=== PATIENT | female | born 1945 | race Hispanic/Latino ===

== ENCOUNTER 2019-01-19 11:37 | Emergency (ER) | payer MEDICARE ==
--- NOTE | 2019-01-19 11:47 | Emergency Department Report ---
Blank Doc - Documentation Documentation: This is a 73-year-old female brought by son for MH. Son stated that patient has not being taking her medications. Stated has psychosis. Denies any SI/HI. This initial assessment/diagnostic orders/clinical plan/treatment(s) is/are subject to change based on patient's health status, clinical progression and re- assessment by fellow clinical providers in the ED. Further treatment and workup at subsequent clinical providers discretion. Patient/guardians urged not to elope from the ED as their condition may be serious if not clinically assessed and managed. Initial orders include: 1- Patient sent to MAIN ED for further evaluation and treatment 2- MH labs
[2019-01-19 12:08] LABS: Basophils # (Auto) 0.1 K/mm3 (0.0-0.1); Basophils % (Auto) 0.7 % (0.0-1.8); Eosinophils # (Auto) 0.1 K/mm3 (0.0-0.4); Eosinophils % (Auto) 1.1 % (0.0-4.3); Hematocrit 38.1 % (30.3-42.9); Lymphocytes # (Auto) 1.2 K/mm3 (1.2-5.4); Lymphocytes % (Auto) 16.5 % (13.4-35.0); Mean Corpuscular HGB Conc 34 % (30-34); Mean Corpuscular Volume 93 fl (79-97); Monocytes # (Auto) 0.4 K/mm3 (0.0-0.8); Monocytes % (Auto) 5.9 % (0.0-7.3); Platelet Count 272 K/mm3 (140-440); Red Blood Count 4.11 M/mm3 (3.65-5.03); Red Cell Distribution Width 14.2 % (13.2-15.2)
[2019-01-19 12:28] LABS: BUN/Creatinine Ratio 14; Blood Urea Nitrogen 10 mg/dL (7-17); Calcium 8.7 mg/dL (8.4-10.2); Hemolysis Index 8
[2019-01-19 13:42] VITALS: BP 141/84
--- NOTE | 2019-01-19 14:51 | Emergency Department Report ---
HPI - General Chief Complaint: Psych Time Seen by Provider: 01/19/19 11:44 - HPI HPI: 73-year-old female presents to the emergency department, brought in by her son, for a mental health evaluation. The patient has a past psychiatric history of paranoid schizophrenia. The son describes some acute on chronic psychosis for this patient. He says that the patient has been hearing voices and responding to internal stimuli. He says that she will call him while he was at work before throughout the day saying that there are people in the house and that people are trying to kill her. This causes her to run up and down the stairs in the house and oftentimes she will have a fall. The patient has phoned the police multiple times secondary to these paranoid delusions and is also been "bothering my neighbors." She has a past medical history of diabetes and hypertension for which she has been compliant with her medications as the son gives them to her. However she is not always compliant with her psychiatric medications. ED Past Medical Hx - Past Medical History Hx Diabetes: Yes Hx Psychiatric Treatment: Yes (anxiety, schizophrenia) Additional medical history: peripheral neuropathy - Social History Smoking Status: Current Every Day Smoker Substance Use Type: None - Medications Home Medications: Home Medications Medication Instructions Recorded Confirmed Last Taken Type Oxybutynin [Ditropan] 0 mg PO BID 04/06/15 01/20/19 2 Days Ago History ~01/18/19 metFORMIN [Glucophage] 500 mg PO BID 04/06/15 01/20/19 2 Days Ago History ~01/18/19 risperiDONE [RisperiDONE] 2 mg PO DAILY 04/06/15 01/20/19 2 Days Ago History ~01/18/19 Losartan Potassium 50 mg PO DAILY 01/19/19 01/20/19 2 Days Ago History ~01/18/19 Risperdal 3 mg PO HS 01/19/19 01/20/19 Unknown History ED Review of Systems ROS: Stated complaint: PSYCH EVAL/INJURED HAND Other details as noted in HPI Comment: All other systems reviewed and negative Constitutional: denies: chills, fever Eyes: denies: eye pain, vision change ENT: denies: ear pain, throat pain Respiratory: denies: cough, shortness of breath Cardiovascular: denies: chest pain, palpitations Gastrointestinal: denies: abdominal pain, vomiting Genitourinary: denies: dysuria, discharge Musculoskeletal: denies: back pain, arthralgia Skin: denies: rash, lesions Neurological: denies: headache, weakness Psychiatric: denies: homicidal thoughts, suicidal thoughts Physical Exam - Physical Exam Vital Signs: Vital Signs 01/19/19 01/19/19 11:44 12:40 Temperature 98 F 97.4 F L Pulse Rate 101 H 93 H Respiratory 18 18 Rate Blood Pressure 201/178 Blood Pressure 141/84 [Right] O2 Sat by Pulse 98 99 Oximetry Physical Exam: GENERAL: The patient is well-developed well-nourished. HEENT: Normocephalic. Atraumatic. Patient has moist mucous membranes. EYES: Extraocular motions are intact. NECK: Supple. Trachea is midline. CHEST/LUNGS: Clear to auscultation. There is no respiratory distress noted. HEART/CARDIOVASCULAR: Regular. There is no tachycardia. There is no obvious murmur. ABDOMEN: Abdomen is soft, nontender. Patient has normal bowel sounds. There is no abdominal distention. SKIN: Skin is warm and dry. NEURO: The patient is awake, alert. The patient has no focal neurologic deficits. The patient has normal speech. MUSCULOSKELETAL: There is no tenderness or deformity. There is no evidence of acute injury. ED Course Vital Signs 01/19/19 01/19/19 11:44 12:40 Temperature 98 F 97.4 F L Pulse Rate 101 H 93 H Respiratory 18 18 Rate Blood Pressure 201/178 Blood Pressure 141/84 [Right] O2 Sat by Pulse 98 99 Oximetry ED Medical Decision Making - Lab Data Result diagrams: 01/19/19 11:54 01/19/19 11:54 - Medical Decision Making This patient presents to the emergency department for a mental health evaluation. Given the son's description of her recent behavior, the patient does appear to be having an exacerbation of her schizophrenia and appears to be having some acute psychosis. The patient was not as forthcoming with myself but did share some of her paranoia and delusions with the mental health route sales delivery drivers supervisor. With all of this information combined, the patient does appear to need a 1013 and inpatient psychiatric evaluation/treatment. Patient's labs are mostly unremarkable. She has some hyperglycemia does not appear to be in diabetic ketoacidosis. Blood sugar is about 230 and we will restart her metformin. Her blood pressure, at first, was severely elevated but came down to a much more reasonable, almost normal level, without any antihypertensive medication given. The rest of her labs thus far been unremarkable. We are waiting a urine sample for urinalysis and urine drug screen. If positive for UTI, the patient will be placed on an antibiotic. Otherwise she appears clear for psychiatric placement. - Differential Diagnosis schizophrenia, dementia, bipolar disorder, substance abuse Critical Care Time: No Critical care attestation.: If time is entered above; I have spent that time in minutes in the direct care of this critically ill patient, excluding procedure time. ED Disposition Clinical Impression: Acute psychosis, Paranoia, Delusions Disposition: [id number]/TX-65 PSY HOSP/PSY UNIT Is pt being admited?: No Condition: Stable Referrals: [facility] [Other] - 3-5 Days Time of Disposition: 14:53
[2019-01-19 20:53] LABS: Bacteria,Urine 2+ /HPF (Negative); Bilirubin,Urine NEG (Negative); Blood,Urine SM (Negative); Color,Urine Amber (Yellow); Hyaline Casts,Urine 4 /LPF; Mucus,Urine 2+ /HPF; Sperm,Urine 1+ /HPF (NP)
[2019-01-19 20:56] LABS: Benzodiazepines Screen,Urine PRESUMPTIVE NEGATIVE; Cannabinoid Screen,Urine PRESUMPTIVE NEGATIVE; Cocaine Screen,Urine PRESUMPTIVE NEGATIVE; Methadone Screen,Urine PRESUMPTIVE NEGATIVE; Opiate Screen,Urine PRESUMPTIVE NEGATIVE
[2019-01-19 21:12] LABS: Amphetamine Screen,Urine PRESUMPTIVE POSITIVE
== END 2019-01-19 20:45 ==
LOC: EEVIPCON 11:37 → ED 11:37
DX: F23 Brief psychotic disorder (principal); F22 Delusional disorders; E11.9 Type 2 diabetes mellitus without complications; F20.9 Schizophrenia, unspecified; F17.200 Nicotine dependence, unspecified, uncomplicated
CPT/HCPCS: 36415; 80048; 80307; 81001; 82962; 85025; 99284; G0480; 80320

== ENCOUNTER 2019-01-19 17:25 | Inpatient (IN) | payer MEDICARE ==
--- NOTE | 2019-01-20 15:31 | History and Physical Report ---
GP History & Physical - History of Present Illness Date of admission: 01/19/19 Date of Examination: 01/20/19 Reason for Admission: Impaired reality testing, Failure of Outpatient Treatment, Psychopathology interference, Severe anxiety/depression, Unable to care for self Chief Complaint: I am hearing voices and I am afraid. History of Present Illness: The patient is a 73yo disabled female with history of Schizophrenia. She presents with distressing auditory hallucinations and paranoid delusions. The patient reports that her son is being attacked and she hears her son screaming for help "help me, have mercy" repeatedly. She feels very distressed by this - stating "it is killing me" She also believes that the same people that are beating are son are coming after her. She feels unsafe outside of the hospital. She denies SI/HI. She is not able to sleep at night. She finds Risperidone beneficial. Legal Status: Voluntary Patient Problems: Current Active Problems Paranoid schizophrenia (Acute) Reaction to Hospitalization: Accepting Substance History - Substance History Drug Use: none Hx Tobacco Use: No Alcohol Use: No Past psychiatric history - Past Medical History Past Medical History: hypertension - past Psychiatric treatment and history Psych: Schizophrenia psychiatric treatment history: One previous admission at [facility] many years ago. No history of suicide attempt. - Social History Social history: (She is disabled, lives with her son) Review of Systems All systems: negative Psychiatric: hallucinations, paranoia Results - Results Labs/Vitals: Last Vital Signs Temp 98.1 F 01/20/19 11:00 Pulse 105 H 01/20/19 11:00 Resp 18 01/20/19 11:00 BP 110/57 01/20/19 11:00 Pulse Ox Physical Examination - Constitutional Vitals: Vital Signs Temp Pulse Resp BP Pulse Ox 98.1 F 105 H 18 110/57 01/20/19 11:00 01/20/19 11:00 01/20/19 11:00 01/20/19 11:00 Temperature -Last 24 Hours Temperature 98.1 F General appearance: Present: no acute distress - EENT Eyes: Present: PERRL ENT: hearing intact - Neck Neck: Present: supple - Respiratory Respiratory effort: normal Mental Status Exam - Vital signs Last Vital Signs Temp 98.1 F 01/20/19 11:00 Pulse 105 H 01/20/19 11:00 Resp 18 01/20/19 11:00 BP 110/57 01/20/19 11:00 Pulse Ox - Exam Orientation: time, place, person Affect: anxious Mood: congruent with affect Thought content: delusions Thought Process: Intact, Goal Oriented Perceptions: auditory, hallucinations Speech: normal rate and pattern Concentration: focused Motor activity: normal Level of consciousness: alert Memory: Intact Sleep Symptoms: Difficulty Falling Asleep Appetite: decreased Interaction: cooperative Assessment and Plan - Psychiatric problem (1) Paranoid schizophrenia Current Visit: Yes Status: Acute plan to address problem: PLAN Patient will be admitted for inpatient psychiatric evaluation, medication adjustment and close monitoring The patient's behavior, mood, sleep and appetite will be closely monitored. Patient will be enrolled in individual and group therapeutic sessions and encouraged to attend. Patient will be provided with a safe and structured environment. Patient's physical health needs will be addressed by the Hospitalist. Social Assessment will be completed, and the Carpenters Supervisor will work with patient and family to ensure a suitable and safe disposition Medication adjustment will be made as clinically indicated The patient agreed on the treatment plan, understood the risk, benefit, alternative treatment, potential consequence of no treatment, and gave informed consent. Physician Certification - Certification Statement Physician Certification Statement: This is an acknowledgement statement that SAMUEL CAMARGO is a 73 year old F who requires inpatient psychiatric admission for treatment which could reasonably be expected to improve the patient's condition for Schizophrenia Estimated period of time patient will need to remain in the hospital: 7 days Plan for post-hospital care: Out-patient care
[2019-01-20] MEDS ORDERED: TYLENOL PO ONE (16:01)
[2019-01-20] MEDS: GLUCOPHAGE PO SCH ×2 (16:15→21:33)
--- NOTE | 2019-01-20 17:57 | Consultation ---
History of Present Illness - Reason for Consult Consult date: 01/20/19 medical consult Requesting physician: EMANI ZAPATA - History of Present Illness 73-year-old female patient with significant past medical history of hypertension, diabetes mellitus and schizophrenia was admitted Inpatient psych unit and hospitalist service was requested for medical consult. Patient has history of diabetes mellitus on oral hypoglycemics metformin And hypertension on oral antihypertensives When I evaluated the patient confirms that she takes metformin Has no new complaints, denies chest pain shortness of breath Complaints of some foul smell while urinating No history suggestive of fever Past History Past Medical History: diabetes, hypertension Past Surgical History: No surgical history Social history: (She is disabled, lives with her son), full code. denies: smoking, alcohol abuse Family history: no significant family history Medications and Allergies Allergies Allergy/AdvReac Type Severity Reaction Status Date / Time No Known Allergies Allergy Verified 01/19/19 11:38 Home Medications Medication Instructions Recorded Confirmed Last Taken Type Oxybutynin [Ditropan] 0 mg PO BID 04/06/15 01/20/19 2 Days Ago History ~01/18/19 metFORMIN [Glucophage] 500 mg PO BID 04/06/15 01/20/19 2 Days Ago History ~01/18/19 risperiDONE [RisperiDONE] 2 mg PO DAILY 04/06/15 01/20/19 2 Days Ago History ~01/18/19 Losartan Potassium 50 mg PO DAILY 01/19/19 01/20/19 2 Days Ago History ~01/18/19 Risperdal 3 mg PO HS 01/19/19 01/20/19 Unknown History traZODone 50 mg PO 01/19/19 01/19/19 Unknown History Active Meds: Active Medications Metformin HCl (Glucophage) 500 mg PO BID [facility] Last Admin: 01/20/19 16:15 Dose: 500 mg Documented by: Risperidone (Risperdal) 2 mg PO BID [facility] Trazodone HCl (Desyrel) 50 mg PO QHS [facility] Review of Systems Constitutional: no fever, no chills Cardiovascular: no chest pain, no shortness of breath Respiratory: no cough, no shortness of breath Gastrointestinal: no nausea, no vomiting Genitourinary Female: other (discomfort when urinating/foul-smelling urine) Musculoskeletal: no myalgias, no arthritis Integumentary: no rash, no lesions Neurological: no paralysis, no seizures Exam - Constitutional Vitals: Temp Pulse Resp BP Pulse Ox 98.1 F 105 H 18 110/57 01/20/19 11:00 01/20/19 11:00 01/20/19 11:00 01/20/19 11:00 General appearance: Present: no acute distress, well-nourished, obese - EENT Eyes: Present: PERRL, EOM intact - Neck Neck: Present: supple, normal ROM - Respiratory Respiratory effort: normal Respiratory: bilateral: diminished, negative: rales, rhonchi, wheezing - Cardiovascular Rhythm: regular Heart Sounds: Present: S1 & S2 - Extremities Extremities: no ischemia, No edema - Abdominal General gastrointestinal: Present: soft, non-tender, non-distended, normal bowel sounds - Integumentary Integumentary: Present: clear, warm - Musculoskeletal Musculoskeletal: strength equal bilaterally - Psychiatric Psychiatric: cooperative - Neurologic Neurologic: moves all extremities Results - Labs Labs: Abnormal lab results 01/20/19 Range/Units 11:23 POC Glucose 133 H (70-105) Assessment and Plan --Type 2 diabetes mellitus; moderate control Accu-Chek sliding scale coverage and ADA diet Continue metformin, check A1c --Hypertension; well controlled Oral Hydralazine as needed --Urinary tract infection; empiric antibiotics nitrofurantoin Urine cultures --Obesity; BMI 37, advised weight reduction but medically stable --Tobacco use; nicotine patch as needed --We will give prophylaxis; SCDs when not ambulating Monitor patient closely and adjust management as needed Plan of care reviewed with the patient's nurse Thank you for this consult, we will follow the patient along with you.
[2019-01-20] MEDS: MACROBID PO SCH (21:33)
[2019-01-20] MEDS: RisperDAL PO SCH (21:33)
[2019-01-20] MEDS: DESYREL PO SCH (21:33)
[2019-01-20] MEDS: HumaLOG SUB-Q SCH (22:00)
[2019-01-20] MEDS ORDERED: NON-FORMULARY (Trazodone 50 MG) PO SCH (22:00)
[2019-01-21] MEDS: HumaLOG SUB-Q SCH ×4 (09:34→21:38)
[2019-01-21] MEDS: MACROBID PO SCH ×2 (09:59→21:37)
[2019-01-21] MEDS: HABITROL TD SCH (09:59)
[2019-01-21] MEDS: RisperDAL PO SCH ×2 (09:59→21:55)
[2019-01-21] MEDS: GLUCOPHAGE PO SCH ×2 (09:59→21:37)
--- NOTE | 2019-01-21 18:17 | Progress Note ---
Subjective Date of service: 01/21/19 Principal diagnosis: Schizophrenia, paranoid type Subjective Comment: Ms. Cobb is a 73-year-old female diagnosed with schizophrenia admitted for acute psychosis due to nonadherence to home medications. Ms. Cobb continues to have auditory hallucinations that occur throughout the day. She states they are somewhat improved by watching TV which she finds distracting. She states that the auditory hallucinations are much worse at night and she continues to hear her son being attacked which is quite disturbing. She states the Risperdal is helping a little bit and she denies side effects from her medications. She states the Risperdal does not make her sleepy during the day. She reports that she is tired and did not sleep well last night. She denies suicidal ideation and homicidal ideation. She also denies current physical health complaints. At home, Ms. Cobb was defecating and urinating on the floor as an acting out behavior. She has continued to urinate on herself at the hospital to gain attention from staff. Last Vital Signs Temp 98.1 F 01/20/19 11:00 Pulse 105 H 01/20/19 11:00 Resp 18 01/20/19 11:00 BP 110/57 01/20/19 11:00 Pulse Ox Objective - Criteria for Continued Treatment Criteria for Continued Treatment: Understanding Diagnosis and need for Medication, Improving Treatment / Medication Compliance, Confronting Denial of Illness, Stablizing Level of Functioning, Improving Emotional/Socia - Mental Status Mental Status: Alert - Objective Observation Participation Level: Full Assessment and Plan - Patient Problems (1) Paranoid schizophrenia Current Visit: Yes Status: Acute Plan to address problem: Continue Risperdal 2 mg by mouth every morning and change evening dose to 3 mg by mouth daily at bedtime continue trazodone 50 mg by mouth daily at bedtime.
[2019-01-21] MEDS: DESYREL PO SCH (21:37)
[2019-01-22] MEDS: HumaLOG SUB-Q SCH ×3 (11:00→22:59)
[2019-01-22] MEDS: GLUCOPHAGE PO SCH ×2 (11:02→22:19)
[2019-01-22] MEDS: HABITROL TD SCH (11:02)
[2019-01-22] MEDS: RisperDAL PO SCH ×2 (11:03→22:19)
[2019-01-22] MEDS: MACROBID PO SCH ×2 (11:04→22:19)
--- NOTE | 2019-01-22 16:33 | Progress Note ---
Subjective Date of service: 01/22/19 Principal diagnosis: Schizophrenia, paranoid type Subjective Comment: Mrs. Cobb is a 73-year-old female with schizophrenia who was admitted for auditory hallucinations and persecutory delusions. She slept well last night with her medication and she is medication compliant. She states that the increased dose of Risperdal in the evening helped her slightly. She states that she continues to have auditory hallucinations severely in the evening and continues to have been in the day as well. She describes the hallucinations as multiple voices of white folks. They continue to be disturbing and scary in nature. Of note Mrs. Cobb was on oriented to time she was aware that today the month is January and Thursday. She believes the year is 1979 and does not know who the president is. Bao Cobb denies command auditory hallucinations and denies visual hallucinations. She denies suicidal and homicidal ideation. She denies side effects of her medication. RNs reported that the patient has edema in bilateral lower extremities. The patient states this usually only occurs in hot weather and that she has been keeping her legs/feet elevated. She notes ankle and wrist pain on the right. She denies chest pain, shortness of breath, headache, dizziness, nausea and vomiting. Last Vital Signs Temp 98.9 F 01/21/19 19:47 Pulse 84 01/21/19 19:46 Resp 20 01/21/19 19:47 BP 156/74 01/21/19 19:47 Pulse Ox 95 01/21/19 19:46 Laboratory Results - last 72 hr 01/20/19 01/20/19 01/20/19 11:23 16:12 19:23 POC Glucose 133 H 238 H 185 H Hemoglobin A1c 01/21/19 01/21/19 01/21/19 07:49 10:38 11:55 POC Glucose 142 H 162 H Hemoglobin A1c 6.6 H 01/21/19 01/21/19 01/22/19 16:31 19:07 07:36 POC Glucose 211 H 273 H 131 H Hemoglobin A1c 01/22/19 01/22/19 11:52 16:08 POC Glucose 119 H 118 H Hemoglobin A1c Objective - Criteria for Continued Treatment Criteria for Continued Treatment: Reducing Isolative Behaviors, Improving Treatment / Medication Compliance, Stablizing Level of Functioning, Improving Emotional/Socia - Mental Status Mental Status: Oriented x [address] - Objective Observation Participation Level: Moderate Assessment and Plan - Patient Problems (1) Paranoid schizophrenia Current Visit: Yes Status: Acute Plan to address problem: Continue Risperdal 2 mg by mouth every morning and 3 mg by mouth daily at bedtime. Continue trazodone 50 mg by mouth daily at bedtime. Discussed possible need to increase Risperdal to 4mg at bedtime, but patient is concerned about side effects. (2) Bilateral lower extremity edema Current Visit: Yes Status: Acute Plan to address problem: Consult hospitalist
--- NOTE | 2019-01-22 20:57 | Event Note ---
Date: 01/22/19 Patient complaning of swelling of the lower extremities going on for a long time and said that she has been taking lasix for the swelling,there is no history of chest pain , shortness of breath or cough. Exam: CVS Showed normal heart sounds with no gallops or murmurs, and no pitting edema , Lung exam showed no rales or crackles. Plan; 1. 2 D Echo in a.m 2. Bnp level in a.m 3. will consider lasix treatment after review of echo and Lab result.
[2019-01-22] MEDS: DESYREL PO SCH (22:19)
[2019-01-23] MEDS: HumaLOG SUB-Q SCH ×4 (09:23→22:43)
[2019-01-23] MEDS: GLUCOPHAGE PO SCH ×2 (09:27→22:45)
[2019-01-23] MEDS: MACROBID PO SCH ×2 (09:29→22:45)
[2019-01-23] MEDS: APRESOLINE PO PRN ×2 (09:30→16:55)
[2019-01-23] MEDS: RisperDAL PO SCH ×2 (09:30→22:45)
[2019-01-23] MEDS: HABITROL TD SCH (09:38)
--- NOTE | 2019-01-23 13:51 | Progress Note ---
Subjective Date of service: 01/23/19 Principal diagnosis: Schizophrenia, paranoid type Subjective Comment: Patient states increased dose of Risperdal has helped. She continues to have severe AH in the evening, but she has not had any AH today thus far. She slept well last night. She continues to have difficulty with maintaining hygiene and has be reminded to shower. She also continues not to want to get up to urinate and has incontinence due to this behavior. Per RNs she often states she has already gone to the bathroom, but they continue to ask her to get up to urinate regularly. This routine has help with incontinence. The patient's memory continues to be very poor - it is unclear if she remembers that she has not urinated or showered. She also stated this morning that she has not seen the MD since she came to the hospital, but was able to remember once she saw this MD today. She denies SI/HI. She reports feeling fatigued and continues to have pain. She would like Tylenol to improve pain. Objective - Criteria for Continued Treatment Criteria for Continued Treatment: Improving Level of Functioning, Improving Treatment / Medication Compliance, Stablizing Level of Functioning, Improving Emotional/Socia - Symptoms/Impairments Symptoms/Impairments: Grooming: poor. Behavior: cooperative. Motor: psychomotor retardation. Speech: normal. Mood: "so-so". Affect: restricted. Thought content: +AH. Denies VH, SI, and HI. Thought process: goal directed. Reasoning: fair. Impulse control: fair. Insight/Judgment: fair - Mental Status Mental Status: Oriented x [address] - Objective Observation Participation Level: Moderate Assessment and Plan - Patient Problems (1) Paranoid schizophrenia Current Visit: Yes Status: Acute Plan to address problem: Continue current medications. Will reassess tomorrow for need to increase antipsychotic. (2) Bilateral lower extremity edema Current Visit: Yes Status: Acute Plan to address problem: Hospitalist assessed yesterday, checked BNP and ordered echo, which has not been completed yet. Patient has had elevated blood pressures - called hospitalist to re-eval HTN meds. No end-organ symptoms (no chest pain, headache, dizziness, SOB, or nausea/vomiting today), so will wait for recommendations of hospitalist for elevated blood pressure/need for lasix.
[2019-01-23] MEDS: TYLENOL PO PRN (16:53)
[2019-01-23] MEDS: DESYREL PO SCH (22:45)
[2019-01-24] MEDS ORDERED: HABITROL TD ONE (10:40)
[2019-01-24] MEDS: HumaLOG SUB-Q SCH ×2 (11:30→17:35)
[2019-01-24] MEDS: GLUCOPHAGE PO SCH ×2 (11:41→23:28)
[2019-01-24] MEDS: MACROBID PO SCH ×2 (11:42→23:28)
[2019-01-24] MEDS: RisperDAL PO SCH ×2 (11:43→23:28)
[2019-01-24] MEDS: TYLENOL PO PRN (13:55)
--- NOTE | 2019-01-24 17:46 | Progress Note ---
Subjective Date of service: 01/24/19 Principal diagnosis: Schizophrenia, paranoid type Subjective Comment: Patient states she feels content today and denies AVH for the past 24 hours. She denies SI/HI. Mood is "content." She continues to have pain. She would like Tylenol to improve pain. Objective - Criteria for Continued Treatment Criteria for Continued Treatment: Improving Level of Functioning, Stablizing Level of Functioning, Improving Emotional/Socia - Mental Status Mental Status: Oriented x [address] - Objective Observation Participation Level: Full Assessment and Plan - Patient Problems (1) Paranoid schizophrenia Current Visit: Yes Status: Acute Plan to address problem: Continue Risperdal at current dose. Plan to discharge home tomorrow. (2) Bilateral lower extremity edema Current Visit: Yes Status: Acute Plan to address problem: Follow up with PCP as an outpatient.
[2019-01-24] MEDS: DESYREL PO SCH (23:29)
[2019-01-25] MEDS: GLUCOPHAGE PO SCH (10:06)
[2019-01-25] MEDS: HumaLOG SUB-Q SCH ×5 (10:07→16:56)
[2019-01-25] MEDS: MACROBID PO SCH (10:07)
[2019-01-25] MEDS: RisperDAL PO SCH (10:07)
[2019-01-25] MEDS: HABITROL TD SCH (10:15)
[2019-01-25] MEDS: TYLENOL PO PRN (12:36)
[2019-01-25 17:51] VITALS: BP 139/55
--- NOTE | 2019-01-25 20:14 | Discharge Summary ---
Providers - Providers Date of Admission: 01/19/19 18:56 Date of discharge: 01/25/19 Attending physician: AMARJIT MEDRANO MD 01/19/19 17:40 Consult to Physician [CONS] Routine Comment: Consulting Provider: HU KIM Physician Instructions: Reason For Exam: MEDICAL MANAGEMENT Primary care physician: SIGNAL TOWER DIRECTOR Hospitalization Reason for admission: hallucinations, delusions, suicidal ideation Admitting Diagnosis: F20.9 - SCHIZOPHRENIA, UNSPECIFIED Condition: Good Pertinent studies: Height Height 5 ft 11 in Height 5 ft 11 in Height 5 ft 9 in Weight Weight 265 kg Weight 265 kg Weight 265 kg Weight 120.202 kg Weight 120.2 kg Laboratory Results - last 72 hr 01/22/19 01/22/19 01/23/19 20:54 21:03 06:49 POC Glucose 141 H 128 H NT-Pro-B Natriuret Pep 128.5 01/23/19 01/23/19 01/23/19 11:57 16:29 20:44 POC Glucose 95 117 H 200 H NT-Pro-B Natriuret Pep 01/24/19 01/24/19 01/24/19 06:58 11:36 19:30 POC Glucose 114 H 103 212 H NT-Pro-B Natriuret Pep 01/25/19 01/25/19 01/25/19 08:40 11:41 16:40 POC Glucose 181 H 97 181 H NT-Pro-B Natriuret Pep ECHOCARDIOGRAM: EF 45-50% Disposition: DC-01 TO HOME OR SELFCARE Allergies/Adverse Reactions: Allergies No Known Allergies Allergy (Verified 01/19/19 11:38) Vital Signs: Last Vital Signs Temp 98.3 F 01/25/19 09:00 Pulse 75 01/25/19 09:00 Resp 18 01/25/19 09:00 BP 139/55 01/25/19 09:00 Pulse Ox 96 01/25/19 09:00 Last Lab: Laboratory Last Values POC Glucose 181 (70-105) H 01/25/19 16:40 Hemoglobin A1c 6.6 % (4-6) H 01/21/19 10:38 NT-Pro-B Natriuret Pep 128.5 pg/mL (0-900) 01/22/19 21:03 - Discharge Diagnoses (1) Paranoid schizophrenia Status: Chronic (2) Bilateral lower extremity edema Status: Chronic Core Measure Documentation - Palliative Care Palliative Care/ Comfort Measures: Not Applicable - Core Measures Any of the following diagnoses?: none Exam - Constitutional Vitals: Temp Pulse Resp BP Pulse Ox 98.3 F 75 18 139/55 96 01/25/19 09:00 01/25/19 09:00 01/25/19 09:00 01/25/19 09:00 01/25/19 09:00 General appearance: Present: no acute distress - EENT Eyes: Present: EOM intact ENT: hearing intact - Respiratory Respiratory effort: normal - Extremities Extremities: pulses symmetrical - Psychiatric Psychiatric: appropriate mood/affect, intact judgment & insight, no memory intact, cooperative - Neurologic Neurologic: CNII-XII intact, moves all extremities, no gait normal - Allied Health Allied health notes reviewed: nursing, social work Plan Activity: no restrictions Weight Bearing Status: Full Weight Bearing Diet: low fat, low cholesterol, low salt Follow up with: PRIMARY CARE, [Primary Care Provider] - 7 Days [facility] [Outside] - 7 Days Prescriptions: traZODone [Desyrel] 50 mg PO QHS PRN #30 tablet PRN Reason: Insomnia risperiDONE [RisperDAL] 3 mg PO QHS #30 tablet risperiDONE [RisperDAL] 2 mg PO QAM #60 tablet
== END 2019-01-25 20:40 | disposition home or self-care (01) | DRG 885 ==
LOC: 3A 17:25 → UNDOADMIN 17:25 → 5A 18:56
PROVIDERS: ADMIT Psychiatry & Neurology Psychiatry; ATTEND Psychiatry & Neurology Psychiatry
DX: F20.0 Paranoid schizophrenia (principal); R45.851 Suicidal ideations; N39.0 Urinary tract infection, site not specified; Z68.45 Body mass index [BMI] 70 or greater, adult; R60.0 Localized edema; I10 Essential (primary) hypertension; E11.9 Type 2 diabetes mellitus without complications; E66.9 Obesity, unspecified; F17.200 Nicotine dependence, unspecified, uncomplicated; F41.9 Anxiety disorder, unspecified; Z79.84 Long term (current) use of oral hypoglycemic drugs; Z79.899 Other long term (current) drug therapy; Z71.3 Dietary counseling and surveillance
CPT/HCPCS: 36415; 80048; 80307; 80320; 81001; 82962; 83036; 83880; 85025; 87086; 93306; G0378; G0480; J1815

== ENCOUNTER 2020-04-30 17:51 | Emergency (ER) | payer MEDICARE | END 2020-04-30 19:41 | disposition left against medical advice (07) | LOC: ED 17:51 | DX: Z53.21 Procedure and treatment not carried out due to patient leaving prior to being seen by health care provider (principal) ==

== ENCOUNTER 2020-08-14 16:35 | Emergency (ER) | payer MEDICARE ==
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
[2020-08-14 19:56] LABS: Basophils % (Auto) 0.5 % (0.0-1.8); Eosinophils # (Auto) 0.1 K/mm3 (0.0-0.4); Eosinophils % (Auto) 1.4 % (0.0-4.3); Hematocrit 39.9 % (30.3-42.9); Hemoglobin 13.4 gm/dl (10.1-14.3); Lymphocytes # (Auto) 2.4 K/mm3 (1.2-5.4); Lymphocytes % (Auto) 25.5 % (13.4-35.0); Mean Corpuscular HGB Conc 34 % (30-34); Mean Corpuscular Volume 92 fl (79-97); Monocytes # (Auto) 0.7 K/mm3 (0.0-0.8); Monocytes % (Auto) 7.6 % (0.0-7.3); Platelet Count 255 K/mm3 (140-440); Red Blood Count 4.32 M/mm3 (3.65-5.03)
[2020-08-14 20:06] LABS: BUN/Creatinine Ratio 35; Blood Urea Nitrogen 28 mg/dL (7-17); Calcium 9.3 mg/dL (8.4-10.2); Hemolysis Index 16
[2020-08-14 20:59] LABS: Bacteria,Urine 1+ /HPF (Negative); Bilirubin,Urine NEG (Negative); Blood,Urine NEG (Negative); Color,Urine Yellow (Yellow); Mucus,Urine FEW /HPF; Protein,Urine <15 mg/dL mg/dL (Negative); RBC,Urine < 1.0 /HPF (0.0-6.0); Urobilinogen,Urine < 2.0 mg/dL (<2.0)
[2020-08-14 21:04] LABS: Amphetamine Screen,Urine PRESUMPTIVE NEGATIVE; Benzodiazepines Screen,Urine PRESUMPTIVE NEGATIVE; Cannabinoid Screen,Urine PRESUMPTIVE NEGATIVE; Cocaine Screen,Urine PRESUMPTIVE NEGATIVE; Methadone Screen,Urine PRESUMPTIVE NEGATIVE; Opiate Screen,Urine PRESUMPTIVE NEGATIVE
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
[2020-08-15] MEDS ORDERED: LINDANE 1% TP ONE (10:00)
[2020-08-15] MEDS: ZIPRASIDONE MESYLATE 20 MG VIAL IM SCH ×2 (11:00→22:32)
[2020-08-15] MEDS ORDERED: WATER FOR INJ Sterile (PF) 10 ML ONE ×2 (11:16→21:56)
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
[2020-08-16] MEDS ORDERED: risperiDONE 0.25 MG TAB PO SCH (10:00)
[2020-08-16] MEDS ORDERED: risperiDONE 1 MG TAB PO SCH (10:00)
[2020-08-16] MEDS ORDERED: VALPROIC ACID 250 MG CAP PO SCH (10:00)
[2020-08-16 12:20] VITALS: BP 158/67
== END 2020-08-16 14:25 ==
LOC: EEVIPCON 16:35 → ED 16:35
DX: F20.0 Paranoid schizophrenia (principal); E11.40 Type 2 diabetes mellitus with diabetic neuropathy, unspecified; F41.9 Anxiety disorder, unspecified; Z79.899 Other long term (current) drug therapy
CPT/HCPCS: 36415; 80048; 80307; 81001; 85025; 96372; 99285; J3486; 80320; G0480

== ENCOUNTER 2020-11-06 10:30 | Emergency (ER) | payer MEDICARE ==
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
[2020-11-06 12:02] LABS: Albumin 3.6 g/dL (3.9-5); Calcium 9.4 mg/dL (8.4-10.2)
[2020-11-06 12:04] LABS: Basophils % (Auto) 0.4 % (0.0-1.8); Eosinophils # (Auto) 0.1 K/mm3 (0.0-0.4); Eosinophils % (Auto) 0.9 % (0.0-4.3); Hematocrit 38.8 % (30.3-42.9); Hemoglobin 12.6 gm/dl (10.1-14.3); Lymphocytes # (Auto) 1.1 K/mm3 (1.2-5.4); Lymphocytes % (Auto) 13.6 % (13.4-35.0); Mean Corpuscular HGB Conc 33 % (30-34); Mean Corpuscular Volume 96 fl (79-97); Monocytes # (Auto) 0.6 K/mm3 (0.0-0.8); Monocytes % (Auto) 6.9 % (0.0-7.3); Platelet Count 238 K/mm3 (140-440); Red Blood Count 4.06 M/mm3 (3.65-5.03)
[2020-11-06 12:50] LABS: Bilirubin,Urine NEG (Negative); Blood,Urine NEG (Negative); Color,Urine Yellow (Yellow); Mucus,Urine FEW /HPF; Protein,Urine <15 mg/dL mg/dL (Negative)
[2020-11-06 12:58] LABS: Amphetamine Screen,Urine Negative; Benzodiazepines Screen,Urine Negative; Cannabinoid Screen,Urine Negative; Cocaine Screen,Urine Negative; Methadone Screen,Urine Negative; Opiate Screen,Urine Negative
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
[2020-11-07] MEDS ORDERED: risperiDONE 1 MG TAB PO SCH (11:00)
[2020-11-07 18:48] VITALS: BP 168/59
== END 2020-11-07 18:35 ==
LOC: ED 10:30
DX: F20.0 Paranoid schizophrenia (principal); E11.9 Type 2 diabetes mellitus without complications; F41.9 Anxiety disorder, unspecified; F17.200 Nicotine dependence, unspecified, uncomplicated; Z79.899 Other long term (current) drug therapy
CPT/HCPCS: 36415; 80053; 80307; 81001; 82962; 84443; 85025; 99285; U0003; 80320; G0480

== ENCOUNTER 2020-11-07 15:35 | Inpatient (IN) | payer MEDICARE ==
[2020-11-07] MEDS: risperiDONE 0.25 MG TAB PO SCH (21:21)
[2020-11-07] MEDS: traZODone 50 MG TAB PO SCH (21:22)
[2020-11-07] MEDS: OMEGA-3 FATTY ACIDS/FISH OIL 1 GRAM CAP PO SCH (21:22)
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
[2020-11-08] MEDS: risperiDONE 0.25 MG TAB PO SCH ×2 (09:14→21:26)
[2020-11-08] MEDS: OMEGA-3 FATTY ACIDS/FISH OIL 1 GRAM CAP PO SCH ×2 (09:14→21:25)
[2020-11-08 09:59] LABS: Chol/HDL Ratio 2.95 %
[2020-11-08] MEDS: traZODone 50 MG TAB PO SCH (21:25)
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
[2020-11-09] MEDS: metFORMIN 500 MG TAB PO SCH ×2 (09:28→17:01)
[2020-11-09] MEDS: OMEGA-3 FATTY ACIDS/FISH OIL 1 GRAM CAP PO SCH ×2 (09:28→21:46)
[2020-11-09] MEDS: risperiDONE 0.25 MG TAB PO SCH ×2 (09:28→21:46)
[2020-11-09] MEDS: LOSARTAN 50 MG TAB PO SCH (09:28)
[2020-11-09] MEDS ORDERED: NON-FORMULARY EACH (Losartan Potassium 50 MG) PO SCH (10:00)
[2020-11-09] MEDS: INSULIN LISPRO 100 UNIT/ML SUB-Q SCH ×2 (11:52→17:00)
[2020-11-09] MEDS: traZODone 50 MG TAB PO SCH (21:46)
[2020-11-10] MEDS: INSULIN LISPRO 100 UNIT/ML SUB-Q SCH ×5 (00:27→21:40)
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
--- NOTE | 2020-11-10 08:53 | Progress Note ---
Subjective Date of service: 11/10/20 Principal diagnosis: schizophrenia Subjective Comment: During my interview with the patient today. She is a/o x2. She says she feels like she's getting better. The patient denies SI/HI or hallucinations of any kind. Reason for continued inpatient treatment: The patient had failed outpatient treatment due to her noncompliance with monthly injections. Will resume and monitor for effectiveness and side effects/ REVIEW OF SYSTEMS Constitutional: Negative for weight loss ENT: Negative for stridor Respiratory: Negative for cough or hemoptysis All other systems reviewed and are negative MENTAL STATUS EXAMINATION General Appearance and Behavior: Age appropriate, fair hygiene, not wearing appropriate clothes, good eye contact, uncooperative and irritable Cooperation: Withdrawn Psychomotor Behavior: Psychomotor agitation Mood: "alright" Affect and affective range: congruent with stated mood Thought Process: goal oriented Thought Content: Illogical Speech: Normal tone and pace Intellectual Functioning: Average Suicidal Ideation: Denies SI Homicidal Ideation: "not yet" Impulse Control: Impaired Insight and Judgment: Limited insight and judgment Memory: Impaired Attention: Divided attention impaired Orientation: Alert, oriented, Assessment and Plan (1) Paranoid schizophrenia (F20.0) Current Visit: No Status: Chronic Treatment Plan Patient admitted for inpatient psychiatric evaluation, medication adjustment and close monitoring The patient's behavior, mood, sleep and appetite will be closely monitored. Patient enrolled in individual and group therapeutic sessions and encouraged to attend. Patient provided with a safe and structured environment. Patient's physical health needs will be addressed by the Hospitalist. Hospitalist Consulted Labs including CBC, CMP, Lipid profile and Hemoglobin A1C levels ordered for baseline reference Social Assessment will be completed and the Driver/Refuse Collector will work with patient and family to ensure a suitable and safe disposition Medication adjustment will be made as clinically indicated Invega Sustenna 234mg IM x 1 tomorrow Will wean off Risperidone starting tomorrow Usual Wellness Scientologist/Preservation: - Start Trazodone 50 mg po QHS & 50 mg po QHS PRN between 10 PM & 2 AM for insomnia - Start Melatonin 5 mg po QHS to promote circadian rhythm - Start [place]-3 for brain health, reduce impulsivity, and as adjunctive treatment for mood disorder, continue upon discharge given overall benefits. - Start B1 prophylaxis with 200 mg po for 5 days The patient agreed on the treatment plan, understood the risk, benefit, alternative treatment, potential consequence of no treatment, and gave informed consent. Estimated days: 5 Post hospital care: primary care provider, psychiatric provider Medications and Allergies Allergies Allergy/AdvReac Type Severity Reaction Status Date / Time No Known Allergies Allergy Verified 01/19/19 11:38 Home Medications Medication Instructions Recorded Confirmed Last Taken Type metFORMIN [Glucophage] 500 mg PO BID 04/06/15 11/08/20 3 Days Ago History ~08/11/20 Losartan Potassium 50 mg PO DAILY 01/19/19 11/08/20 3 Days Ago History ~08/11/20 Lispro Insulin [HumaLOG] 0 unit SUB-Q ACHS units 01/25/19 11/08/20 3 Days Ago Rx ~08/11/20 risperiDONE [RisperDAL] 2 mg PO QAM #60 tablet 01/25/19 11/08/20 3 Days Ago Rx ~08/11/20 risperiDONE [RisperDAL] 3 mg PO QHS #30 tablet 01/25/19 11/08/20 1 Day Ago Rx ~08/13/20 traZODone [Desyrel] 50 mg PO QHS PRN #30 tablet 01/25/19 11/08/20 3 Days Ago Rx ~08/11/20 Active Meds: Active Medications Fish Oil ([place]-3 Fatty Acids/Fish Oil 1 Gram Cap) 2,000 mg PO BID [facility] Last Admin: 11/09/20 21:46 Dose: 2,000 mg Documented by: Insulin Human Lispro (Insulin Lispro 100 Unit/Ml) 0 unit SUB-Q ACHS [facility]; Protocol Last Admin: 11/10/20 00:27 Dose: Not Given Documented by: Losartan Potassium (Losartan 50 Mg Tab) 50 mg PO QDAY [facility] Last Admin: 11/09/20 09:28 Dose: 50 mg Documented by: Metformin HCl (Metformin 500 Mg Tab) 500 mg PO BIDDIAB [facility] Last Admin: 11/09/20 17:01 Dose: 500 mg Documented by: Risperidone (Risperidone 0.25 Mg Tab) 2 mg PO BID [facility] Last Admin: 11/09/20 21:46 Dose: 2 mg Documented by: Trazodone HCl (Trazodone 50 Mg Tab) 50 mg PO QHS [facility] Last Admin: 11/09/20 21:46 Dose: 50 mg Documented by: Results - Results Labs/Vitals: Laboratory Last Values POC Glucose 109 mg/dL (70-105) H 11/09/20 20:09 Hemoglobin A1c 6.9 % (4-6) H 11/08/20 08:41 Magnesium 1.90 mg/dL (1.7-2.3) 11/08/20 08:41 Triglycerides 83 mg/dL (2-149) 11/08/20 08:41 Cholesterol 133 mg/dL (50-199) 11/08/20 08:41 LDL Cholesterol Direct 86 mg/dL (50-130) 11/08/20 08:41 HDL Cholesterol 45 mg/dL (40-59) 11/08/20 08:41 Cholesterol/HDL Ratio 2.95 % 11/08/20 08:41 TSH 2.290 mlU/mL (0.270-4.200) 11/08/20 08:41 Last Vital Signs Temp 98.4 F 11/09/20 19:59 Pulse 89 11/09/20 19:59 Resp 20 11/09/20 19:59 BP 150/62 11/09/20 19:59 Pulse Ox 98 11/09/20 19:59
[2020-11-10] MEDS: metFORMIN 500 MG TAB PO SCH ×2 (12:17→17:26)
[2020-11-10] MEDS: OMEGA-3 FATTY ACIDS/FISH OIL 1 GRAM CAP PO SCH ×2 (12:17→21:39)
[2020-11-10] MEDS: risperiDONE 0.25 MG TAB PO SCH (12:18)
[2020-11-10] MEDS: LOSARTAN 50 MG TAB PO SCH (12:19)
[2020-11-10] MEDS: risperiDONE 1 MG TAB PO SCH ×2 (14:19→21:39)
[2020-11-10] MEDS: traZODone 50 MG TAB PO SCH (21:39)
--- NOTE | 2020-11-11 08:12 | Progress Note ---
Subjective Date of service: 11/11/20 Principal diagnosis: schizophrenia Subjective Comment: During my interview with the patient today. She is a/o x 3. She is lying in bed resting. The patient denies SI/HI or hallucinations of any kind. She says she felt okay and she slept good. Reason for continued inpatient treatment: The patient had failed outpatient treatment due to her noncompliance with monthly injections. Invega Sustenna ordered. Will monitor for effectiveness and side effects. REVIEW OF SYSTEMS Constitutional: Negative for weight loss ENT: Negative for stridor Respiratory: Negative for cough or hemoptysis All other systems reviewed and are negative MENTAL STATUS EXAMINATION General Appearance and Behavior: Age appropriate, fair hygiene, not wearing appropriate clothes, good eye contact, uncooperative and irritable Cooperation: Withdrawn Psychomotor Behavior: Psychomotor agitation Mood: "okay" Affect and affective range: congruent with stated mood Thought Process: goal oriented Thought Content: Illogical Speech: Normal tone and pace Intellectual Functioning: Average Suicidal Ideation: Denies SI Homicidal Ideation: "not yet" Impulse Control: Impaired Insight and Judgment: Limited insight and judgment Memory: Impaired Attention: Divided attention impaired Orientation: Alert, oriented, Assessment and Plan (1) Paranoid schizophrenia (F20.0) Current Visit: No Status: Chronic Treatment Plan Patient admitted for inpatient psychiatric evaluation, medication adjustment and close monitoring The patient's behavior, mood, sleep and appetite will be closely monitored. Patient enrolled in individual and group therapeutic sessions and encouraged to attend. Patient provided with a safe and structured environment. Patient's physical health needs will be addressed by the Hospitalist. Hospitalist Consulted Labs including CBC, CMP, Lipid profile and Hemoglobin A1C levels ordered for baseline reference Social Assessment will be completed and the Welfare Eligibility Worker will work with patient and family to ensure a suitable and safe disposition Medication adjustment will be made as clinically indicated Invega Sustenna 234mg IM x 1 Decrease Risperidone to 1mg po BID Usual Wellness Confucianist/Preservation: - Start Trazodone 50 mg po QHS & 50 mg po QHS PRN between 10 PM & 2 AM for insomnia - Start Melatonin 5 mg po QHS to promote circadian rhythm - Start [place]-3 for brain health, reduce impulsivity, and as adjunctive treatment for mood disorder, continue upon discharge given overall benefits. - Start B1 prophylaxis with 200 mg po for 5 days The patient agreed on the treatment plan, understood the risk, benefit, alternative treatment, potential consequence of no treatment, and gave informed consent. Estimated days: 5 Post hospital care: primary care provider, psychiatric provider Medications and Allergies Allergies Allergy/AdvReac Type Severity Reaction Status Date / Time No Known Allergies Allergy Verified 01/19/19 11:38 Home Medications Medication Instructions Recorded Confirmed Last Taken Type metFORMIN [Glucophage] 500 mg PO BID 04/06/15 11/08/20 3 Days Ago History ~08/11/20 Losartan Potassium 50 mg PO DAILY 01/19/19 11/08/20 3 Days Ago History ~08/11/20 Lispro Insulin [HumaLOG] 0 unit SUB-Q ACHS units 01/25/19 11/08/20 3 Days Ago Rx ~08/11/20 risperiDONE [RisperDAL] 2 mg PO QAM #60 tablet 01/25/19 11/08/20 3 Days Ago Rx ~08/11/20 risperiDONE [RisperDAL] 3 mg PO QHS #30 tablet 01/25/19 11/08/20 1 Day Ago Rx ~08/13/20 traZODone [Desyrel] 50 mg PO QHS PRN #30 tablet 01/25/19 11/08/20 3 Days Ago Rx ~08/11/20 Active Meds: Active Medications Fish Oil ([place]-3 Fatty Acids/Fish Oil 1 Gram Cap) 2,000 mg PO BID [facility] Last Admin: 11/10/20 21:39 Dose: 2,000 mg Documented by: Insulin Human Lispro (Insulin Lispro 100 Unit/Ml) 0 unit SUB-Q ACHS [facility]; Protocol Last Admin: 11/10/20 21:40 Dose: Not Given Documented by: Losartan Potassium (Losartan 50 Mg Tab) 50 mg PO QDAY [facility] Last Admin: 11/10/20 12:19 Dose: 50 mg Documented by: Metformin HCl (Metformin 500 Mg Tab) 500 mg PO BIDDIAB [facility] Last Admin: 11/10/20 17:26 Dose: 500 mg Documented by: Risperidone (Risperidone 1 Mg Tab) 2 mg PO BID [facility] Last Admin: 11/10/20 21:39 Dose: 2 mg Documented by: Trazodone HCl (Trazodone 50 Mg Tab) 50 mg PO QHS [facility] Last Admin: 11/10/20 21:39 Dose: 50 mg Documented by: Results - Results Labs/Vitals: Laboratory Last Values POC Glucose 113 mg/dL (70-105) H 11/11/20 06:21 Hemoglobin A1c 6.9 % (4-6) H 11/08/20 08:41 Magnesium 1.90 mg/dL (1.7-2.3) 11/08/20 08:41 Triglycerides 83 mg/dL (2-149) 11/08/20 08:41 Cholesterol 133 mg/dL (50-199) 11/08/20 08:41 LDL Cholesterol Direct 86 mg/dL (50-130) 11/08/20 08:41 HDL Cholesterol 45 mg/dL (40-59) 11/08/20 08:41 Cholesterol/HDL Ratio 2.95 % 11/08/20 08:41 TSH 2.290 mlU/mL (0.270-4.200) 11/08/20 08:41 Last Vital Signs Temp 98.1 F 11/10/20 19:00 Pulse 77 11/10/20 19:00 Resp 16 11/10/20 19:00 BP 178/80 11/10/20 19:00 Pulse Ox 97 11/10/20 19:00
[2020-11-11] MEDS: OMEGA-3 FATTY ACIDS/FISH OIL 1 GRAM CAP PO SCH ×2 (09:57→21:35)
[2020-11-11] MEDS: metFORMIN 500 MG TAB PO SCH ×2 (09:57→16:43)
[2020-11-11] MEDS: LOSARTAN 50 MG TAB PO SCH (09:58)
[2020-11-11] MEDS: risperiDONE 1 MG TAB PO SCH ×2 (09:58→21:35)
[2020-11-11] MEDS: INSULIN LISPRO 100 UNIT/ML SUB-Q SCH ×5 (09:59→21:39)
[2020-11-11] MEDS ORDERED: PALIPERIDONE PALMITATE 234 MG/1.5 ML SYRINGE IM ONE (10:00)
[2020-11-11] MEDS: traZODone 50 MG TAB PO SCH (21:35)
[2020-11-12] MEDS: INSULIN LISPRO 100 UNIT/ML SUB-Q SCH ×4 (07:46→21:29)
--- NOTE | 2020-11-12 09:32 | Progress Note ---
Subjective Date of service: 11/12/20 Principal diagnosis: schizophrenia Subjective Comment: During my interview with the patient today. She is a/o x 3. She is sitting in the dayroom. She is calm, cooperative and pleasant. She says she had a "very good night." She denies SI/HI or hallucinations of any kind. Reason for continued inpatient treatment: The patient had failed outpatient treatment due to her noncompliance with monthly injections. Invega Sustenna given. Will give second injection in a few days. Will monitor for effectiveness and side effects. REVIEW OF SYSTEMS Constitutional: Negative for weight loss ENT: Negative for stridor Respiratory: Negative for cough or hemoptysis All other systems reviewed and are negative MENTAL STATUS EXAMINATION General Appearance and Behavior: Age appropriate, fair hygiene, not wearing appropriate clothes, good eye contact, uncooperative and irritable Cooperation: Withdrawn Psychomotor Behavior: Psychomotor agitation Mood: "okay" Affect and affective range: congruent with stated mood Thought Process: goal oriented Thought Content: Illogical Speech: Normal tone and pace Intellectual Functioning: Average Suicidal Ideation: Denies SI Homicidal Ideation: "not yet" Impulse Control: Impaired Insight and Judgment: Limited insight and judgment Memory: Impaired Attention: Divided attention impaired Orientation: Alert, oriented, Assessment and Plan (1) Paranoid schizophrenia (F20.0) Current Visit: No Status: Chronic Treatment Plan Patient admitted for inpatient psychiatric evaluation, medication adjustment and close monitoring The patient's behavior, mood, sleep and appetite will be closely monitored. Patient enrolled in individual and group therapeutic sessions and encouraged to attend. Patient provided with a safe and structured environment. Patient's physical health needs will be addressed by the Hospitalist. Hospitalist Consulted Labs including CBC, CMP, Lipid profile and Hemoglobin A1C levels ordered for baseline reference Social Assessment will be completed and the Tape Sewing Machine Operator will work with patient and family to ensure a suitable and safe disposition Medication adjustment will be made as clinically indicated No changes made today Usual Wellness Judaism/Preservation: - Start Trazodone 50 mg po QHS & 50 mg po QHS PRN between 10 PM & 2 AM for insomnia - Start Melatonin 5 mg po QHS to promote circadian rhythm - Start [place]-3 for brain health, reduce impulsivity, and as adjunctive treatment for mood disorder, continue upon discharge given overall benefits. - Start B1 prophylaxis with 200 mg po for 5 days The patient agreed on the treatment plan, understood the risk, benefit, alternative treatment, potential consequence of no treatment, and gave informed consent. Estimated days: 5 Post hospital care: primary care provider, psychiatric provider Medications and Allergies Allergies Allergy/AdvReac Type Severity Reaction Status Date / Time No Known Allergies Allergy Verified 01/19/19 11:38 Home Medications Medication Instructions Recorded Confirmed Last Taken Type metFORMIN [Glucophage] 500 mg PO BID 04/06/15 11/08/20 3 Days Ago History ~08/11/20 Losartan Potassium 50 mg PO DAILY 01/19/19 11/08/20 3 Days Ago History ~08/11/20 Lispro Insulin [HumaLOG] 0 unit SUB-Q ACHS units 01/25/19 11/08/20 3 Days Ago Rx ~08/11/20 risperiDONE [RisperDAL] 2 mg PO QAM #60 tablet 01/25/19 11/08/20 3 Days Ago Rx ~08/11/20 risperiDONE [RisperDAL] 3 mg PO QHS #30 tablet 01/25/19 11/08/20 1 Day Ago Rx ~08/13/20 traZODone [Desyrel] 50 mg PO QHS PRN #30 tablet 01/25/19 11/08/20 3 Days Ago Rx ~08/11/20 Active Meds: Active Medications Fish Oil ([place]ella-3 Fatty Acids/Fish Oil 1 Gram Cap) 2,000 mg PO BID [facility] Last Admin: 11/11/20 21:35 Dose: 2,000 mg Documented by: Insulin Human Lispro (Insulin Lispro 100 Unit/Ml) 0 unit SUB-Q ACHS [facility]; Protocol Last Admin: 11/12/20 07:46 Dose: Not Given Documented by: Losartan Potassium (Losartan 50 Mg Tab) 50 mg PO QDAY [facility] Last Admin: 11/11/20 09:58 Dose: 50 mg Documented by: Metformin HCl (Metformin 500 Mg Tab) 500 mg PO BIDDIAB [facility] Last Admin: 11/11/20 16:43 Dose: 500 mg Documented by: Risperidone (Risperidone 1 Mg Tab) 1 mg PO BID [facility] Last Admin: 11/11/20 21:35 Dose: 1 mg Documented by: Trazodone HCl (Trazodone 50 Mg Tab) 50 mg PO QHS [facility] Last Admin: 11/11/20 21:35 Dose: 50 mg Documented by: Results - Results Labs/Vitals: Laboratory Last Values POC Glucose 150 mg/dL (70-105) H 11/11/20 19:16 Hemoglobin A1c 6.9 % (4-6) H 11/08/20 08:41 Magnesium 1.90 mg/dL (1.7-2.3) 11/08/20 08:41 Triglycerides 83 mg/dL (2-149) 11/08/20 08:41 Cholesterol 133 mg/dL (50-199) 11/08/20 08:41 LDL Cholesterol Direct 86 mg/dL (50-130) 11/08/20 08:41 HDL Cholesterol 45 mg/dL (40-59) 11/08/20 08:41 Cholesterol/HDL Ratio 2.95 % 11/08/20 08:41 TSH 2.290 mlU/mL (0.270-4.200) 11/08/20 08:41 Last Vital Signs Temp 99.1 F 11/11/20 19:00 Pulse 84 11/11/20 19:00 Resp 16 11/11/20 19:00 BP 140/71 11/11/20 19:00 Pulse Ox 96 11/11/20 19:00
[2020-11-12] MEDS: risperiDONE 1 MG TAB PO SCH ×2 (09:51→21:28)
[2020-11-12] MEDS: metFORMIN 500 MG TAB PO SCH ×2 (09:51→17:36)
[2020-11-12] MEDS: OMEGA-3 FATTY ACIDS/FISH OIL 1 GRAM CAP PO SCH ×2 (09:51→21:28)
[2020-11-12] MEDS: LOSARTAN 50 MG TAB PO SCH (09:52)
[2020-11-12] MEDS: traZODone 50 MG TAB PO SCH (21:28)
[2020-11-13] MEDS: INSULIN LISPRO 100 UNIT/ML SUB-Q SCH ×4 (08:03→21:13)
[2020-11-13] MEDS: metFORMIN 500 MG TAB PO SCH ×2 (08:04→17:09)
--- NOTE | 2020-11-13 08:45 | Progress Note ---
Subjective Date of service: 11/13/20 Principal diagnosis: schizophrenia Subjective Comment: During my interview with the patient today. She is a/o x 3. She is sitting in the dayroom. She is calm, cooperative and pleasant. He asked me about her discharge date. Explained to the patient we wanted to monitor her after her injections to make sure it was effective with no SE. The patient verbalized agreement and understanding. She denies SI/HI or hallucinations of any kind. Reason for continued inpatient treatment: The patient had failed outpatient treatment due to her noncompliance with monthly injections. Invega Sustenna given. Will give second injection in a few days. Will monitor for effectiveness and side effects. REVIEW OF SYSTEMS Constitutional: Negative for weight loss ENT: Negative for stridor Respiratory: Negative for cough or hemoptysis All other systems reviewed and are negative MENTAL STATUS EXAMINATION General Appearance and Behavior: Age appropriate, fair hygiene, not wearing appropriate clothes, good eye contact, cooperative and calm Cooperation: Withdrawn Psychomotor Behavior: calm Mood: "good" Affect and affective range: congruent with stated mood Thought Process: goal oriented Thought Content: none Speech: Normal tone and pace Intellectual Functioning: Average Suicidal Ideation: Denies Homicidal Ideation: Denies Impulse Control: Impaired Insight and Judgment: Limited insight and judgment Memory: Limited Attention: Normal Orientation: Alert, oriented Assessment and Plan (1) Paranoid schizophrenia (F20.0) Current Visit: No Status: Chronic Treatment Plan Patient admitted for inpatient psychiatric evaluation, medication adjustment and close monitoring The patient's behavior, mood, sleep and appetite will be closely monitored. Patient enrolled in individual and group therapeutic sessions and encouraged to attend. Patient provided with a safe and structured environment. Patient's physical health needs will be addressed by the Hospitalist. Hospitalist Consulted Labs including CBC, CMP, Lipid profile and Hemoglobin A1C levels ordered for baseline reference Social Assessment will be completed and the Supervisor Pipeline Maintenance will work with patient and family to ensure a suitable and safe disposition Medication adjustment will be made as clinically indicated No changes made today Next Invega injection Thursday Usual Wellness Catholic/Preservation: - Start Trazodone 50 mg po QHS & 50 mg po QHS PRN between 10 PM & 2 AM for insomnia - Start Melatonin 5 mg po QHS to promote circadian rhythm - Start [place]-3 for brain health, reduce impulsivity, and as adjunctive treatment for mood disorder, continue upon discharge given overall benefits. - Start B1 prophylaxis with 200 mg po for 5 days The patient agreed on the treatment plan, understood the risk, benefit, alternative treatment, potential consequence of no treatment, and gave informed consent. Estimated days: 5 Post hospital care: primary care provider, psychiatric provider Medications and Allergies Allergies Allergy/AdvReac Type Severity Reaction Status Date / Time No Known Allergies Allergy Verified 01/19/19 11:38 Home Medications Medication Instructions Recorded Confirmed Last Taken Type metFORMIN [Glucophage] 500 mg PO BID 04/06/15 11/08/20 3 Days Ago History ~08/11/20 Losartan Potassium 50 mg PO DAILY 01/19/19 11/08/20 3 Days Ago History ~08/11/20 Lispro Insulin [HumaLOG] 0 unit SUB-Q ACHS units 01/25/19 11/08/20 3 Days Ago Rx ~08/11/20 risperiDONE [RisperDAL] 2 mg PO QAM #60 tablet 01/25/19 11/08/20 3 Days Ago Rx ~08/11/20 risperiDONE [RisperDAL] 3 mg PO QHS #30 tablet 01/25/19 11/08/20 1 Day Ago Rx ~08/13/20 traZODone [Desyrel] 50 mg PO QHS PRN #30 tablet 01/25/19 11/08/20 3 Days Ago Rx ~08/11/20 Active Meds: Active Medications Fish Oil ([place]-3 Fatty Acids/Fish Oil 1 Gram Cap) 2,000 mg PO BID [facility] Last Admin: 11/12/20 21:28 Dose: 2,000 mg Documented by: Insulin Human Lispro (Insulin Lispro 100 Unit/Ml) 0 unit SUB-Q ACHS [facility]; Protocol Last Admin: 11/13/20 08:03 Dose: Not Given Documented by: Losartan Potassium (Losartan 50 Mg Tab) 50 mg PO QDAY [facility] Last Admin: 11/12/20 09:52 Dose: 50 mg Documented by: Metformin HCl (Metformin 500 Mg Tab) 500 mg PO BIDDIAB [facility] Last Admin: 11/13/20 08:04 Dose: 500 mg Documented by: Risperidone (Risperidone 1 Mg Tab) 1 mg PO BID [facility] Last Admin: 11/12/20 21:28 Dose: 1 mg Documented by: Trazodone HCl (Trazodone 50 Mg Tab) 50 mg PO QHS [facility] Last Admin: 11/12/20 21:28 Dose: 50 mg Documented by: Results - Results Labs/Vitals: Laboratory Last Values POC Glucose 158 mg/dL (70-105) H 11/12/20 16:01 Hemoglobin A1c 6.9 % (4-6) H 11/08/20 08:41 Magnesium 1.90 mg/dL (1.7-2.3) 11/08/20 08:41 Triglycerides 83 mg/dL (2-149) 11/08/20 08:41 Cholesterol 133 mg/dL (50-199) 11/08/20 08:41 LDL Cholesterol Direct 86 mg/dL (50-130) 11/08/20 08:41 HDL Cholesterol 45 mg/dL (40-59) 11/08/20 08:41 Cholesterol/HDL Ratio 2.95 % 11/08/20 08:41 TSH 2.290 mlU/mL (0.270-4.200) 11/08/20 08:41 Last Vital Signs Temp 98.0 F 11/12/20 20:01 Pulse 83 11/12/20 20:01 Resp 20 11/12/20 20:01 BP 108/75 11/12/20 20:01 Pulse Ox 98 11/12/20 20:01
[2020-11-13] MEDS: LOSARTAN 50 MG TAB PO SCH (09:24)
[2020-11-13] MEDS: OMEGA-3 FATTY ACIDS/FISH OIL 1 GRAM CAP PO SCH ×2 (09:25→21:12)
[2020-11-13] MEDS: risperiDONE 1 MG TAB PO SCH ×2 (09:25→21:12)
[2020-11-13] MEDS: traZODone 50 MG TAB PO SCH (21:12)
[2020-11-14] MEDS: INSULIN LISPRO 100 UNIT/ML SUB-Q SCH ×4 (07:30→21:17)
--- NOTE | 2020-11-14 08:39 | Progress Note ---
Subjective Date of service: 11/14/20 Principal diagnosis: schizophrenia Subjective Comment: During my interview with the patient today. She is a/o x 3. She is sitting in the dayroom. She is calm, cooperative and pleasant. She denies SI/HI. She also denies hallucinations of any kind. Reason for continued inpatient treatment: The patient has improved significantly during her stay. She had failed outpatient treatment due to her noncompliance with monthly injections. Invega Sustenna given. Will give second injection Thursday. Will monitor for effectiveness and side effects and plan for a safe discharge Thursday. REVIEW OF SYSTEMS Constitutional: Negative for weight loss ENT: Negative for stridor Respiratory: Negative for cough or hemoptysis All other systems reviewed and are negative MENTAL STATUS EXAMINATION General Appearance and Behavior: Age appropriate, fair hygiene, not wearing appropriate clothes, good eye contact, cooperative and calm Cooperation: Withdrawn Psychomotor Behavior: calm Mood: "good" Affect and affective range: congruent with stated mood Thought Process: goal oriented Thought Content: none Speech: Normal tone and pace Intellectual Functioning: Average Suicidal Ideation: Denies Homicidal Ideation: Denies Impulse Control: Impaired Insight and Judgment: Limited insight and judgment Memory: Limited Attention: Normal Orientation: Alert, oriented Assessment and Plan (1) Paranoid schizophrenia (F20.0) Current Visit: No Status: Chronic Treatment Plan Patient admitted for inpatient psychiatric evaluation, medication adjustment and close monitoring The patient's behavior, mood, sleep and appetite will be closely monitored. Patient enrolled in individual and group therapeutic sessions and encouraged to attend. Patient provided with a safe and structured environment. Patient's physical health needs will be addressed by the Hospitalist. Hospitalist Consulted Labs including CBC, CMP, Lipid profile and Hemoglobin A1C levels ordered for baseline reference Social Assessment will be completed and the Orientation & Mobility Specialist will work with patient and family to ensure a suitable and safe disposition Medication adjustment will be made as clinically indicated Second Invega injection ordered 11/17/20 Usual Wellness Episcopalian/Preservation: - Start Trazodone 50 mg po QHS & 50 mg po QHS PRN between 10 PM & 2 AM for insomnia - Start Melatonin 5 mg po QHS to promote circadian rhythm - Start [place]-3 for brain health, reduce impulsivity, and as adjunctive treatment for mood disorder, continue upon discharge given overall benefits. - Start B1 prophylaxis with 200 mg po for 5 days The patient agreed on the treatment plan, understood the risk, benefit, alternative treatment, potential consequence of no treatment, and gave informed consent. Estimated days: 5 Post hospital care: primary care provider, psychiatric provider Medications and Allergies Allergies Allergy/AdvReac Type Severity Reaction Status Date / Time No Known Allergies Allergy Verified 01/19/19 11:38 Home Medications Medication Instructions Recorded Confirmed Last Taken Type metFORMIN [Glucophage] 500 mg PO BID 04/06/15 11/08/20 3 Days Ago History ~08/11/20 Losartan Potassium 50 mg PO DAILY 01/19/19 11/08/20 3 Days Ago History ~08/11/20 Lispro Insulin [HumaLOG] 0 unit SUB-Q ACHS units 01/25/19 11/08/20 3 Days Ago Rx ~08/11/20 risperiDONE [RisperDAL] 2 mg PO QAM #60 tablet 01/25/19 11/08/20 3 Days Ago Rx ~08/11/20 risperiDONE [RisperDAL] 3 mg PO QHS #30 tablet 01/25/19 11/08/20 1 Day Ago Rx ~08/13/20 traZODone [Desyrel] 50 mg PO QHS PRN #30 tablet 01/25/19 11/08/20 3 Days Ago Rx ~08/11/20 Active Meds: Active Medications Fish Oil ([place]-3 Fatty Acids/Fish Oil 1 Gram Cap) 2,000 mg PO BID [facility] Last Admin: 11/13/20 21:12 Dose: 2,000 mg Documented by: Insulin Human Lispro (Insulin Lispro 100 Unit/Ml) 0 unit SUB-Q ACHS [facility]; Protocol Last Admin: 11/13/20 21:13 Dose: Not Given Documented by: Losartan Potassium (Losartan 50 Mg Tab) 50 mg PO QDAY [facility] Last Admin: 11/13/20 09:24 Dose: 50 mg Documented by: Metformin HCl (Metformin 500 Mg Tab) 500 mg PO BIDDIAB [facility] Last Admin: 11/13/20 17:09 Dose: 500 mg Documented by: Risperidone (Risperidone 1 Mg Tab) 1 mg PO BID [facility] Last Admin: 11/13/20 21:12 Dose: 1 mg Documented by: Trazodone HCl (Trazodone 50 Mg Tab) 50 mg PO QHS [facility] Last Admin: 11/13/20 21:12 Dose: 50 mg Documented by: Results - Results Labs/Vitals: Laboratory Last Values POC Glucose 147 mg/dL (70-105) H 11/13/20 19:21 Hemoglobin A1c 6.9 % (4-6) H 11/08/20 08:41 Magnesium 1.90 mg/dL (1.7-2.3) 11/08/20 08:41 Triglycerides 83 mg/dL (2-149) 11/08/20 08:41 Cholesterol 133 mg/dL (50-199) 11/08/20 08:41 LDL Cholesterol Direct 86 mg/dL (50-130) 11/08/20 08:41 HDL Cholesterol 45 mg/dL (40-59) 11/08/20 08:41 Cholesterol/HDL Ratio 2.95 % 11/08/20 08:41 TSH 2.290 mlU/mL (0.270-4.200) 11/08/20 08:41 Last Vital Signs Temp 99.1 F 11/13/20 19:00 Pulse 82 11/13/20 19:00 Resp 16 11/13/20 19:00 BP 151/75 11/13/20 19:00 Pulse Ox 99 11/13/20 08:31
[2020-11-14] MEDS: OMEGA-3 FATTY ACIDS/FISH OIL 1 GRAM CAP PO SCH ×2 (10:36→21:16)
[2020-11-14] MEDS: metFORMIN 500 MG TAB PO SCH ×2 (10:36→17:30)
[2020-11-14] MEDS: risperiDONE 0.25 MG TAB PO SCH ×2 (10:36→21:16)
[2020-11-14] MEDS: LOSARTAN 50 MG TAB PO SCH (10:36)
[2020-11-14] MEDS: traZODone 50 MG TAB PO SCH (21:16)
--- NOTE | 2020-11-15 08:24 | Progress Note ---
Subjective Date of service: 11/15/20 Principal diagnosis: schizophrenia Subjective Comment: During my interview with the patient today. She is a/o x 3. She is sitting in the dayroom. She is calm, cooperative and pleasant. She does get upset about not getting another cup of coffee, and starts talking loudly at one of the other patients. The patient was easily redirected and told her coffee was on the way. She denies SI/HI. She also denies hallucinations of any kind. Reason for continued inpatient treatment: The patient has improved significantly during her stay. She had failed outpatient treatment due to her noncompliance with monthly injections. Invega Sustenna given. Will give second injection Thursday. Will monitor for effectiveness and side effects and plan for a safe discharge Thursday. REVIEW OF SYSTEMS Constitutional: Negative for weight loss ENT: Negative for stridor Respiratory: Negative for cough or hemoptysis All other systems reviewed and are negative MENTAL STATUS EXAMINATION General Appearance and Behavior: Age appropriate, fair hygiene, not wearing appropriate clothes, good eye contact, cooperative and calm Cooperation: Withdrawn Psychomotor Behavior: calm Mood: "good" Affect and affective range: congruent with stated mood Thought Process: goal oriented Thought Content: none Speech: Normal tone and pace Intellectual Functioning: Average Suicidal Ideation: Denies Homicidal Ideation: Denies Impulse Control: Impaired Insight and Judgment: Limited insight and judgment Memory: Limited Attention: Normal Orientation: Alert, oriented Assessment and Plan (1) Paranoid schizophrenia (F20.0) Current Visit: No Status: Chronic Treatment Plan Patient admitted for inpatient psychiatric evaluation, medication adjustment and close monitoring The patient's behavior, mood, sleep and appetite will be closely monitored. Patient enrolled in individual and group therapeutic sessions and encouraged to attend. Patient provided with a safe and structured environment. Patient's physical health needs will be addressed by the Hospitalist. Hospitalist Consulted Labs including CBC, CMP, Lipid profile and Hemoglobin A1C levels ordered for baseline reference Social Assessment will be completed and the Senior Bookkeeper will work with patient and family to ensure a suitable and safe disposition Medication adjustment will be made as clinically indicated Second Invega injection ordered 11/17/20 Usual Wellness Pentecostalism/Preservation: - Start Trazodone 50 mg po QHS & 50 mg po QHS PRN between 10 PM & 2 AM for insomnia - Start Melatonin 5 mg po QHS to promote circadian rhythm - Start [place]-3 for brain health, reduce impulsivity, and as adjunctive treatment for mood disorder, continue upon discharge given overall benefits. - Start B1 prophylaxis with 200 mg po for 5 days The patient agreed on the treatment plan, understood the risk, benefit, alternative treatment, potential consequence of no treatment, and gave informed consent. Estimated days: 4 Post hospital care: primary care provider, psychiatric provider Medications and Allergies Allergies Allergy/AdvReac Type Severity Reaction Status Date / Time No Known Allergies Allergy Verified 01/19/19 11:38 Home Medications Medication Instructions Recorded Confirmed Last Taken Type metFORMIN [Glucophage] 500 mg PO BID 04/06/15 11/08/20 3 Days Ago History ~08/11/20 Losartan Potassium 50 mg PO DAILY 01/19/19 11/08/20 3 Days Ago History ~08/11/20 Lispro Insulin [HumaLOG] 0 unit SUB-Q ACHS units 01/25/19 11/08/20 3 Days Ago Rx ~08/11/20 risperiDONE [RisperDAL] 2 mg PO QAM #60 tablet 01/25/19 11/08/20 3 Days Ago Rx ~08/11/20 risperiDONE [RisperDAL] 3 mg PO QHS #30 tablet 01/25/19 11/08/20 1 Day Ago Rx ~08/13/20 traZODone [Desyrel] 50 mg PO QHS PRN #30 tablet 01/25/19 11/08/20 3 Days Ago Rx ~08/11/20 Active Meds: Active Medications Fish Oil ([place]-3 Fatty Acids/Fish Oil 1 Gram Cap) 2,000 mg PO BID [facility] Last Admin: 11/14/20 21:16 Dose: 2,000 mg Documented by: Insulin Human Lispro (Insulin Lispro 100 Unit/Ml) 0 unit SUB-Q ACHS [facility]; Protocol Last Admin: 11/14/20 21:17 Dose: Not Given Documented by: Losartan Potassium (Losartan 50 Mg Tab) 50 mg PO QDAY [facility] Last Admin: 11/14/20 10:36 Dose: 50 mg Documented by: Metformin HCl (Metformin 500 Mg Tab) 500 mg PO BIDDIAB [facility] Last Admin: 11/14/20 17:30 Dose: 500 mg Documented by: Risperidone (Risperidone 0.25 Mg Tab) 0.5 mg PO BID [facility] Last Admin: 11/14/20 21:16 Dose: 0.5 mg Documented by: Trazodone HCl (Trazodone 50 Mg Tab) 50 mg PO QHS [facility] Last Admin: 11/14/20 21:16 Dose: 50 mg Documented by: Results - Results Labs/Vitals: Laboratory Last Values POC Glucose 111 mg/dL (70-105) H 11/15/20 08:00 Hemoglobin A1c 6.9 % (4-6) H 11/08/20 08:41 Magnesium 1.90 mg/dL (1.7-2.3) 11/08/20 08:41 Triglycerides 83 mg/dL (2-149) 11/08/20 08:41 Cholesterol 133 mg/dL (50-199) 11/08/20 08:41 LDL Cholesterol Direct 86 mg/dL (50-130) 11/08/20 08:41 HDL Cholesterol 45 mg/dL (40-59) 11/08/20 08:41 Cholesterol/HDL Ratio 2.95 % 11/08/20 08:41 TSH 2.290 mlU/mL (0.270-4.200) 11/08/20 08:41 Last Vital Signs Temp 98.6 F 11/14/20 22:00 Pulse 82 11/14/20 22:00 Resp 18 11/14/20 22:00 BP 155/74 11/14/20 22:00 Pulse Ox 96 11/14/20 22:00
[2020-11-15] MEDS: metFORMIN 500 MG TAB PO SCH ×2 (10:19→17:11)
[2020-11-15] MEDS: OMEGA-3 FATTY ACIDS/FISH OIL 1 GRAM CAP PO SCH ×2 (10:19→21:18)
[2020-11-15] MEDS: risperiDONE 0.25 MG TAB PO SCH ×2 (10:19→21:18)
[2020-11-15] MEDS: INSULIN LISPRO 100 UNIT/ML SUB-Q SCH ×4 (10:20→21:19)
[2020-11-15] MEDS: LOSARTAN 50 MG TAB PO SCH (10:21)
[2020-11-15] MEDS: traZODone 50 MG TAB PO SCH (21:17)
[2020-11-16] MEDS: INSULIN LISPRO 100 UNIT/ML SUB-Q SCH ×4 (07:30→21:02)
[2020-11-16] MEDS: risperiDONE 0.25 MG TAB PO SCH (10:12)
[2020-11-16] MEDS: OMEGA-3 FATTY ACIDS/FISH OIL 1 GRAM CAP PO SCH ×2 (10:12→21:01)
[2020-11-16] MEDS: metFORMIN 500 MG TAB PO SCH ×2 (10:12→16:42)
[2020-11-16] MEDS: LOSARTAN 50 MG TAB PO SCH (10:16)
--- NOTE | 2020-11-16 12:17 | Progress Note ---
Subjective Date of service: 11/16/20 Principal diagnosis: schizophrenia Subjective Comment: Psych Nurse: 0845 Received pt resting in bed at 0656 with eyes closed, arouse- able. She went to activity room and had breakfast. After breakfast, pt sat there and move her bowels all over the place. She took off her gown and stood naked in the activity room and was playing with her stools. This staff gave her a clean a gown to the patient, in attempt to assist her, she was hash, yelling and refused help. Also she refused to be directed to her room to get a shower. She sat back on the chair with her soled clothes, but she finally agreed to go to her room. Upon getting to her room she went and laid down with the soled clothes and socks and yelling at staff to leave her room. Will continue to monitor. Psych progress Patient seen in room today, patient appears confused, but engaged and cooperative, smiley. Patient says she is trying to organize her room and requests for new socks for her feet, says her old one is dirty. reason for continued inpatient treatment: Second Invega injection ordered 11/17/20, dose increased to 234mg REVIEW OF SYSTEMS Constitutional: Negative for weight loss ENT: Negative for stridor Respiratory: Negative for cough or hemoptysis All other systems reviewed and are negative MENTAL STATUS EXAMINATION General Appearance and Behavior: Age appropriate, fair hygiene, not wearing appropriate clothes, good eye contact, cooperative and calm Cooperation: Withdrawn Psychomotor Behavior: calm Mood: "good" Affect and affective range: congruent with stated mood Thought Process: goal oriented Thought Content: none Speech: Normal tone and pace Intellectual Functioning: Average Suicidal Ideation: Denies Homicidal Ideation: Denies Impulse Control: Impaired Insight and Judgment: Limited insight and judgment Memory: Limited Attention: Normal Orientation: Alert, oriented Assessment and Plan (1) Paranoid schizophrenia (F20.0) Current Visit: No Status: Chronic Treatment Plan Patient admitted for inpatient psychiatric evaluation, medication adjustment and close monitoring The patient's behavior, mood, sleep and appetite will be closely monitored. Patient enrolled in individual and group therapeutic sessions and encouraged to attend. Patient provided with a safe and structured environment. Patient's physical health needs will be addressed by the Hospitalist. Hospitalist Consulted Labs including CBC, CMP, Lipid profile and Hemoglobin A1C levels ordered for baseline reference Social Assessment will be completed and the Toppiece Chopper will work with patient and family to ensure a suitable and safe disposition Medication adjustment will be made as clinically indicated Second Invega injection ordered 11/17/20 Usual Wellness Hinduism/Preservation: - Start Trazodone 50 mg po QHS & 50 mg po QHS PRN between 10 PM & 2 AM for insomnia - Start Melatonin 5 mg po QHS to promote circadian rhythm - Start [place]-3 for brain health, reduce impulsivity, and as adjunctive treatment for mood disorder, continue upon discharge given overall benefits. - Start B1 prophylaxis with 200 mg po for 5 days The patient agreed on the treatment plan, understood the risk, benefit, alternative treatment, potential consequence of no treatment, and gave informed consent. Estimated days: 4 Post hospital care: primary care provider, psychiatric provider Medications and Allergies Allergies Allergy/AdvReac Type Severity Reaction Status Date / Time No Known Allergies Allergy Verified 01/19/19 11:38 Home Medications Medication Instructions Recorded Confirmed Last Taken Type RX: metFORMIN [Glucophage] 500 mg PO BID 04/06/15 11/08/20 3 Days Ago History ~08/11/20 Losartan Potassium 50 mg PO DAILY 01/19/19 11/08/20 3 Days Ago History ~08/11/20 RX: Lispro Insulin [HumaLOG] 0 unit SUB-Q ACHS units 01/25/19 11/08/20 3 Days Ago Rx ~08/11/20 RX: risperiDONE [RisperDAL] 2 mg PO QAM #60 tablet 01/25/19 11/08/20 3 Days Ago Rx ~08/11/20 RX: risperiDONE [RisperDAL] 3 mg PO QHS #30 tablet 01/25/19 11/08/20 1 Day Ago Rx ~08/13/20 RX: traZODone [Desyrel] 50 mg PO QHS PRN #30 tablet 01/25/19 11/08/20 3 Days Ago Rx ~08/11/20 Active Meds: Active Medications Fish Oil ([place]-3 Fatty Acids/Fish Oil 1 Gram Cap) 2,000 mg PO BID [facility] Last Admin: 11/16/20 10:12 Dose: 2,000 mg Documented by: Insulin Human Lispro (Insulin Lispro 100 Unit/Ml) 0 unit SUB-Q ACHS [facility]; Protocol Last Admin: 11/16/20 07:30 Dose: Not Given Documented by: Losartan Potassium (Losartan 50 Mg Tab) 50 mg PO QDAY [facility] Last Admin: 11/16/20 10:16 Dose: 50 mg Documented by: Metformin HCl (Metformin 500 Mg Tab) 500 mg PO BIDDIAB [facility] Last Admin: 11/16/20 10:12 Dose: 500 mg Documented by: Risperidone (Risperidone 0.25 Mg Tab) 0.5 mg PO BID [facility] Last Admin: 11/16/20 10:12 Dose: 0.5 mg Documented by: Trazodone HCl (Trazodone 50 Mg Tab) 50 mg PO QHS [facility] Last Admin: 11/15/20 21:17 Dose: 50 mg Documented by: Results - Results Labs/Vitals: Laboratory Last Values POC Glucose 114 mg/dL (70-105) H 11/16/20 07:36 Hemoglobin A1c 6.9 % (4-6) H 11/08/20 08:41 Magnesium 1.90 mg/dL (1.7-2.3) 11/08/20 08:41 Triglycerides 83 mg/dL (2-149) 11/08/20 08:41 Cholesterol 133 mg/dL (50-199) 11/08/20 08:41 LDL Cholesterol Direct 86 mg/dL (50-130) 11/08/20 08:41 HDL Cholesterol 45 mg/dL (40-59) 11/08/20 08:41 Cholesterol/HDL Ratio 2.95 % 11/08/20 08:41 TSH 2.290 mlU/mL (0.270-4.200) 11/08/20 08:41 Last Vital Signs Temp 98.0 F 11/16/20 07:50 Pulse 73 11/16/20 10:16 Resp 20 11/16/20 07:50 BP 132/78 11/16/20 10:16 Pulse Ox 96 11/16/20 07:50
[2020-11-16] MEDS: VALPROIC ACID 250 MG/5 ML ORAL LIQD PO SCH (21:02)
[2020-11-17] MEDS: INSULIN LISPRO 100 UNIT/ML SUB-Q SCH ×4 (07:49→21:04)
[2020-11-17] MEDS ORDERED: PALIPERIDONE PALMITATE 156 MG/ML INJ IM SCH ×3 (09:00)
[2020-11-17] MEDS: OMEGA-3 FATTY ACIDS/FISH OIL 1 GRAM CAP PO SCH ×2 (09:10→21:03)
[2020-11-17] MEDS: VALPROIC ACID 250 MG/5 ML ORAL LIQD PO SCH ×2 (09:10→21:03)
[2020-11-17] MEDS: metFORMIN 500 MG TAB PO SCH ×2 (09:11→16:46)
[2020-11-17] MEDS: LOSARTAN 50 MG TAB PO SCH (09:11)
--- NOTE | 2020-11-17 09:16 | Progress Note ---
Subjective Date of service: 11/17/20 Principal diagnosis: schizophrenia Subjective Comment: Psych Nurse: pt spent last evening in bed, came to the activity room for snack, appropriate this shift, pt is compliant with treatment regime, presents as sleeping for appropriately 8hrs plus, no distress noted, will continue to monitor for safety. Psych progress Patient seen this a.m. in the bed, patient reports sleeping well, when asked what she is looking up to doing today patient states she is looking forward to eat and laughs. reason for continued inpatient treatment: Second Invega injection ordered 11/17/20, dose increased to 234mg REVIEW OF SYSTEMS Constitutional: Negative for weight loss ENT: Negative for stridor Respiratory: Negative for cough or hemoptysis All other systems reviewed and are negative MENTAL STATUS EXAMINATION General Appearance and Behavior: Age appropriate, fair hygiene, not wearing appropriate clothes, good eye contact, cooperative and calm Cooperation: Withdrawn Psychomotor Behavior: calm Mood: "good" Affect and affective range: congruent with stated mood Thought Process: goal oriented Thought Content: none Speech: Normal tone and pace Intellectual Functioning: Average Suicidal Ideation: Denies Homicidal Ideation: Denies Impulse Control: Impaired Insight and Judgment: Limited insight and judgment Memory: Limited Attention: Normal Orientation: Alert, oriented Assessment and Plan (1) Paranoid schizophrenia (F20.0) Current Visit: No Status: Chronic Treatment Plan Patient admitted for inpatient psychiatric evaluation, medication adjustment and close monitoring The patient's behavior, mood, sleep and appetite will be closely monitored. Patient enrolled in individual and group therapeutic sessions and encouraged to attend. Patient provided with a safe and structured environment. Patient's physical health needs will be addressed by the Hospitalist. Hospitalist Consulted Labs including CBC, CMP, Lipid profile and Hemoglobin A1C levels ordered for baseline reference Social Assessment will be completed and the Straightening Press Operator Helper will work with patient and family to ensure a suitable and safe disposition Medication adjustment will be made as clinically indicated Second Invega injection ordered 11/17/20 Usual Wellness Muslim/Preservation: - Start Trazodone 50 mg po QHS & 50 mg po QHS PRN between 10 PM & 2 AM for insomnia - Start Melatonin 5 mg po QHS to promote circadian rhythm - Start [place]-3 for brain health, reduce impulsivity, and as adjunctive treatment for mood disorder, continue upon discharge given overall benefits. - Start B1 prophylaxis with 200 mg po for 5 days The patient agreed on the treatment plan, understood the risk, benefit, alternative treatment, potential consequence of no treatment, and gave informed consent. Estimated days: 2 Post hospital care: primary care provider, psychiatric provider Medications and Allergies Allergies Allergy/AdvReac Type Severity Reaction Status Date / Time No Known Allergies Allergy Verified 01/19/19 11:38 Home Medications Medication Instructions Recorded Confirmed Last Taken Type metFORMIN [Glucophage] 500 mg PO BID 04/06/15 11/08/20 3 Days Ago History ~08/11/20 Losartan Potassium 50 mg PO DAILY 01/19/19 11/08/20 3 Days Ago History ~08/11/20 Lispro Insulin [HumaLOG] 0 unit SUB-Q ACHS units 01/25/19 11/08/20 3 Days Ago Rx ~08/11/20 risperiDONE [RisperDAL] 2 mg PO QAM #60 tablet 01/25/19 11/08/20 3 Days Ago Rx ~08/11/20 risperiDONE [RisperDAL] 3 mg PO QHS #30 tablet 01/25/19 11/08/20 1 Day Ago Rx ~08/13/20 traZODone [Desyrel] 50 mg PO QHS PRN #30 tablet 01/25/19 11/08/20 3 Days Ago Rx ~08/11/20 Active Meds: Active Medications Fish Oil ([place]-3 Fatty Acids/Fish Oil 1 Gram Cap) 2,000 mg PO BID [facility] Last Admin: 11/17/20 09:10 Dose: 2,000 mg Documented by: Insulin Human Lispro (Insulin Lispro 100 Unit/Ml) 0 unit SUB-Q ACHS [facility]; Protocol Last Admin: 11/17/20 07:49 Dose: Not Given Documented by: Losartan Potassium (Losartan 50 Mg Tab) 50 mg PO QDAY [facility] Last Admin: 11/17/20 09:11 Dose: 50 mg Documented by: Metformin HCl (Metformin 500 Mg Tab) 500 mg PO BIDDIAB [facility] Last Admin: 11/17/20 09:11 Dose: 500 mg Documented by: Olanzapine (Olanzapine 5 Mg Tab) 5 mg PO QHS [facility] Last Admin: 11/16/20 21:01 Dose: 5 mg Documented by: Valproic Acid (Valproic Acid 250 Mg/5 Ml Oral Liqd) 250 mg PO BID [facility] Last Admin: 11/17/20 09:10 Dose: 250 mg Documented by: Results - Results Labs/Vitals: Laboratory Last Values POC Glucose 171 mg/dL (70-105) H 11/16/20 19:24 Hemoglobin A1c 6.9 % (4-6) H 11/08/20 08:41 Magnesium 1.90 mg/dL (1.7-2.3) 11/08/20 08:41 Triglycerides 83 mg/dL (2-149) 11/08/20 08:41 Cholesterol 133 mg/dL (50-199) 11/08/20 08:41 LDL Cholesterol Direct 86 mg/dL (50-130) 11/08/20 08:41 HDL Cholesterol 45 mg/dL (40-59) 11/08/20 08:41 Cholesterol/HDL Ratio 2.95 % 11/08/20 08:41 TSH 2.290 mlU/mL (0.270-4.200) 11/08/20 08:41 Last Vital Signs Temp 97.9 F 11/17/20 07:57 Pulse 81 11/17/20 07:57 Resp 18 11/17/20 07:57 BP 154/61 11/17/20 07:57 Pulse Ox 99 11/17/20 07:57
[2020-11-18] MEDS: INSULIN LISPRO 100 UNIT/ML SUB-Q SCH ×4 (07:58→21:17)
[2020-11-18] MEDS: metFORMIN 500 MG TAB PO SCH ×2 (09:19→16:41)
[2020-11-18] MEDS: OMEGA-3 FATTY ACIDS/FISH OIL 1 GRAM CAP PO SCH ×2 (09:19→21:16)
[2020-11-18] MEDS: VALPROIC ACID 250 MG/5 ML ORAL LIQD PO SCH ×2 (09:19→21:17)
--- NOTE | 2020-11-18 09:34 | Progress Note ---
Subjective Date of service: 11/18/20 Principal diagnosis: schizophrenia Subjective Comment: Psych Nurse: Patient spent the day in the activity room interacting appropriately with her peers. She denies si/hi/vh. Patient is medication compliant. pt continue to be incontinent of bladder and bowel ,staff assist with ADLs. Will continue to monitor patient for safety. Psych progress Patient seen this morning reports doing very well, patient endorses feeling good this morning, exercising and walking in the hallways states she is trying to get caught up on activities and also energy and self-care. Patient endorses taking a shower yesterday and states she is looking forward to taking out a shower this afternoon when the weather is a little bit warmer. Patient denies SI HI or auditory visual hallucination Reason for continued psych inpatient hospitalization: Planning for safety discharge REVIEW OF SYSTEMS Constitutional: Negative for weight loss ENT: Negative for stridor Respiratory: Negative for cough or hemoptysis All other systems reviewed and are negative MENTAL STATUS EXAMINATION General Appearance and Behavior: Age appropriate, fair hygiene, not wearing appropriate clothes, good eye contact, cooperative and calm Cooperation: Withdrawn Psychomotor Behavior: calm Mood: "good" Affect and affective range: congruent with stated mood Thought Process: goal oriented Thought Content: logical Speech: Normal tone and pace Intellectual Functioning: Average Suicidal Ideation: Denies Homicidal Ideation: Denies Impulse Control: Impaired Insight and Judgment: Limited insight and judgment Memory: Limited Attention: Normal Orientation: Alert, oriented Assessment and Plan (1) Paranoid schizophrenia (F20.0) Current Visit: No Status: Chronic Treatment Plan Patient admitted for inpatient psychiatric evaluation, medication adjustment and close monitoring The patient's behavior, mood, sleep and appetite will be closely monitored. Patient enrolled in individual and group therapeutic sessions and encouraged to attend. Patient provided with a safe and structured environment. Patient's physical health needs will be addressed by the Hospitalist. Hospitalist Consulted Labs including CBC, CMP, Lipid profile and Hemoglobin A1C levels ordered for baseline reference Social Assessment will be completed and the Cider Press Operator will work with patient and family to ensure a suitable and safe disposition Medication adjustment will be made as clinically indicated Second Invega injection ordered 11/17/20 Usual Wellness Methodist/Preservation: - Start Trazodone 50 mg po QHS & 50 mg po QHS PRN between 10 PM & 2 AM for ins omnia - Start Melatonin 5 mg po QHS to promote circadian rhythm - Start [place]-3 for brain health, reduce impulsivity, and as adjunctive treatment for mood disorder, continue upon discharge given overall benefits. - Start B1 prophylaxis with 200 mg po for 5 days The patient agreed on the treatment plan, understood the risk, benefit, alternative treatment, potential consequence of no treatment, and gave informed consent. Estimated days: 2 Post hospital care: primary care provider, psychiatric provider Medications and Allergies Allergies Allergy/AdvReac Type Severity Reaction Status Date / Time No Known Allergies Allergy Verified 01/19/19 11:38 Home Medications Medication Instructions Recorded Confirmed Last Taken Type metFORMIN [Glucophage] 500 mg PO BID 04/06/15 11/08/20 3 Days Ago History ~08/11/20 Losartan Potassium 50 mg PO DAILY 01/19/19 11/08/20 3 Days Ago History ~08/11/20 Lispro Insulin [HumaLOG] 0 unit SUB-Q ACHS units 01/25/19 11/08/20 3 Days Ago Rx ~08/11/20 risperiDONE [RisperDAL] 2 mg PO QAM #60 tablet 01/25/19 11/08/20 3 Days Ago Rx ~08/11/20 risperiDONE [RisperDAL] 3 mg PO QHS #30 tablet 01/25/19 11/08/20 1 Day Ago Rx ~08/13/20 traZODone [Desyrel] 50 mg PO QHS PRN #30 tablet 01/25/19 11/08/20 3 Days Ago Rx ~08/11/20 Active Meds: Active Medications Fish Oil ([place]-3 Fatty Acids/Fish Oil 1 Gram Cap) 2,000 mg PO BID [facility] Last Admin: 11/18/20 09:19 Dose: 2,000 mg Documented by: Insulin Human Lispro (Insulin Lispro 100 Unit/Ml) 0 unit SUB-Q ACHS [facility]; Protocol Last Admin: 11/18/20 07:58 Dose: Not Given Documented by: Losartan Potassium (Losartan 50 Mg Tab) 50 mg PO QDAY [facility] Last Admin: 11/17/20 09:11 Dose: 50 mg Documented by: Metformin HCl (Metformin 500 Mg Tab) 500 mg PO BIDDIAB [facility] Last Admin: 11/18/20 09:19 Dose: 500 mg Documented by: Olanzapine (Olanzapine 5 Mg Tab) 5 mg PO QHS [facility] Last Admin: 11/17/20 21:03 Dose: 5 mg Documented by: Valproic Acid (Valproic Acid 250 Mg/5 Ml Oral Liqd) 250 mg PO BID [facility] Last Admin: 11/18/20 09:19 Dose: 250 mg Documented by: Results - Results Labs/Vitals: Laboratory Last Values POC Glucose 86 mg/dL (70-105) 11/18/20 07:56 Hemoglobin A1c 6.9 % (4-6) H 11/08/20 08:41 Magnesium 1.90 mg/dL (1.7-2.3) 11/08/20 08:41 Triglycerides 83 mg/dL (2-149) 11/08/20 08:41 Cholesterol 133 mg/dL (50-199) 11/08/20 08:41 LDL Cholesterol Direct 86 mg/dL (50-130) 11/08/20 08:41 HDL Cholesterol 45 mg/dL (40-59) 11/08/20 08:41 Cholesterol/HDL Ratio 2.95 % 11/08/20 08:41 TSH 2.290 mlU/mL (0.270-4.200) 11/08/20 08:41 Last Vital Signs Temp 98.0 F 11/18/20 08:40 Pulse 70 11/18/20 08:40 Resp 18 11/18/20 08:40 BP 154/52 11/18/20 08:40 Pulse Ox 97 11/18/20 08:40
[2020-11-18] MEDS: LOSARTAN 50 MG TAB PO SCH (09:40)
[2020-11-19] MEDS: INSULIN LISPRO 100 UNIT/ML SUB-Q SCH ×4 (07:30→21:08)
--- NOTE | 2020-11-19 08:32 | Progress Note ---
Subjective Date of service: 11/19/20 Principal diagnosis: schizophrenia Subjective Comment: Psych Nurse: This evening the patients affect was bright. Her thoughts were clearer. She spent most of the time resting in bed but came out and interacted with others during snack. She ate 100% of her snack. Her blood glucose was 137. Patient denies si/hi/ah/vh. She was medication compliant. She had no episodes of incontinence. Will continue to monitor patient for safety. Psych progress Patient seen this AM, appears more coherent, says she is doing good, has no complaints, self grooming and improved mood stability. Reason for continued psych inpatient hospitalization: Planning for safety discharge REVIEW OF SYSTEMS Constitutional: Negative for weight loss ENT: Negative for stridor Respiratory: Negative for cough or hemoptysis All other systems reviewed and are negative MENTAL STATUS EXAMINATION General Appearance and Behavior: Age appropriate, fair hygiene, not wearing appropriate clothes, good eye contact, cooperative and calm Cooperation: Withdrawn Psychomotor Behavior: calm Mood: "good" Affect and affective range: congruent with stated mood Thought Process: goal oriented Thought Content: logical Speech: Normal tone and pace Intellectual Functioning: Average Suicidal Ideation: Denies Homicidal Ideation: Denies Impulse Control: Impaired Insight and Judgment: Limited insight and judgment Memory: Limited Attention: Normal Orientation: Alert, oriented Assessment and Plan (1) Paranoid schizophrenia (F20.0) Current Visit: No Status: Chronic Treatment Plan Patient admitted for inpatient psychiatric evaluation, medication adjustment and close monitoring The patient's behavior, mood, sleep and appetite will be closely monitored. Patient enrolled in individual and group therapeutic sessions and encouraged to attend. Patient provided with a safe and structured environment. Patient's physical health needs will be addressed by the Hospitalist. Hospitalist Consulted Labs including CBC, CMP, Lipid profile and Hemoglobin A1C levels ordered for baseline reference Social Assessment will be completed and the Fruit Coordinator will work with patient and family to ensure a suitable and safe disposition Medication adjustment will be made as clinically indicated Second Invega injection ordered 11/17/20 Usual Wellness Mormon/Preservation: - Start Trazodone 50 mg po QHS & 50 mg po QHS PRN between 10 PM & 2 AM for insomnia - Start Melatonin 5 mg po QHS to promote circadian rhythm - Start [place]-3 for brain health, reduce impulsivity, and as adjunctive treatment for mood disorder, continue upon discharge given overall benefits. - Start B1 prophylaxis with 200 mg po for 5 days The patient agreed on the treatment plan, understood the risk, benefit, alternative treatment, potential consequence of no treatment, and gave informed consent. Estimated days: 2 Post hospital care: primary care provider, psychiatric provider Medications and Allergies Allergies Allergy/AdvReac Type Severity Reaction Status Date / Time No Known Allergies Allergy Verified 01/19/19 11:38 Home Medications Medication Instructions Recorded Confirmed Last Taken Type metFORMIN [Glucophage] 500 mg PO BID 04/06/15 11/08/20 3 Days Ago History ~08/11/20 Losartan Potassium 50 mg PO DAILY 01/19/19 11/08/20 3 Days Ago History ~08/11/20 Lispro Insulin [HumaLOG] 0 unit SUB-Q ACHS units 01/25/19 11/08/20 3 Days Ago Rx ~08/11/20 risperiDONE [RisperDAL] 2 mg PO QAM #60 tablet 01/25/19 11/08/20 3 Days Ago Rx ~08/11/20 risperiDONE [RisperDAL] 3 mg PO QHS #30 tablet 01/25/19 11/08/20 1 Day Ago Rx ~08/13/20 traZODone [Desyrel] 50 mg PO QHS PRN #30 tablet 01/25/19 11/08/20 3 Days Ago Rx ~08/11/20 Active Meds: Active Medications Fish Oil ([place]-3 Fatty Acids/Fish Oil 1 Gram Cap) 2,000 mg PO BID [facility] 234 BEDS AT [facility] Last Admin: 11/18/20 21:16 Dose: 2,000 mg Documented by: Insulin Human Lispro (Insulin Lispro 100 Unit/Ml) 0 unit SUB-Q ACHS COUNTS INCLUDE 234 BEDS [facility]; Protocol Last Admin: 11/18/20 21:17 Dose: Not Given Documented by: Losartan Potassium (Losartan 50 Mg Tab) 50 mg PO QDAY COUNTS INCLUDE 234 BEDS AT [facility] Last Admin: 11/18/20 09:40 Dose: 50 mg Documented by: Metformin HCl (Metformin 500 Mg Tab) 500 mg PO BIDDIAB COUNTS INCLUDE 234 BEDS AT [facility] Last Admin: 11/18/20 16:41 Dose: 500 mg Documented by: Olanzapine (Olanzapine 5 Mg Tab) 5 mg PO QHS COUNTS INCLUDE 234 BEDS AT [facility] Last Admin: 11/18/20 21:17 Dose: 5 mg Documented by: Valproic Acid (Valproic Acid 250 Mg/5 Ml Oral Liqd) 250 mg PO BID COUNTS INCLUDE 234 BEDS AT [facility] Last Admin: 11/18/20 21:17 Dose: 250 mg Documented by: Results - Results Labs/Vitals: Laboratory Last Values POC Glucose 98 mg/dL (70-105) 11/19/20 07:26 Hemoglobin A1c 6.9 % (4-6) H 11/08/20 08:41 Magnesium 1.90 mg/dL (1.7-2.3) 11/08/20 08:41 Triglycerides 83 mg/dL (2-149) 11/08/20 08:41 Cholesterol 133 mg/dL (50-199) 11/08/20 08:41 LDL Cholesterol Direct 86 mg/dL (50-130) 11/08/20 08:41 HDL Cholesterol 45 mg/dL (40-59) 11/08/20 08:41 Cholesterol/HDL Ratio 2.95 % 11/08/20 08:41 TSH 2.290 mlU/mL (0.270-4.200) 11/08/20 08:41 Last Vital Signs Temp 98.8 F 11/18/20 19:39 Pulse 90 11/18/20 19:39 Resp 18 11/18/20 19:39 BP 185/82 11/18/20 19:39 Pulse Ox 97 11/18/20 19:39
[2020-11-19] MEDS: VALPROIC ACID 250 MG/5 ML ORAL LIQD PO SCH ×2 (09:18→21:07)
[2020-11-19] MEDS: OMEGA-3 FATTY ACIDS/FISH OIL 1 GRAM CAP PO SCH ×2 (09:18→21:07)
[2020-11-19] MEDS: LOSARTAN 50 MG TAB PO SCH (09:19)
[2020-11-19] MEDS: metFORMIN 500 MG TAB PO SCH ×2 (09:19→17:20)
--- NOTE | 2020-11-19 21:08 | Progress Note ---
Hospitalist Physical - Constitutional Vitals: Temp Pulse Resp BP Pulse Ox 98.1 F 89 15 179/74 98 11/19/20 20:00 11/19/20 20:00 11/19/20 20:00 11/19/20 20:00 11/19/20 20:00 Results - Labs Labs: Laboratory Last Values POC Glucose 177 mg/dL (70-105) H 11/19/20 16:37 Hemoglobin A1c 6.9 % (4-6) H 11/08/20 08:41 Magnesium 1.90 mg/dL (1.7-2.3) 11/08/20 08:41 Triglycerides 83 mg/dL (2-149) 11/08/20 08:41 Cholesterol 133 mg/dL (50-199) 11/08/20 08:41 LDL Cholesterol Direct 86 mg/dL (50-130) 11/08/20 08:41 HDL Cholesterol 45 mg/dL (40-59) 11/08/20 08:41 Cholesterol/HDL Ratio 2.95 % 11/08/20 08:41 TSH 2.290 mlU/mL (0.270-4.200) 11/08/20 08:41 Wiseman/IV: Voiding Method Toilet Active Medications - Current Medications Current Medications: Generic Name Dose Route Start Last Admin Trade Name Freq PRN Reason Stop Dose Admin Fish Oil 2,000 mg 11/07/20 22:00 11/19/20 21:07 [place]-3 Fatty Acids/Fish Oil 1 Gram Cap PO 2,000 mg BID [facility]ANC[facility] Administration Insulin Human Lispro 0 unit 11/09/20 11:30 11/19/20 21:08 Insulin Lispro 100 Unit/Ml SUB-Q Not Given ACHS [facility] Protocol Losartan Potassium 50 mg 11/09/20 10:00 11/19/20 09:19 Losartan 50 Mg Tab PO 50 mg QDAY [facility] Administration Metformin HCl 500 mg 11/09/20 09:00 11/19/20 17:20 Metformin 500 Mg Tab PO 500 mg BIDDIAB [facility] Administration Olanzapine 5 mg 11/16/20 22:00 11/19/20 21:07 Olanzapine 5 Mg Tab PO 5 mg QHS [facility]ANC[facility] Administration Valproic Acid 250 mg 11/16/20 22:00 11/19/20 21:07 Valproic Acid 250 Mg/5 Ml Oral Liqd PO 250 mg BID [facility] Administration Nutrition/Malnutrition Assess - Dietary Evaluation Nutrition/Malnutrition Findings: Nutrition Notes Start: 11/14/20 11:17 Freq: Status: Active Protocol: Document 11/14/20 11:17 AB (Rec: 11/14/20 11:18 AB [id number]) Co-Sign 11/14/20 11:17 LP Nutrition Notes Need for Assessment generated from: LOS Initial or Follow up Brief Note Other Pertinent Diagnosis paranoid schizophrenia, LE edema Current Diet Cardiac/Consistent CHO Subjective/Other Information Screen for LOS. Pt eating 100% of meals, per chart. Nutrition Intervention Revisit per MD consult or patient Sign Off request:
--- NOTE | 2020-11-20 08:24 | Progress Note ---
Subjective Date of service: 11/20/20 Principal diagnosis: schizophrenia Subjective Comment: Psych Nurse: [id number] Patient was calm and cooperative, med compliant, denies SI/HI. She ate all her meals, no episode of incontinence. Getting a shower at this time, assisted by staff. No distress noted, will continue to monitor. Psych progress Patient describes a good and stable mood, denies being depressed or excessively nervous. Patient eats and sleeps well. Patient denies panic attacks, recurrent nightmares or flashbacks. Patient denies symptoms suggestive of OCD or PTSD. Patient denies hallucinations, paranoia, thought interference and no features suggestive of hypomania or eva. Patiently completely denies suicidal or homicidal thoughts. Reason for continued psych inpatient hospitalization: Planning for safety discharge REVIEW OF SYSTEMS Constitutional: Negative for weight loss ENT: Negative for stridor Respiratory: Negative for cough or hemoptysis All other systems reviewed and are negative MENTAL STATUS EXAMINATION General Appearance and Behavior: Age appropriate, fair hygiene, not wearing appropriate clothes, good eye contact, cooperative and calm Cooperation: Withdrawn Psychomotor Behavior: calm Mood: "good" Affect and affective range: congruent with stated mood Thought Process: goal oriented Thought Content: logical Speech: Normal tone and pace Intellectual Functioning: Average Suicidal Ideation: Denies Homicidal Ideation: Denies Impulse Control: Impaired Insight and Judgment: Limited insight and judgment Memory: Limited Attention: Normal Orientation: Alert, oriented Assessment and Plan (1) Paranoid schizophrenia (F20.0) Current Visit: No Status: Chronic Treatment Plan Patient admitted for inpatient psychiatric evaluation, medication adjustment and close monitoring The patient's behavior, mood, sleep and appetite will be closely monitored. Patient enrolled in individual and group therapeutic sessions and encouraged to attend. Patient provided with a safe and structured environment. Patient's physical health needs will be addressed by the Hospitalist. Hospitalist Consulted Labs including CBC, CMP, Lipid profile and Hemoglobin A1C levels ordered for baseline reference Social Assessment will be completed and the Bank Compliance Officer will work with patient and family to ensure a suitable and safe disposition Medication adjustment will be made as clinically indicated Second Invega injection ordered 11/17/20 Usual Wellness Caodaism/Preservation: - Start Trazodone 50 mg po QHS & 50 mg po QHS PRN between 10 PM & 2 AM for insomnia - Start Melatonin 5 mg po QHS to promote circadian rhythm - Start [place]-3 for brain health, reduce impulsivity, and as adjunctive treatment for mood disorder, continue upon discharge given overall benefits. - Start B1 prophylaxis with 200 mg po for 5 days The patient agreed on the treatment plan, understood the risk, benefit, alternative treatment, potential consequence of no treatment, and gave informed consent. Estimated days: 2 Post hospital care: primary care provider, psychiatric provider Medications and Allergies Allergies Allergy/AdvReac Type Severity Reaction Status Date / Time No Known Allergies Allergy Verified 01/19/19 11:38 Home Medications Medication Instructions Recorded Confirmed Last Taken Type metFORMIN [Glucophage] 500 mg PO BID 04/06/15 11/08/20 3 Days Ago History ~08/11/20 Losartan Potassium 50 mg PO DAILY 01/19/19 11/08/20 3 Days Ago History ~08/11/20 Lispro Insulin [HumaLOG] 0 unit SUB-Q ACHS units 01/25/19 11/08/20 3 Days Ago Rx ~08/11/20 risperiDONE [RisperDAL] 2 mg PO QAM #60 tablet 01/25/19 11/08/20 3 Days Ago Rx ~08/11/20 risperiDONE [RisperDAL] 3 mg PO QHS #30 tablet 01/25/19 11/08/20 1 Day Ago Rx ~08/13/20 traZODone [Desyrel] 50 mg PO QHS PRN #30 tablet 01/25/19 11/08/20 3 Days Ago Rx ~08/11/20 Divalproex [Dee MCNEAL] 500 mg PO BID 30 Days #60 tablet 11/19/20 Unknown Rx OLANzapine [ZyPREXA] 5 mg PO QHS #30 tablet 11/19/20 Unknown Rx Active Meds: Active Medications Fish Oil ([place]-3 Fatty Acids/Fish Oil 1 Gram Cap) 2,000 mg PO BID [facility] Last Admin: 11/19/20 21:07 Dose: 2,000 mg Documented by: Insulin Human Lispro (Insulin Lispro 100 Unit/Ml) 0 unit SUB-Q ACHS [facility]; Protocol Last Admin: 11/19/20 21:08 Dose: Not Given Documented by: Losartan Potassium (Losartan 50 Mg Tab) 50 mg PO QDAY [facility] Last Admin: 11/19/20 09:19 Dose: 50 mg Documented by: Metformin HCl (Metformin 500 Mg Tab) 500 mg PO BIDDIAB [facility] Last Admin: 11/19/20 17:20 Dose: 500 mg Documented by: Olanzapine (Olanzapine 5 Mg Tab) 5 mg PO QHS [facility] Last Admin: 11/19/20 21:07 Dose: 5 mg Documented by: Valproic Acid (Valproic Acid 250 Mg/5 Ml Oral Liqd) 250 mg PO BID [facility] Last Admin: 11/19/20 21:07 Dose: 250 mg Documented by: Results - Results Labs/Vitals: Laboratory Last Values POC Glucose 86 mg/dL (70-105) 11/20/20 06:14 Hemoglobin A1c 6.9 % (4-6) H 11/08/20 08:41 Magnesium 1.90 mg/dL (1.7-2.3) 11/08/20 08:41 Triglycerides 83 mg/dL (2-149) 11/08/20 08:41 Cholesterol 133 mg/dL (50-199) 11/08/20 08:41 LDL Cholesterol Direct 86 mg/dL (50-130) 11/08/20 08:41 HDL Cholesterol 45 mg/dL (40-59) 11/08/20 08:41 Cholesterol/HDL Ratio 2.95 % 11/08/20 08:41 TSH 2.290 mlU/mL (0.270-4.200) 11/08/20 08:41 Last Vital Signs Temp 98.1 F 11/19/20 20:00 Pulse 89 11/19/20 20:00 Resp 15 11/19/20 20:00 BP 179/74 11/19/20 20:00 Pulse Ox 98 11/19/20 20:00
[2020-11-20] MEDS: metFORMIN 500 MG TAB PO SCH ×2 (09:33→17:18)
[2020-11-20] MEDS: OMEGA-3 FATTY ACIDS/FISH OIL 1 GRAM CAP PO SCH ×2 (09:33→21:20)
[2020-11-20] MEDS: INSULIN LISPRO 100 UNIT/ML SUB-Q SCH ×4 (09:33→21:29)
[2020-11-20] MEDS: VALPROIC ACID 250 MG/5 ML ORAL LIQD PO SCH ×2 (09:34→21:16)
[2020-11-20] MEDS: LOSARTAN 50 MG TAB PO SCH (09:39)
--- NOTE | 2020-11-20 11:59 | Discharge Summary ---
Providers - Providers Date of Admission: 11/07/20 18:49 Date of discharge: 11/20/20 Attending physician: EMANI ZAPATA MD 11/07/20 17:06 Consult to Physician [CONS] Routine Comment: Consulting Provider: LANDON HAMPTON Physician Instructions: Reason For Exam: Medical Management Primary care physician: SALES CONSULTANT RESIDENTIAL MANAGER Hospitalization Reason for admission: Acute schizophrenia Condition: Good Hospital course: The patient was provided inpatient psychiatric treatment with safe and supportive environment, group/individual therapy, psychiatric medication, medication adjustment, adverse effect monitor, medical evaluation, medical treatment, social service assessment, social support meeting, placement asses sment and psycho-education. The patients mood, behavior, compliance to treatment and appreciation on family/social support are improved and stabilized. At the time of discharge, the patient no endangering behavior and no debilitating adverse effects. The family agreed on the treatment plan, understood the risk, benefit, alternative treatment, potential consequence of no treatment, and gave informed consent. Disposition: DC-01 TO HOME OR SELFCARE Allergies/Adverse Reactions: Allergies No Known Allergies Allergy (Verified 01/19/19 11:38) Vital Signs: Last Vital Signs Temp 98.4 F 11/20/20 08:29 Pulse 79 11/20/20 09:39 Resp 18 11/20/20 08:29 BP 149/65 11/20/20 09:39 Pulse Ox 92 11/20/20 08:29 Last Lab: Laboratory Last Values POC Glucose 106 mg/dL (70-105) H 11/20/20 11:31 Hemoglobin A1c 6.9 % (4-6) H 11/08/20 08:41 Magnesium 1.90 mg/dL (1.7-2.3) 11/08/20 08:41 Triglycerides 83 mg/dL (2-149) 11/08/20 08:41 Cholesterol 133 mg/dL (50-199) 11/08/20 08:41 LDL Cholesterol Direct 86 mg/dL (50-130) 11/08/20 08:41 HDL Cholesterol 45 mg/dL (40-59) 11/08/20 08:41 Cholesterol/HDL Ratio 2.95 % 11/08/20 08:41 TSH 2.290 mlU/mL (0.270-4.200) 11/08/20 08:41 Core Measure Documentation - Palliative Care Palliative Care/ Comfort Measures: Not Applicable - Core Measures Any of the following diagnoses?: none Exam - Constitutional Vitals: Temp Pulse Resp BP Pulse Ox 98.4 F 79 18 149/65 92 11/20/20 08:29 11/20/20 09:39 11/20/20 08:29 11/20/20 09:39 11/20/20 08:29 General appearance: Present: no acute distress - EENT Eyes: Present: PERRL, EOM intact ENT: hearing intact, clear oral mucosa - Neck Neck: Present: supple, normal ROM - Respiratory Respiratory effort: normal - Abdominal Female genitourinary: Present: deferred - Integumentary Integumentary: Present: clear, warm, dry Plan Care Plan Goals: Goals: Maintain good and stable mental health. Plan of Treatment: The patient should be compliant with medications, not to use drugs and not to drink alcohol. The patient understands that if suicidal ideas, homicidal ideas, or any endangering thoughts arise, the patient should immediately seek for emergent assistance including but not limited to crisis hot line and emergency room. Follow up with outpatient Psychiatrist and PCP within 7 - 14 days of discharge. Follow up with: PRIMARY CARE, [Primary Care Provider] - 7 Days Prescriptions: OLANzapine [ZyPREXA] 5 mg PO QHS #30 tablet Divalproex [DepaKOTE ] 500 mg PO BID 30 Days #60 tablet
[2020-11-20 20:14] VITALS: BP 184/79
== END 2020-11-20 21:30 | disposition home or self-care (01) | DRG 885 ==
LOC: UNDOADMIN 15:35 → 3A 15:35 → 5A 18:49
PROVIDERS: ADMIT Psychiatry & Neurology Psychiatry; ATTEND Psychiatry & Neurology Psychiatry
DX: F20.0 Paranoid schizophrenia (principal); E11.42 Type 2 diabetes mellitus with diabetic polyneuropathy; Z79.899 Other long term (current) drug therapy; Z79.84 Long term (current) use of oral hypoglycemic drugs
CPT/HCPCS: 36415; 80053; 80061; 80307; 80320; 81001; 82962; 83036; 83735; 84443; 85025; G0378; G0480; J1815; U0003

== ENCOUNTER 2021-05-13 18:11 | Inpatient (IN) | payer MEDICARE ==
[2021-05-13] MEDS ORDERED: LACTATED RINGERS 1,000 ML IV ONE (20:57)
[2021-05-13] MEDS ORDERED: ACETAMINOPHEN 325 MG TAB PO STA (20:58)
--- NOTE | 2021-05-13 21:01 | Emergency Department Report ---
ED General Adult HPI - General Chief complaint: Weakness Stated complaint: WEAKNESS PUI?: No Time Seen by Provider: 05/13/21 20:44 Source: patient, EMS (Verbal report received from emergency medical services. EMS documentation not available at time of chart dictation ), RN notes reviewed, old records reviewed Mode of arrival: Stretcher Limitations: Physical Limitation - History of Present Illness Initial comments: Patient presented during the COVID-19 virus pandemic and has a clinical picture consistent with a COVID-19 source for sepsis. Thus, patient was treated for suspected viral sepsis rather than bacterial sepsis. Given the potential for ARDS and present suggestions of early data from COVID treatment in other areas, fluids were given judiciously and the bacterial sepsis guidelines were deviated from. For consideration of other sources, blood cultures, antibiotics and lactic acid will potentially be ordered. Will continue to monitor blood pressure and adjust fluid resuscitation accordingly Patient is a 75-year-old female. She is not known to myself previously. She has a history of obesity, diabetes, hypertension, psychiatric disease, presumed physical deconditioning, and reports a history of appendectomy and cholecystectomy. She is brought to the hospital by emergency medical services with a complaint of generalized weakness. EMS states the patient had a mechanical fall 1 week ago. The patient has been laying on a mattress at home, that a family member got for her. The patient does not remember how she fell. The patient states she has chronic muscular leg pain. The patient denies headache, neck pain, chest pain, abdominal pain, dysuria, shortness of breath, loss of taste and smell. The patient denies focal extremity weakness or numbness. The patient denies bladder/bowel retention and incontinence. EMS reports unremarkable vital signs in the field, they do indicate that the patient had soiled herself with feculent material on her legs. This is because the patient could not get up and go to the bathroom. -: Gradual, days(s) Location: left, right, lower extremity Quality: aching Consistency: constant Improves with: rest Worsens with: movement - Related Data Home Medications Medication Instructions Recorded Confirmed Last Taken metFORMIN [Glucophage] 500 mg PO BID 04/06/15 11/08/20 3 Days Ago ~08/11/20 Losartan Potassium 50 mg PO DAILY 01/19/19 11/08/20 3 Days Ago ~08/11/20 Previous Rx's Medication Instructions Recorded Last Taken Type Lispro Insulin [HumaLOG] 0 unit SUB-Q ACHS units 01/25/19 3 Days Ago Rx ~08/11/20 risperiDONE [RisperDAL] 2 mg PO QAM #60 tablet 01/25/19 3 Days Ago Rx ~08/11/20 risperiDONE [RisperDAL] 3 mg PO QHS #30 tablet 01/25/19 1 Day Ago Rx ~08/13/20 traZODone [Desyrel] 50 mg PO QHS PRN #30 tablet 01/25/19 3 Days Ago Rx ~08/11/[address] [DepaKOTE DR] 500 mg PO BID 30 Days #60 tablet 11/19/20 Unknown Rx OLANzapine [ZyPREXA] 5 mg PO QHS #30 tablet 11/19/20 Unknown Rx Allergies Allergy/AdvReac Type Severity Reaction Status Date / Time No Known Allergies Allergy Verified 01/19/19 11:38 ED Review of Systems ROS: Stated complaint: WEAKNESS Other details as noted in HPI Constitutional: malaise, weakness. denies: fever Eyes: denies: eye discharge ENT: denies: epistaxis Respiratory: denies: cough Cardiovascular: denies: chest pain Gastrointestinal: denies: abdominal pain Genitourinary: denies: dysuria Musculoskeletal: arthralgia, myalgia Neurological: weakness. denies: headache ED Past Medical Hx - Past Medical History Hx Diabetes: Yes Hx Renal Disease: No Hx Arthritis: No Hx Seizures: No Hx Psychiatric Treatment: Yes (anxiety, schizophrenia) Hx Dementia: (possibly) Hx HIV: No Additional medical history: peripheral neuropathy - Surgical History Hx Cholecystectomy: No Hx Appendectomy: No - Social History Smoking Status: Unknown if ever smoked - Medications Home Medications: Home Medications Medication Instructions Recorded Confirmed Last Taken Type metFORMIN [Glucophage] 500 mg PO BID 04/06/15 11/08/20 3 Days Ago History ~08/11/20 Losartan Potassium 50 mg PO DAILY 01/19/19 11/08/20 3 Days Ago History ~08/11/20 Lispro Insulin [HumaLOG] 0 unit SUB-Q ACHS units 01/25/19 11/08/20 3 Days Ago Rx ~08/11/20 risperiDONE [RisperDAL] 2 mg PO QAM #60 tablet 01/25/19 11/08/20 3 Days Ago Rx ~08/11/20 risperiDONE [RisperDAL] 3 mg PO QHS #30 tablet 01/25/19 11/08/20 1 Day Ago Rx ~08/13/20 traZODone [Desyrel] 50 mg PO QHS PRN #30 tablet 01/25/19 11/08/20 3 Days Ago Rx ~08/11/[address] [DepaKOTE DR] 500 mg PO BID 30 Days #60 tablet 11/19/20 Unknown Rx OLANzapine [ZyPREXA] 5 mg PO QHS #30 tablet 11/19/20 Unknown Rx ED Physical Exam - General Limitations: Physical Limitation General appearance: alert, anxious, obese - Head Head exam: Present: atraumatic, normocephalic - Eye Eye exam: Present: normal appearance, EOMI. Absent: nystagmus - ENT ENT exam: Present: normal exam, mucous membranes dry, mucous membranes moist, normal external ear exam - Neck Neck exam: Present: normal inspection, full ROM. Absent: tenderness, meningismus - Respiratory Respiratory exam: Present: normal lung sounds bilaterally. Absent: respiratory distress, wheezes, rales, rhonchi, stridor, decreased breath sounds - Cardiovascular Cardiovascular Exam: Present: regular rate, normal rhythm, normal heart sounds. Absent: bradycardia, tachycardia, irregular rhythm, systolic murmur, diastolic murmur, rubs, gallop - GI/Abdominal GI/Abdominal exam: Present: soft. Absent: distended, tenderness, guarding, rebound, rigid, pulsatile mass - Rectal Rectal exam: Present: other (Skin breakdown and abrasions are noted). Absent: normal inspection - Extremities Exam Extremities exam: Present: pedal edema (1+ edema in the bilateral lower extremities), other (2+ pulses noted in the bilateral upper and lower extremities. The pelvis is stable. Muscular compartments are diffusely tender, but soft.). Absent: normal inspection (Gluteal induration, abrasions are noted bilaterally) - Back Exam Back exam: Present: normal inspection. Absent: tenderness, CVA tenderness (R), paraspinal tenderness, vertebral tenderness - Neurological Exam Neurological exam: Present: alert, oriented X3, reflexes normal (Downgoing plantar reflexes bilaterally. 2+ biceps and quadriceps reflex bilaterally), other (No facial droop. Tongue midline. Extraocular movements intact bilaterally. Facial sensation intact to light touch in V1, V2, V3 distribution bilaterally. 5 and a 5 strength in 4 extremities. Sensation intact to light touch in 4 extremities.) - Psychiatric Psychiatric exam: Present: anxious - Skin Skin exam: Present: warm, abrasion, ecchymosis ED Course Vital Signs 05/13/21 05/13/21 05/13/21 20:30 20:33 20:46 Temperature 98.2 F Pulse Rate 94 H 84 Respiratory 14 21 Rate Blood Pressure 142/48 142/48 O2 Sat by Pulse 98 98 98 Oximetry 05/13/21 05/13/21 05/13/21 21:00 21:16 21:40 Temperature Pulse Rate 84 89 92 H Respiratory 23 24 16 Rate Blood Pressure 142/48 142/48 O2 Sat by Pulse 98 99 99 Oximetry 05/13/21 05/13/21 05/13/21 21:46 22:00 22:16 Temperature Pulse Rate 91 H 95 H 85 Respiratory 22 21 14 Rate Blood Pressure O2 Sat by Pulse 98 97 98 Oximetry 05/13/21 22:30 Temperature Pulse Rate 89 Respiratory 24 Rate Blood Pressure 119/57 O2 Sat by Pulse 98 Oximetry - Reevaluation(s) Reevaluation #1: 05/13/21 21:13 Differential diagnosis, including but not limited to: Fall, deconditioning, pneumonia, intra-abdominal i infection, urinary tract infection, skin breakdown, fracture, dislocation, rhabdomyolysis Assessment and plan: 75-year-old female with generalized weakness and mechanical fall 1 week ago, who has 5 out of 5 strength in 4 extremities, with intact sensation to light touch, pain, downgoing plantar reflexes, with no midline T or L-spine tenderness, low- grade temperature of 100.1 rectally, and rectal abrasion/gluteal abrasions. Place patient on health promotion specialist. Obtain appropriate laboratory studies, noncontrast CT scan of the brain and cervical spine, noncontrast CT scan of the abdomen pelvis, x-ray of the pelvis, and right lower extremity, establish IV access, start fluids, and analgesia. Admit patient to the medical service once initial diagnostics have resulted. I discussed this plan of care with the patient, she is in agreement. Given lack of spinal tenderness, appropriate strength, sensation, reflexes, spinal epidural abscess is very unlikely. This is most likely global deconditioning, likely secondary to multiple factors, including obesity. Patient denies urinary symptoms, check UA, denies Covid symptomatology. 05/14/21 00:01 Reevaluation #2: 05/13/21 22:18 Patient is refusing additional laboratory work-up and diagnostic evaluation. Attempted to explain significance and need to acquire laboratory studies and continue work-up. Patient is refusing, but she does not appear to understand the necessity for acquisition of laboratory studies. This patient does not have decision-making capacity. She has a low-grade temperature, and a urinalysis that suggest a urinary tract infection. It is my oponion that this patient has acute delirium, likely secondary to urinary tract infection. This patient does not have decision-making capacity, and therefore, will be medicated with haloperidol and Ativan to allow for acquisition of appropriate laboratory studies. 05/14/21 00:00 X-ray of the pelvis, femur, tib-fib negative for acute findings. Laboratory studies pending at this time. Hospital physician, Dr. Kathrine Damon to admit to [facility] once labs result ED Medical Decision Making - Lab Data Result diagrams: 05/13/21 23:23 05/13/21 23:23 Vital Signs 05/13/21 20:33 Temperature 98.2 F Pulse Rate 94 H Respiratory 14 Rate Blood Pressure 142/48 O2 Sat by Pulse 98 Oximetry Lab Results 05/13/21 05/13/21 05/13/21 Range/Units 23:23 23:23 23:23 WBC 9.1 (4.5-11.0) K/mm3 RBC 4.07 (3.65-5.03) M/mm3 Hgb 13.0 (10.1-14.3) gm/dl Hct 38.2 (30.3-42.9) % MCV 94 (79-97) fl MCH 32 (28-32) pg MCHC 34 (30-34) % RDW 14.0 (13.2-15.2) % Plt Count 209 (140-440) K/mm3 Lymph % (Auto) 17.7 (13.4-35.0) % [place] % (Auto) 9.5 H (0.0-7.3) % Eos % (Auto) 1.4 (0.0-4.3) % Baso % (Auto) 0.4 (0.0-1.8) % Lymph # (Auto) 1.6 (1.2-5.4) K/mm3 [place] # (Auto) 0.9 H (0.0-0.8) K/mm3 Eos # (Auto) 0.1 (0.0-0.4) K/mm3 Baso # (Auto) 0.0 (0.0-0.1) K/mm3 Seg Neutrophils % 71.0 H (40.0-70.0) % Seg Neutrophils # 6.5 (1.8-7.7) K/mm3 PT 14.9 (12.2-14.9) Sec. INR 1.12 (0.87-1.13) APTT 53.7 H (24.2-36.6) Sec. Sodium 140 (137-145) mmol/L Potassium 3.6 (3.6-5.0) mmol/L Chloride 105.0 (98-107) mmol/L Carbon Dioxide 25 (22-30) mmol/L Anion Gap 14 mmol/L BUN 15 (7-17) mg/dL Creatinine 0.9 (0.6-1.2) mg/dL Estimated GFR > 60 ml/min BUN/Creatinine Ratio 17 % Glucose 128 H (65-100) mg/dL Lactic Acid (0.7-2.0) mmol/L Calcium 8.3 L (8.4-10.2) mg/dL Magnesium (1.7-2.3) mg/dL Total Bilirubin 0.60 (0.1-1.2) mg/dL AST 14 (5-40) units/L ALT 15 (7-56) units/L Alkaline Phosphatase 64 (35-129) units/L Ammonia (25-60) umol/L Total Creatine Kinase (30-135) units/L Troponin T 0.011 (0.00-0.029) ng/mL Total Protein 5.8 L (6.3-8.2) g/dL Albumin 3.1 L (3.9-5) g/dL Albumin/Globulin Ratio 1.1 % Urine Color (Yellow) Urine Turbidity (Clear) Urine pH (5.0-7.0) Ur Specific [place] (1.003-1.030) Urine Protein (Negative) mg/dL Urine Glucose (UA) (Negative) mg/dL Urine Ketones (Negative) mg/dL Urine Blood (Negative) Urine Nitrite (Negative) Urine Bilirubin (Negative) Urine Urobilinogen (<2.0) mg/dL Ur Leukocyte Esterase (Negative) Urine WBC (Auto) (0.0-6.0) /HPF Urine RBC (Auto) (0.0-6.0) /HPF U Epithel Cells (Auto) (0-13.0) /HPF Urine Bacteria (Auto) (Negative) /HPF Urine Mucus /HPF Urine Yeast (Budding) /HPF Valproic Acid (50-100) ug/mL 05/13/21 05/13/21 05/13/21 Range/Units 23:23 23:23 23:23 WBC (4.5-11.0) K/mm3 RBC (3.65-5.03) M/mm3 Hgb (10.1-14.3) gm/dl Hct (30.3-42.9) % MCV (79-97) fl MCH (28-32) pg MCHC (30-34) % RDW (13.2-15.2) % Plt Count (140-440) K/mm3 Lymph % (Auto) (13.4-35.0) % [place] % (Auto) (0.0-7.3) % Eos % (Auto) (0.0-4.3) % Baso % (Auto) (0.0-1.8) % Lymph # (Auto) (1.2-5.4) K/mm3 [place] # (Auto) (0.0-0.8) K/mm3 Eos # (Auto) (0.0-0.4) K/mm3 Baso # (Auto) (0.0-0.1) K/mm3 Seg Neutrophils % (40.0-70.0) % Seg Neutrophils # (1.8-7.7) K/mm3 PT (12.2-14.9) Sec. INR (0.87-1.13) APTT (24.2-36.6) Sec. Sodium (137-145) mmol/L Potassium (3.6-5.0) mmol/L Chloride (98-107) mmol/L Carbon Dioxide (22-30) mmol/L Anion Gap mmol/L BUN (7-17) mg/dL Creatinine (0.6-1.2) mg/dL Estimated GFR ml/min BUN/Creatinine Ratio % Glucose (65-100) mg/dL Lactic Acid 1.30 (0.7-2.0) mmol/L Calcium (8.4-10.2) mg/dL Magnesium 1.70 (1.7-2.3) mg/dL Total Bilirubin (0.1-1.2) mg/dL AST (5-40) units/L ALT (7-56) units/L Alkaline Phosphatase (35-129) units/L Ammonia 15.0 L (25-60) umol/L Total Creatine Kinase 95 (30-135) units/L Troponin T (0.00-0.029) ng/mL Total Protein (6.3-8.2) g/dL Albumin (3.9-5) g/dL Albumin/Globulin Ratio % Urine Color (Yellow) Urine Turbidity (Clear) Urine pH (5.0-7.0) Ur Specific [place] (1.003-1.030) Urine Protein (Negative) mg/dL Urine Glucose (UA) (Negative) mg/dL Urine Ketones (Negative) mg/dL Urine Blood (Negative) Urine Nitrite (Negative) Urine Bilirubin (Negative) Urine Urobilinogen (<2.0) mg/dL Ur Leukocyte Esterase (Negative) Urine WBC (Auto) (0.0-6.0) /HPF Urine RBC (Auto) (0.0-6.0) /HPF U Epithel Cells (Auto) (0-13.0) /HPF Urine Bacteria (Auto) (Negative) /HPF Urine Mucus /HPF Urine Yeast (Budding) /HPF Valproic Acid (50-100) ug/mL 05/13/21 05/13/21 Range/Units 23:23 Unknown WBC (4.5-11.0) K/mm3 RBC (3.65-5.03) M/mm3 Hgb (10.1-14.3) gm/dl Hct (30.3-42.9) % MCV (79-97) fl MCH (28-32) pg MCHC (30-34) % RDW (13.2-15.2) % Plt Count (140-440) K/mm3 Lymph % (Auto) (13.4-35.0) % [place] % (Auto) (0.0-7.3) % Eos % (Auto) (0.0-4.3) % Baso % (Auto) (0.0-1.8) % Lymph # (Auto) (1.2-5.4) K/mm3 [place] # (Auto) (0.0-0.8) K/mm3 Eos # (Auto) (0.0-0.4) K/mm3 Baso # (Auto) (0.0-0.1) K/mm3 Seg Neutrophils % (40.0-70.0) % Seg Neutrophils # (1.8-7.7) K/mm3 PT (12.2-14.9) Sec. INR (0.87-1.13) APTT (24.2-36.6) Sec. Sodium (137-145) mmol/L Potassium (3.6-5.0) mmol/L Chloride (98-107) mmol/L Carbon Dioxide (22-30) mmol/L Anion Gap mmol/L BUN (7-17) mg/dL Creatinine (0.6-1.2) mg/dL Estimated GFR ml/min BUN/Creatinine Ratio % Glucose (65-100) mg/dL Lactic Acid (0.7-2.0) mmol/L Calcium (8.4-10.2) mg/dL Magnesium (1.7-2.3) mg/dL Total Bilirubin (0.1-1.2) mg/dL AST (5-40) units/L ALT (7-56) units/L Alkaline Phosphatase (35-129) units/L Ammonia (25-60) umol/L Total Creatine Kinase (30-135) units/L Troponin T (0.00-0.029) ng/mL Total Protein (6.3-8.2) g/dL Albumin (3.9-5) g/dL Albumin/Globulin Ratio % Urine Color Yellow (Yellow) Urine Turbidity Slightly-cloudy (Clear) Urine pH 6.0 (5.0-7.0) Ur Specific [place] 1.017 (1.003-1.030) Urine Protein 30 mg/dl (Negative) mg/dL Urine Glucose (UA) >=500 (Negative) mg/dL Urine Ketones Tr (Negative) mg/dL Urine Blood Mod (Negative) Urine Nitrite Neg (Negative) Urine Bilirubin Neg (Negative) Urine Urobilinogen 2.0 (<2.0) mg/dL Ur Leukocyte Esterase Mod (Negative) Urine WBC (Auto) 20.0 H (0.0-6.0) /HPF Urine RBC (Auto) 9.0 (0.0-6.0) /HPF U Epithel Cells (Auto) 8.0 (0-13.0) /HPF Urine Bacteria (Auto) 2+ (Negative) /HPF Urine Mucus Few /HPF Urine Yeast (Budding) Few /HPF Valproic Acid < 2.8 L (50-100) ug/mL - EKG Data -: EKG Interpreted by Wy EKG shows normal: sinus rhythm Rate: normal - EKG Data When compared to previous EKG there are: previous EKG unavailable 05/13/21 21:15 EKG interpreted at 21: 03 Sinus rhythm, 76 bpm. Normal axis, normal intervals, left ventricular hypertrophy, and motion artifact. This is an abnormal EKG. This is no STEMI. - Radiology Data Radiology results: pending, report reviewed, image reviewed CT ABDOMEN AND PELVIS WITHOUT CONTRAST INDICATION / CLINICAL INFORMATION: Fall, weakness, leg pain, low grade fever. TECHNIQUE: Axial CT images were obtained through the abdomen and pelvis without IV contrast. All CT scans at this location are performed using CT dose reduction for REBIScanRA by means of automated exposure control. COMPARISON: None available. FINDINGS: LOWER CHEST: No significant abnormality. LIVER: No significant abnormality. GALLBLADDER: No significant abnormality. BILE DUCTS: No significant abnormality. PANCREAS: No significant abnormality. SPLEEN: No significant abnormality. ADRENALS: Bilateral mild nodular thickening. RIGHT KIDNEY / URETER: Nonobstructing 3 mm calculus lower pole LEFT KIDNEY / URETER: Nonobstructing 4 mm calculus upper pole. STOMACH / SMALL BOWEL: No significant abnormality. COLON: Diverticulosis without acute inflammation. APPENDIX: Not visualized. PERITONEUM: No free fluid. No fr ee air. No fluid collection. LYMPH NODES: No significant adenopathy. AORTA / ARTERIES: Moderate atherosclerotic calcification without acute abnormality. IVC / VEINS: No significant abnormality. URINARY BLADDER: No significant abnormality. REPRODUCTIVE ORGANS: No significant abnormality. ADDITIONAL FINDINGS: Tiny fat-containing umbilical hernia. There is a metallic clip seen adjacent to the right common iliac artery. SKELETAL SYSTEM: Degenerative changes without aggressive osseous lesion. IMPRESSION: 1. No acute abnormality identified in the abdomen and pelvis. 2. Bilateral nonobstructing renal calculi. Signer Name: Branden Dorado MD Signed: 05/13/2021 8:[address] cervical spine wo con INDICATION / CLINICAL INFORMATION: 75 years Female; Fall and weakness. TECHNIQUE: Axial CT images of the cervical spine were obtained. Sagittal and coronal reformatted images were produced. All CT scans at this location are performed using CT dose reduction for ALARA by means of automated exposure control. COMPARISON: None available. FINDINGS: POST- SURGICAL CHANGES: None. ALIGNMENT: No significant abnormality. VERTEBRAE: No signs of fracture. Vertebral bodies are grossly normal in height throughout. Significant osseous foraminal narrowing is seen in the left at C3-4 and C4-5 from facet hypertrophy. Mild findings on the left noted at C6-7 from uncinate hypertrophy. INTRAVERTEBRAL DISCS: Mild disc space narrowing seen at C5-6. Minimal disc disease seen at various levels. No signs of significant canal stenosis. PARASPINAL SOFT TISSUES: No significant abnormality. ADDITIONAL FINDINGS: Atherosclerotic disease is seen to a mild degree in the anterior circulation. 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 There is partial opacification of the inferior mastoids on the right, with small air-fluid level. IMPRESSION: 1. No signs of acute bony trauma to the cervical spine. Signer Na me: Dawit Santos MD, III Signed: 05/13/2021 8:54 PM Workstation Name[id number] head[facility]brain wo con INDICATION / CLINICAL INFORMATION: 75 years Female; Fall and weakness. TECHNIQUE: Routine CT head without contrast. All CT scans at this location are performed using CT dose reduction for ALARA by means of automated exposure control. COMPARISON: None. FINDINGS: BRAIN / INTRACRANIAL CONTENTS: No acute hemorrhage, mass effect, midline shift, hydrocephalus, or acute, large territorial infarct. Mild, diffuse cerebral atrophy. There are mild areas of decreased attenuation in the white matter of the cerebral hemispheres. These are nonspecific findings and may be related to microangiopathy (hypertension, diabetes, atherosclerosis), given the patient's age. It might be difficult to e valuate for small areas of ischemia without diffusion imaging by MRI. CRANIOCERVICAL JUNCTION: No significant abnormality. ORBITS: No significant abnormality of visualized orbits. SINUSES / MASTOIDS: Visualized paranasal sinuses and mastoid air cells are essentially clear. ADDITIONAL FINDINGS: At herosclerotic disease is seen in the anterior and posterior circulation. IMPRESSION: 1. No focal mass, hemorrhage, hydrocephalus, or acute, large territorial infarct. Signer Name: Dawit Santos MD, III Signed: 05/13/2021 8:51 PM Workstation Name: [id number] VIEW 05/13/2021 8:58 PM INDICATION / CLINICAL INFORMATION: fever and weakness. COMPARISON: None available. FINDINGS: SUPPORT DEVICES: None. HEART / MEDIASTINUM: No significant abnormality. LUNGS / PLEURA: No significant pulm onary or pleural abnormality. No pneumothorax. ADDITIONAL FINDINGS: No significant additional findings. IMPRESSION: 1. No acute findings. Signer Name: Branden Dorado MD Signed: 05/13/2021 9:02 PM Workstation Name: [id number] Critical care attestation.: If time is entered above; I have spent that time in minutes in the direct care of this critically ill patient, excluding procedure time. ED Disposition Clinical Impression: Acute delirium, Urinary tract infection, Physical deconditioning, Leg pain, Wound of skin Disposition: 09 OP ADMIT IP TO THIS HOSP Is pt being admited?: Yes Does the pt Need Aspirin: No Condition: Fair Referrals: PRIMARY CAREMD [Primary Care Provider] - 3-5 Days
[2021-05-13 21:32] LABS: Bacteria,Urine 2+ /HPF (Negative); Bilirubin,Urine NEG (Negative); Blood,Urine MOD (Negative); Color,Urine Yellow (Yellow); Mucus,Urine FEW /HPF
[2021-05-13] MEDS ORDERED: cefTRIAXone/NS 1 GM/50 ML 1 GM/50 ML BAG IV ONE (21:52)
[2021-05-13] MEDS ORDERED: LORazepam 2 MG/ML VIAL IM STA (21:52)
[2021-05-13] MEDS ORDERED: SODIUM CHLORIDE 0.9% 1000 ML 1,000 ML IV ONE (21:53)
[2021-05-13] MEDS ORDERED: HALOPERIDOL LACTATE 5 MG/1 ML INJ IM STA (21:53)
--- NOTE | 2021-05-13 21:55 | Cat Scan Report ---
. CT head/brain wo con INDICATION / CLINICAL INFORMATION: 75 years Female; Fall and weakness. TECHNIQUE: Routine CT head without contrast. All CT scans at this location are performed using CT dos e reduction for ALARA by means of automated exposure control. COMPARISON: None. FINDINGS: BRAIN / INTRACRANIAL CONTENTS: No acute hemorrhage, mass effect, midline shift, hydrocephalus, or acu te, large territorial infarct. Mild, diffuse cerebral atrophy. There are mild areas of decreased attenuation in the white matter of the cerebral hemispheres. These are nonspecific findings and may be related to microangiopathy (hypertension, diabetes, atheroscleros is), given the patient's age. It might be difficult to evaluate for small areas of ischemia without d iffusion imaging by MRI. CRANIOCERVICAL JUNCTION: No significant abnormality. ORBITS: No significant abnormality of visualized orbits. SINUSES / MASTOIDS: Visualized paranasal sinuses and mastoid air cells are essentially clear. ADDITIONAL FINDINGS: Atherosclerotic disease is seen in the anterior and posterior circulation. IMPRESSION: 1. No focal mass, hemorrhage, hydrocephalus, or acute, large territorial infarct. Signer Name: Dawit Santos MD, III Signed: 05/13/2021 9:51 PM Workstation Name: [id number]
--- NOTE | 2021-05-13 21:57 | Cat Scan Report ---
CT ABDOMEN AND PELVIS WITHOUT CONTRAST INDICATION / CLINICAL INFORMATION: Fall, weakness, leg pain, low grade fever. TECHNIQUE: Axial CT images were obtained through the abdomen and pelvis without IV contrast. All CT scans at this location are performed using CT dose reduction for ALARA by means of automated exposure control. COMPARISON: None available. FINDINGS: LOWER CHEST: No significant abnormality. LIVER: No significant abnormality. GALLBLADDER: No significant abnormality. BILE DUCTS: No significant abnormality. PANCREAS: No significant abnormality. SPLEEN: No significant abnormality. ADRENALS: Bilateral mild nodular thickening. RIGHT KIDNEY / URETER: Nonobstructing 3 mm calculus lower pole LEFT KIDNEY / URETER: Nonobstructing 4 mm calculus upper pole. STOMACH / SMALL BOWEL: No significant abnormality. COLON: Diverticulosis without acute inflammation. APPENDIX: Not visualized. PERITONEUM: No free fluid. No free air. No fluid collection. LYMPH NODES: No significant adenopathy. AORTA / ARTERIES: Moderate atherosclerotic calcification without acute abnormality. IVC / VEINS: No significant abnormality. URINARY BLADDER: No significant abnormality. REPRODUCTIVE ORGANS: No significant abnormality. ADDITIONAL FINDINGS: Tiny fat-containing umbilical hernia. There is a metallic clip seen adjacent to the right common iliac artery. SKELETAL SYSTEM: Degenerative changes without aggressive osseous lesion. IMPRESSION: 1. No acute abnormality identified in the abdomen and pelvis. 2. Bilateral nonobstructing renal calculi. Signer Name: Branden Dorado MD Signed: 05/13/2021 9:52 PM Workstation Name: [id number]
--- NOTE | 2021-05-13 21:58 | Cat Scan Report ---
CT cervical spine wo con INDICATION / CLINICAL INFORMATION: 75 years Female; Fall and weakness. TECHNIQUE: Axial CT images of the cervical spine were obtained. Sagittal and coronal reformatted images were pr oduced. All CT scans at this location are performed using CT dose reduction for ALARA by means of aut omated exposure control. COMPARISON: None available. FINDINGS: POST-SURGICAL CHANGES: None. ALIGNMENT: No significant abnormality. VERTEBRAE: No signs of fracture. Vertebral bodies are grossly normal in height throughout. Significant osseous foraminal narrowing is seen in the left at C3-4 and C4-5 from facet hypertrophy. Mild findings on the left noted at C6-7 from uncinate hypertrophy. INTRAVERTEBRAL DISCS: Mild disc space narrowing seen at C5-6. Minimal disc disease seen at various le vels. No signs of significant canal stenosis. PARASPINAL SOFT TISSUES: No significant abnormality. ADDITIONAL FINDINGS: Atherosclerotic disease is seen to a mild degree in the anterior circulation. 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 There is partial opacification of the inferior mastoids on the right, with small air-fluid level. IMPRESSION: 1. No signs of acute bony trauma to the cervical spine. Signer Name: Dawit Santos MD, III Signed: 05/13/2021 9:54 PM Workstation Name: [email or web address]
--- NOTE | 2021-05-13 22:06 | XRay Report ---
CHEST 1 VIEW 05/13/2021 8:58 PM INDICATION / CLINICAL INFORMATION: fever and weakness. COMPARISON: None available. FINDINGS: SUPPORT DEVICES: None. HEART / MEDIASTINUM: No significant abnormality. LUNGS / PLEURA: No significant pulmonary or pleural abnormality. No pneumothorax. ADDITIONAL FINDINGS: No significant additional findings. IMPRESSION: 1. No acute findings. Signer Name: Branden Dorado MD Signed: 05/13/2021 10:02 PM Workstation Name: [id number]
--- NOTE | 2021-05-13 22:36 | XRay Report ---
PELVIS 2 VIEW(S) INDICATION / CLINICAL INFORMATION: fall leg pain . Patient cannot move right leg. COMPARISON: None available. FINDINGS: BONES / JOINT(S): No acute fracture or subluxation. No significant arthritis. Subjective osteopenia. SOFT TISSUES: No significant abnormality. ADDITIONAL FINDINGS: None. Signer Name: Patrick Miller MD Signed: 05/13/2021 10:31 PM Workstation Name: [id number]
--- NOTE | 2021-05-13 22:37 | XRay Report ---
RIGHT FEMUR 1 VIEW(S) INDICATION / CLINICAL INFORMATION: fall leg pain . Patient unable to move right leg. COMPARISON: None available. FINDINGS: Single AP view of the femur. BONES / JOINT(S): No acute fracture or subluxation. No significant arthritis. SOFT TISSUES: No focal abnormality. ADDITIONAL FINDINGS: None. Signer Name: Patrick Miller MD Signed: 05/13/2021 10:32 PM Workstation Name: [id number]
--- NOTE | 2021-05-13 22:38 | XRay Report ---
RIGHT TIBIA-FIBULA 2 VIEW(S) INDICATION / CLINICAL INFORMATION: fall leg pain . Patient unable to move the right leg. COMPARISON: None available. FINDINGS: AP view of the proximal tibia fibula with lateral view of the distal tibia fibula. BONES / JOINT(S): No acute fracture or subluxation. Probable old healed fracture of the proximal fibu la. Mild degenerative arthrosis of the right knee and right ankle joints. SOFT TISSUES: Soft tissue swelling of the lateral aspect of the knee and lower leg. ADDITIONAL FINDINGS: None. Signer Name: Patrick Miller MD Signed: 05/13/2021 10:34 PM Workstation Name: [id number]
[2021-05-13 23:50] LABS: Basophils % (Auto) 0.4 % (0.0-1.8); Eosinophils # (Auto) 0.1 K/mm3 (0.0-0.4); Eosinophils % (Auto) 1.4 % (0.0-4.3); Hematocrit 38.2 % (30.3-42.9); Lymphocytes # (Auto) 1.6 K/mm3 (1.2-5.4); Lymphocytes % (Auto) 17.7 % (13.4-35.0); Mean Corpuscular HGB Conc 34 % (30-34); Mean Corpuscular Volume 94 fl (79-97); Monocytes # (Auto) 0.9 K/mm3 (0.0-0.8); Monocytes % (Auto) 9.5 % (0.0-7.3); Platelet Count 209 K/mm3 (140-440); Red Blood Count 4.07 M/mm3 (3.65-5.03)
[2021-05-14 00:05] LABS: Alanine Aminotransferase 15 units/L (7-56); Albumin 3.1 g/dL (3.9-5); BUN/Creatinine Ratio 17; Blood Urea Nitrogen 15 mg/dL (7-17); Calcium 8.3 mg/dL (8.4-10.2); Hemolysis Index 2
[2021-05-14 00:06] LABS: INR 1.12 (0.87-1.13)
[2021-05-14 00:08] LABS: Partial Thromboplastin Time 53.7 Sec. (24.2-36.6)
[2021-05-14] MEDS ORDERED: MAGNESIUM HYDROXIDE (MOM) ORAL LIQD UDC PO PRN (00:26)
[2021-05-14] MEDS ORDERED: DEXTROSE 50% IN WATER (25GM) 50 ML SYRINGE IV PRN (00:26)
[2021-05-14] MEDS ORDERED: ONDANSETRON 4 MG/2 ML INJ IV PRN (00:26)
[2021-05-14] MEDS ORDERED: ACETAMINOPHEN 325 MG TAB PO PRN (00:26)
[2021-05-14] MEDS ORDERED: MORPHINE 4 MG/1 ML INJ IV PRN (00:26)
--- NOTE | 2021-05-14 00:40 | History and Physical Report ---
History of Present Illness Date of examination: 05/14/21 Date of admission: 05/14/2021 Chief complaint: Generalized weakness History of present illness: 75-year-old female with significant past medical history of hypertension, diabetes mellitus, history of schizophrenia brought into the emergency room by EMS with a complaint of generalized weakness. According to EMS, patient was said to have had a mechanical fall about a week ago and has been lying down in bed at home. She denies any headache or dizziness, no neck pain, no nausea vomiting, no chest pain or shortness of breath, no abdominal pain, no hematuria or dysuria, no bright red blood per rectum. No bladder or fecal incontinence. However EMS indicates that patient was soiled with fecal material upon their arrival. Patient denies any sick contacts and no recent travel. Denies any contact with anyone with COVID-19. Work-up in the emergency room today, chest x-ray, CT scan of the head and neck w ere unremarkable. CT scan of the abdomen and pelvis reveals bilateral nonobstructing renal calculi.Urinalysis significant for UTI. Patient being admitted with altered mental status possibly secondary to UTI. Past History Past Medical History: diabetes, hypertension, other (Anxiety Schizophrenia,Peripheral neuropathy) Past Surgical History: appendectomy, cholecystectomy Social history: lives with family Family history: no significant family history Medications and Allergies Allergies Allergy/AdvReac Type Severity Reaction Status Date / Time No Known Allergies Allergy Verified 01/19/19 11:38 Home Medications Medication Instructions Recorded Confirmed Last Taken Type metFORMIN [Glucophage] 500 mg PO BID 04/06/15 11/08/20 3 Days Ago History ~08/11/20 Losartan Potassium 50 mg PO DAILY 01/19/19 11/08/20 3 Days Ago History ~08/11/20 Lispro Insulin [HumaLOG] 0 unit SUB-Q ACHS units 01/25/19 11/08/20 3 Days Ago Rx ~08/11/20 risperiDONE [RisperDAL] 2 mg PO QAM #60 tablet 01/25/19 11/08/20 3 Days Ago Rx ~08/11/20 risperiDONE [RisperDAL] 3 mg PO QHS #30 tablet 01/25/19 11/08/20 1 Day Ago Rx ~08/13/20 traZODone [Desyrel] 50 mg PO QHS PRN #30 tablet 01/25/19 11/08/20 3 Days Ago Rx ~08/11/[address] [Dee MCNEAL] 500 mg PO BID 30 Days #60 tablet 11/19/20 Unknown Rx OLANzapine [ZyPREXA] 5 mg PO QHS #30 tablet 11/19/20 Unknown Rx Active Meds: Active Medications Acetaminophen (Acetaminophen 325 Mg Tab) 650 mg PO Q4H PRN PRN Reason: Pain MILD(1-3)/Fever >100.5/MAZARIEGOS Hydrocodone Bitart/Acetaminophen (Hydrocodone/Acetaminophen 5-325 Mg Tab) 2 each PO Q6H PRN PRN Reason: Pain, Moderate (4-6) Dextrose (Dextrose 50% In Water (25gm) 50 Ml Syringe) 50 ml IV Q30MIN PRN; Protocol PRN Reason: Hypoglycemia Enoxaparin Sodium (Enoxaparin 40 Mg/0.4 Ml Inj) 40 mg SUB-Q QDAY@2200 NANCY; Protocol Sodium Chloride (Nacl 0.9% 1000 Ml) 1,000 mls @ 125 mls/hr IV DIRECT NANCY Insulin Human Regular (Insulin Regular, Human 100 Units/1 Ml) 0 units SUB-Q ACHS NANCY; Protocol Magnesium Hydroxide (Magnesium Hydroxide (Mom) Oral Liqd Udc) 30 ml PO Q4H PRN PRN Reason: Constipation Morphine Sulfate (Morphine 4 Mg/1 Ml Inj) 4 mg IV Q4H PRN PRN Reason: Pain , Severe (7-10) Ondansetron HCl (Ondansetron 4 Mg/2 Ml Inj) 4 mg IV Q8H PRN PRN Reason: Nausea And Vomiting Sodium Chloride (Sodium Chloride 0.9% 10 Ml Flush Syringe) 10 ml IV BID NANCY Sodium Chloride (Sodium Chloride 0.9% 10 Ml Flush Syringe) 10 ml IV PRN PRN PRN Reason: LINE FLUSH Review of Systems Constitutional: no fever, no chills Ears, nose, mouth and throat: no nasal congestion, no sore throat Cardiovascular: no chest pain, no palpitations Respiratory: no cough, no shortness of breath Gastrointestinal: no abdominal pain, no nausea, no vomiting, no diarrhea Genitourinary Female: no flank pain, no dysuria, no hematuria Musculoskeletal: no neck pain, no low back pain Integumentary: no rash, no pruritis Neurological: confusion, no headaches Psychiatric: no anxiety, no depression Endocrine: no polyphagia, no polydipsia, no polyuria, no nocturia Exam - Constitutional Vitals: Temp Pulse Resp BP Pulse Ox 98.2 F 89 24 119/57 98 05/13/21 20:33 05/13/21 22:30 05/13/21 22:30 05/13/21 22:30 05/13/21 22:30 General appearance: Present: no acute distress, well-nourished - EENT Eyes: Present: PERRL, EOM intact. Absent: scleral icterus ENT: hearing intact, clear oral mucosa, dentition normal - Neck Neck: Present: supple, normal ROM - Respiratory Respiratory effort: normal Respiratory: bilateral: CTA - Cardiovascular Rhythm: regular Heart Sounds: Present: S1 & S2. Absent: gallop, systolic murmur, diastolic murmur, rub, click - Extremities Extremities: no ischemia, pulses intact, pulses symmetrical, No edema, normal temperature, normal color, Full ROM Peripheral Pulses: within normal limits - Abdominal General gastrointestinal: Present: soft, non-tender, non-distended, normal bowel sounds. Absent: mass - Integumentary Integumentary: Present: clear, warm, dry. Absent: rash - Musculoskeletal Musculoskeletal: strength equal bilaterally - Psychiatric Psychiatric: appropriate mood/affect, intact judgment & insight, memory intact, cooperative - Neurologic Neurologic: CNII-XII intact, no focal deficits, moves all extremities - Additional findings Additional findings: Multiple sacral decubitus-stage 2 HEART Score - HEART Score Troponin: Troponin T 0.011 ng/mL (0.00-0.029) 05/13/21 23:23 Results - Labs CBC & Chem 7: 05/13/21 23:23 05/13/21 23:23 Labs: Abnormal lab results 05/13/21 05/13/21 05/13/21 Range/Units 23:23 23:23 23:23 [place] % (Auto) 9.5 H (0.0-7.3) % [place] # (Auto) 0.9 H (0.0-0.8) K/mm3 Seg Neutrophils % 71.0 H (40.0-70.0) % APTT 53.7 H (24.2-36.6) Sec. Glucose 128 H (65-100) mg/dL Calcium 8.3 L (8.4-10.2) mg/dL Ammonia (25-60) umol/L Total Protein 5.8 L (6.3-8.2) g/dL Albumin 3.1 L (3.9-5) g/dL Urine WBC (Auto) (0.0-6.0) /HPF Valproic Acid (50-100) ug/mL 05/13/21 05/13/21 05/13/21 Range/Units 23:23 23:23 Unknown [place] % (Auto) (0.0-7.3) % [place] # (Auto) (0.0-0.8) K/mm3 Seg Neutrophils % (40.0-70.0) % APTT (24.2-36.6) Sec. Glucose (65-100) mg/dL Calcium (8.4-10.2) mg/dL Ammonia 15.0 L (25-60) umol/L Total Protein (6.3-8.2) g/dL Albumin (3.9-5) g/dL Urine WBC (Auto) 20.0 H (0.0-6.0) /HPF Valproic Acid < 2.8 L (50-100) ug/mL Assessment and Plan - Patient Problems (1) Urinary tract infection Current Visit: Yes Status: Acute Plan to address problem: Patient started on empiric IV antibiotics. We will await urine culture result. (2) Acute delirium Current Visit: Yes Status: Acute Plan to address problem: Possibly secondary to the underlying infection. Will monitor mental status. (3) Diabetes mellitus Current Visit: Yes Status: Acute Plan to address problem: We will monitor Accu-Cheks closely. (4) Hypertension Current Visit: Yes Status: Acute Plan to address problem: We will monitor vital signs closely and continue routine home medications. (5) History of schizophrenia Current Visit: Yes Status: Acute Plan to address problem: We will resume routine home medications once reconciled. (6) Physical deconditioning Current Visit: Yes Status: Acute Plan to address problem: We will place consult to physical therapy for evaluation. (7) DVT prophylaxis Current Visit: Yes Status: Acute Plan to address problem: Patient placed on subcutaneous lovenox. (8) Full code status Current Visit: Yes Status: Acute Plan to address problem: Patient is full code.
[2021-05-14] MEDS ORDERED: traZODone 50 MG TAB PO PRN (04:07)
[2021-05-14] MEDS: INSULIN REGULAR, HUMAN 100 UNITS/1 ML SUB-Q SCH ×4 (07:59→22:57)
--- NOTE | 2021-05-14 10:15 | Progress Note ---
Assessment and Plan Assessment and Plan - Patient Problems (1) Urinary tract infection Current Visit: Yes Status: Acute Plan to address problem: Patient started on empiric IV antibiotics. We will await urine culture result. (2) Acute delirium Current Visit: Yes Status: Acute Plan to address problem: Possibly secondary to the underlying infection. Will monitor mental status. (3) Diabetes mellitus Current Visit: Yes Status: Acute Plan to address problem: We will monitor Accu-Cheks closely. (4) Hypertension Current Visit: Yes Status: Acute Plan to address problem: We will monitor vital signs closely and continue routine home medications. (5) History of schizophrenia Current Visit: Yes Status: Acute Plan to address problem: We will resume routine home medications once reconciled. (6) Physical deconditioning Current Visit: Yes Status: Acute Plan to address problem: We will place consult to physical therapy for evaluation. (7) DVT prophylaxis Current Visit: Yes Status: Acute Plan to address problem: Patient placed on subcutaneous lovenox. (8) Full code status Current Visit: Yes Status: Acute Plan to address problem: Patient is full code. - Patient Problems (1) DVT prophylaxis Current Visit: Yes Status: Acute Subjective Date of service: 05/15/21 Objective - Constitutional Vitals: Vital Signs - 12hr 05/13/21 05/13/21 05/13/21 22:16 22:30 22:32 Pulse Rate 85 89 87 Respiratory 14 24 23 Rate Blood Pressure 119/57 119/57 O2 Sat by Pulse 98 98 98 Oximetry 05/13/21 05/13/21 05/13/21 22:46 23:00 23:16 Pulse Rate 88 92 H 91 H Respiratory 29 H 24 22 Rate Blood Pressure 119/57 119/58 119/58 O2 Sat by Pulse 96 95 95 Oximetry 05/13/21 05/13/21 05/14/21 23:30 23:46 00:00 Pulse Rate 95 H 94 H 93 H Respiratory 28 H 20 19 Rate Blood Pressure 112/57 112/57 118/62 O2 Sat by Pulse 95 96 94 Oximetry 05/14/21 05/14/21 05/14/21 00:16 00:30 00:42 Pulse Rate 85 80 Respiratory 25 H 25 H 20 Rate Blood Pressure 118/62 111/55 O2 Sat by Pulse 94 95 95 Oximetry 05/14/21 05/14/21 05/14/21 00:46 01:00 01:16 Pulse Rate 78 80 80 Respiratory 27 H 25 H 23 Rate Blood Pressure 111/55 115/60 115/60 O2 Sat by Pulse 95 94 94 Oximetry 05/14/21 05/14/21 05/14/21 01:30 01:46 02:00 Pulse Rate 74 75 75 Respiratory 24 23 21 Rate Blood Pressure 101/55 101/55 101/56 O2 Sat by Pulse 95 94 96 Oximetry 05/14/21 05/14/21 05/14/21 02:16 02:30 02:46 Pulse Rate 75 77 76 Respiratory 23 25 H 25 H Rate Blood Pressure 101/55 117/57 117/57 O2 Sat by Pulse 95 96 96 Oximetry 05/14/21 05/14/21 05/14/21 03:00 03:16 03:30 Pulse Rate 77 76 71 Respiratory 25 H 22 23 Rate Blood Pressure 111/55 111/55 99/55 O2 Sat by Pulse 95 96 96 Oximetry 05/14/21 05/14/21 05/14/21 03:46 04:00 04:16 Pulse Rate 72 71 71 Respiratory 21 22 25 H Rate Blood Pressure 99/55 107/56 107/56 O2 Sat by Pulse 96 97 96 Oximetry 05/14/21 05/14/21 05/14/21 04:30 04:46 05:00 Pulse Rate 74 71 70 Respiratory 22 20 23 Rate Blood Pressure 117/56 117/56 119/63 O2 Sat by Pulse 96 97 96 Oximetry 05/14/21 08:00 Pulse Rate 81 Respiratory 16 Rate Blood Pressure 121/64 O2 Sat by Pulse 94 Oximetry General appearance: Present: no acute distress, well-nourished - EENT Eyes: PERRL, EOM intact ENT: hearing intact, clear oral mucosa Ears: bilateral: normal - Neck Neck: supple, normal ROM - Respiratory Respiratory effort: normal Respiratory: bilateral: CTA - Breasts Breasts: normal - Cardiovascular Rhythm: regular Heart Sounds: Present: S1 & S2. Absent: gallop, rub Extremities: pulses intact, No edema, normal color, Full ROM - Gastrointestinal General gastrointestinal: Present: soft, non-tender, non-distended, normal bowel sounds - Genitourinary Female genitourinary: normal - Integumentary Integumentary: clear, warm, dry - Musculoskeletal Musculoskeletal: 1, strength equal bilaterally - Neurologic Neurologic: moves all extremities - Psychiatric Psychiatric: memory intact, appropriate mood/affect, intact judgment & insight - Labs CBC & Chem 7: 05/15/21 04:25 05/15/21 04:25 Labs: Abnormal lab results 05/13/21 05/13/21 05/13/21 Range/Units 23:23 23:23 23:23 [place] % (Auto) 9.5 H (0.0-7.3) % [place] # (Auto) 0.9 H (0.0-0.8) K/mm3 Seg Neutrophils % 71.0 H (40.0-70.0) % APTT 53.7 H (24.2-36.6) Sec. Glucose 128 H (65-100) mg/dL POC Glucose (70-105) mg/dL Calcium 8.3 L (8.4-10.2) mg/dL Ammonia (25-60) umol/L Total Protein 5.8 L (6.3-8.2) g/dL Albumin 3.1 L (3.9-5) g/dL Urine WBC (Auto) (0.0-6.0) /HPF Valproic Acid (50-100) ug/mL 05/13/21 05/13/21 05/13/21 Range/Units 23:23 23:23 Unknown [place] % (Auto) (0.0-7.3) % [place] # (Auto) (0.0-0.8) K/mm3 Seg Neutrophils % (40.0-70.0) % APTT (24.2-36.6) Sec. Glucose (65-100) mg/dL POC Glucose (70-105) mg/dL Calcium (8.4-10.2) mg/dL Ammonia 15.0 L (25-60) umol/L Total Protein (6.3-8.2) g/dL Albumin (3.9-5) g/dL Urine WBC (Auto) 20.0 H (0.0-6.0) /HPF Valproic Acid < 2.8 L (50-100) ug/mL 05/14/21 Range/Units 07:23 [place] % (Auto) (0.0-7.3) % [place] # (Auto) (0.0-0.8) K/mm3 Seg Neutrophils % (40.0-70.0) % APTT (24.2-36.6) Sec. Glucose (65-100) mg/dL POC Glucose 121 H (70-105) mg/dL Calcium (8.4-10.2) mg/dL Ammonia (25-60) umol/L Total Protein (6.3-8.2) g/dL Albumin (3.9-5) g/dL Urine WBC (Auto) (0.0-6.0) /HPF Valproic Acid (50-100) ug/mL HEART Score - HEART Score Troponin: Troponin T 0.011 ng/mL (0.00-0.029) 05/13/21 23:23
[2021-05-14] MEDS: DIVALPROEX DR 500 MG TAB PO SCH ×2 (11:09→22:49)
[2021-05-14] MEDS: risperiDONE 1 MG TAB PO SCH (11:09)
--- NOTE | 2021-05-14 18:09 | Electrocardiograph Report ---
Test Date: 2021-05-13 Test Time: 21:03:42 Pat Name: SAMUEL CAMARGO Department: Room: [place] [address] Gender: F Bran [employer]er: NT : 1945 Requested By: KEN CAMILO Order Number: [id number] Reading MD: Jerrod Ferguson Measurements Intervals [place] Rate: 76 P: 55 DC: 157 QRS: 45 QRSD: 87 T: 49 QT: 355 QTc: 401 Interpretive Statements Sinus rhythm No previous ECG available for comparison Electronically Signed On 05-14-2021 18:09:13 EDT by Jerrod Ferguson
[2021-05-14] MEDS: ENOXAPARIN 40 MG/0.4 ML INJ SUB-Q SCH (22:49)
[2021-05-15] MEDS: risperiDONE 3 MG TAB PO SCH ×2 (00:01→22:44)
[2021-05-15 05:07] LABS: Basophils % (Auto) 0.6 % (0.0-1.8); Eosinophils # (Auto) 0.2 K/mm3 (0.0-0.4); Eosinophils % (Auto) 2.5 % (0.0-4.3); Hematocrit 35.2 % (30.3-42.9); Hemoglobin 12.1 gm/dl (10.1-14.3); Lymphocytes # (Auto) 2.3 K/mm3 (1.2-5.4); Lymphocytes % (Auto) 32.6 % (13.4-35.0); Mean Corpuscular HGB Conc 34 % (30-34); Mean Corpuscular Volume 93 fl (79-97); Monocytes # (Auto) 0.6 K/mm3 (0.0-0.8); Platelet Count 197 K/mm3 (140-440); Red Blood Count 3.79 M/mm3 (3.65-5.03)
[2021-05-15 05:13] LABS: INR 1.13 (0.87-1.13)
[2021-05-15 05:26] LABS: BUN/Creatinine Ratio 16; Blood Urea Nitrogen 13 mg/dL (7-17); Calcium 8.7 mg/dL (8.4-10.2); Hemolysis Index 4
[2021-05-15] MEDS: SODIUM CHLORIDE 0.9% 1000 ML 1,000 ML IV SCH (06:57)
[2021-05-15] MEDS: INSULIN REGULAR, HUMAN 100 UNITS/1 ML SUB-Q SCH ×3 (09:04→17:05)
[2021-05-15] MEDS: risperiDONE 1 MG TAB PO SCH (12:07)
[2021-05-15] MEDS: DIVALPROEX DR 500 MG TAB PO SCH ×2 (12:08→22:44)
[2021-05-15] MEDS: cefTRIAXone/NS 1 GM/50 ML 1 GM/50 ML BAG IV SCH (15:00)
[2021-05-15] MEDS: HYDROcodone/ACETAMINOPHEN 5-325 MG TAB PO PRN (17:10)
--- NOTE | 2021-05-15 17:24 | Progress Note ---
Assessment and Plan Assessment and Plan - Patient Problems (1) Urinary tract infection Current Visit: Yes Status: Acute Plan to address problem: Patient started on empiric IV antibiotics. We will await urine culture result. (2) Acute delirium Current Visit: Yes Status: Acute Plan to address problem: Possibly secondary to the underlying infection. Will monitor mental status. (3) Diabetes mellitus Current Visit: Yes Status: Acute Plan to address problem: We will monitor Accu-Cheks closely. (4) Hypertension Current Visit: Yes Status: Acute Plan to address problem: We will monitor vital signs closely and continue routine home medications. (5) History of schizophrenia Current Visit: Yes Status: Acute Plan to address problem: We will resume routine home medications once reconciled. (6) Physical deconditioning Current Visit: Yes Status: Acute Plan to address problem: We will place consult to physical therapy for evaluation. (7) DVT prophylaxis Current Visit: Yes Status: Acute Plan to address problem: Patient placed on subcutaneous lovenox. (8) Full code status Current Visit: Yes Status: Acute Plan to address problem: Patient is full code. - Patient Problems (1) DVT prophylaxis Current Visit: Yes Status: Acute Subjective Date of service: 05/15/21 Objective - Constitutional Vitals: Vital Signs - 12hr 05/15/21 07:39 Temperature 98.7 F Pulse Rate 70 Respiratory 20 Rate Blood Pressure 117/48 O2 Sat by Pulse 96 Oximetry General appearance: Present: no acute distress, well-nourished - EENT Eyes: PERRL, EOM intact ENT: hearing intact, clear oral mucosa Ears: bilateral: normal - Neck Neck: supple, normal ROM - Respiratory Respiratory effort: normal Respiratory: bilateral: CTA - Breasts Breasts: normal - Cardiovascular Rhythm: regular Heart Sounds: Present: S1 & S2. Absent: gallop, rub Extremities: pulses intact, No edema, normal color, Full ROM - Gastrointestinal General gastrointestinal: Present: soft, non-tender, non-distended, normal bowel sounds - Genitourinary Female genitourinary: normal - Integumentary Integumentary: clear, warm, dry - Musculoskeletal Musculoskeletal: 1, strength equal bilaterally - Neurologic Neurologic: moves all extremities - Psychiatric Psychiatric: memory intact, appropriate mood/affect, intact judgment & insight - Labs CBC & Chem 7: 05/15/21 04:25 05/15/21 04:25 Labs: Abnormal lab results 05/14/21 05/15/21 05/15/21 Range/Units 21:27 04:25 04:25 [place] % (Auto) 9.0 H (0.0-7.3) % PT 15.0 H (12.2-14.9) Sec. Glucose (65-100) mg/dL POC Glucose 145 H (70-105) mg/dL 05/15/21 05/15/21 05/15/21 Range/Units 04:25 07:38 16:18 [place] % (Auto) (0.0-7.3) % PT (12.2-14.9) Sec. Glucose 125 H (65-100) mg/dL POC Glucose 112 H 134 H (70-105) mg/dL HEART Score - HEART Score Troponin: Troponin T 0.011 ng/mL (0.00-0.029) 05/13/21 23:23
[2021-05-15] MEDS: ENOXAPARIN 40 MG/0.4 ML INJ SUB-Q SCH (22:44)
[2021-05-16] MEDS: INSULIN REGULAR, HUMAN 100 UNITS/1 ML SUB-Q SCH ×4 (03:12→16:32)
[2021-05-16] MEDS: SODIUM CHLORIDE 0.9% 1000 ML 1,000 ML IV SCH (03:13)
[2021-05-16] MEDS: DIVALPROEX DR 500 MG TAB PO SCH ×2 (10:45→21:23)
[2021-05-16] MEDS: risperiDONE 1 MG TAB PO SCH (10:45)
[2021-05-16] MEDS: HYDROcodone/ACETAMINOPHEN 5-325 MG TAB PO PRN (10:57)
[2021-05-16] MEDS: cefTRIAXone/NS 1 GM/50 ML 1 GM/50 ML BAG IV SCH (16:32)
[2021-05-16] MEDS: ENOXAPARIN 40 MG/0.4 ML INJ SUB-Q SCH (21:23)
[2021-05-16] MEDS: risperiDONE 3 MG TAB PO SCH (21:24)
[2021-05-17] MEDS: INSULIN REGULAR, HUMAN 100 UNITS/1 ML SUB-Q SCH ×6 (06:06→23:50)
--- NOTE | 2021-05-17 07:33 | Progress Note ---
Assessment and Plan Assessment and Plan - Patient Problems (1) Urinary tract infection Current Visit: Yes Status: Acute Plan to address problem: Improved (2) Acute encephalopathy Current Visit: Yes Status: Acute Plan to address problem: Improved (3) Diabetes mellitus Current Visit: Yes Status: Acute Plan to address problem: We will monitor Accu-Cheks closely. (4) Hypertension Current Visit: Yes Status: Acute Plan to address problem: Under control (5) History of schizophrenia Current Visit: Yes Status: Acute Plan to address problem: Stable (6) Physical deconditioning Current Visit: Yes Status: Acute Plan to address problem: Patient needs acute rehab/snf facility placement To follow physical therapy recommendations and acute rehab consultation (7) DVT prophylaxis Current Visit: Yes Status: Acute Plan to address problem: Patient placed on subcutaneous lovenox. (8) Full code status Current Visit: Yes Status: Acute Plan to address problem: Patient is full code. Disposition Waiting for snf facility/acute rehab placement Otherwise stable to be discharged Subjective Date of service: 05/16/21 Principal diagnosis: Severe debility, UTI Interval history: 75-year-old female with significant past medical history of hypertension, di abetes mellitus, history of schizophrenia brought into the emergency room by EMS with a complaint of generalized weakness. According to EMS, patient was said to have had a mechanical fall about a week ago and has been lying down in bed at home. She denies any headache or dizziness, no neck pain, no nausea vomiting, no chest pain or shortness of breath, no abdominal pain, no hematuria or dysuria, no bright red blood per rectum. No bladder or fecal incontinence. However EMS indicates that patient was soiled with fecal material upon their arrival. Patient denies any sick contacts and no recent travel. Denies any contact with anyone with COVID-19. Work-up in the emergency room today, chest x-ray, CT scan of the head and neck were unremarkable. CT scan of the abdomen and pelvis reveals bilateral nonobstructing renal calculi.Urinalysis significant for UTI. Patient being admitted with altered mental status possibly secondary to UTI. 05/16/2021 Altered mental status and UTI improved Waiting for acute rehab/SNF placement Cannot walk Bedridden Objective - Constitutional Vitals: Vital Signs - 12hr 05/16/21 05/16/21 05/16/21 19:36 21:00 22:00 Temperature 98.0 F Pulse Rate 87 Respiratory 18 16 Rate Respiratory 17 Rate [Bilateral Lower Leg] Blood Pressure 139/66 O2 Sat by Pulse 97 98 Oximetry 05/16/21 05/17/21 23:46 05:37 Temperature 97.9 F 98.8 F Pulse Rate 80 74 Respiratory 18 19 Rate Respiratory Rate [Bilateral Lower Leg] Blood Pressure 143/63 127/53 O2 Sat by Pulse 95 95 Oximetry General appearance: Present: no acute distress, well-nourished - EENT Eyes: PERRL, EOM intact ENT: hearing intact, clear oral mucosa Ears: bilateral: normal - Neck Neck: supple, normal ROM - Respiratory Respiratory effort: normal Respiratory: bilateral: CTA - Breasts Breasts: normal - Cardiovascular Heart rate: 78 Rhythm: regular Heart Sounds: Present: S1 & S2. Absent: gallop, rub Extremities: pulses intact, No edema, normal color, Full ROM - Gastrointestinal General gastrointestinal: Present: soft, non-tender, non-distended, normal bowel sounds - Genitourinary Female genitourinary: normal - Integumentary Integumentary: clear, warm, dry - Musculoskeletal Musculoskeletal: strength equal bilaterally, generalized weakness - Neurologic Neurologic: moves all extremities, other (Cannot walk) - Psychiatric Psychiatric: memory intact, appropriate mood/affect, intact judgment & insight - Labs CBC & Chem 7: 05/15/21 04:25 05/15/21 04:25 Labs: Abnormal lab results 05/16/21 05/16/21 Range/Units 11:09 16:22 POC Glucose 140 H 126 H (70-105) mg/dL HEART Score - HEART Score Troponin: Troponin T 0.011 ng/mL (0.00-0.029) 05/13/21 23:23
--- NOTE | 2021-05-17 11:08 | Progress Note ---
Assessment and Plan Assessment and plan: -- Urinary tract infection Current Visit: Yes Status: Acute Improved -- Acute encephalopathy Current Visit: Yes Status: Acute Improved -- Diabetes mellitus Current Visit: Yes Status: Acute We will monitor Accu-Cheks closely. --Hypertension Current Visit: Yes Status: Acute Moderate control, continue current antihypertensives --History of schizophrenia Current Visit: Yes Status: Acute Stable --Physical deconditioning Current Visit: Yes Status: Acute PT OT recommend subacute rehab versus SNF CM processing the paperwork --DVT prophylaxis Current Visit: Yes Status: Acute Patient placed on subcutaneous lovenox. --Full code status Current Visit: Yes Status: Acute Patient is full code. Disposition Waiting for care home facility/acute rehab placement Pending Covid 19 test . Possible discharge tomorrow if stable Subjective Date of service: 05/16/21 Principal diagnosis: Severe debility, UTI Interval history: 75-year-old female with significant past medical history of hypertension, diabetes mellitus, history of schizophrenia brought into the emergency room by EMS with a complaint of generalized weakness. According to EMS, patient was said to have had a mechanical fall about a week ago and has been lying down in bed at home. She denies any headache or dizziness, no neck pain, no nausea vomiting, no chest pain or shortness of breath, no abdominal pain, no hematuria or dysuria, no bright red blood per rectum. No bladder or fecal incontinence. However EMS indicates that patient was soiled with fecal material upon their arrival. Patient denies any sick contacts and no recent travel. Denies any contact with anyone with COVID-19. Work-up in the emergency room today, chest x-ray, CT scan of the head and neck were unremarkable. CT scan of the abdomen and pelvis reveals bilateral nonobstructing renal calculi.Urinalysis significant for UTI. Patient being admitted with altered mental status possibly secondary to UTI. 05/16/2021 Altered mental status and UTI improved Waiting for acute rehab/SNF placement Cannot walk Bedridden 05/17/2021; Awaiting placement subacute versus SNF DC planning per case management History Interval history: I have seen and examined the patient at the bedside Patient's chart and medications reviewed Patient feels slightly better No new complaints Vital signs noted Hospitalist Physical - Constitutional Vitals: Temp Pulse Resp BP Pulse Ox 98.2 F 88 20 156/72 97 05/17/21 08:05 05/17/21 08:03 05/17/21 08:05 05/17/21 08:03 05/17/21 08:03 General appearance: Present: no acute distress, well-nourished - EENT Eyes: Present: PERRL, EOM intact - Neck Neck: Present: supple, normal ROM - Respiratory Respiratory effort: normal Respiratory: bilateral: diminished, negative: rales, rhonchi, wheezing - Cardiovascular Rhythm: regular Heart Sounds: Present: S1 & S2 - Extremities Extremities: no ischemia, No edema - Abdominal General gastrointestinal: soft, non-tender, non-distended, normal bowel sounds - Integumentary Integumentary: Present: clear, warm - Psychiatric Psychiatric: appropriate mood/affect, cooperative - Neurologic Neurologic: CNII-XII intact, moves all extremities HEART Score - HEART Score Troponin: Troponin T 0.011 ng/mL (0.00-0.029) 05/13/21 23:23 Results - Labs CBC & Chem 7: 05/15/21 04:25 05/15/21 04:25 Labs: Laboratory Last Values WBC 7.2 K/mm3 (4.5-11.0) 05/15/21 04:25 RBC 3.79 M/mm3 (3.65-5.03) 05/15/21 04:25 Hgb 12.1 gm/dl (10.1-14.3) 05/15/21 04:25 Hct 35.2 % (30.3-42.9) 05/15/21 04:25 MCV 93 fl (79-97) 05/15/21 04:25 MCH 32 pg (28-32) 05/15/21 04:25 MCHC 34 % (30-34) 05/15/21 04:25 RDW 14.0 % (13.2-15.2) 05/15/21 04:25 Plt Count 197 K/mm3 (140-440) 05/15/21 04:25 Lymph % (Auto) 32.6 % (13.4-35.0) 05/15/21 04:25 [place] % (Auto) 9.0 % (0.0-7.3) H 05/15/21 04:25 Eos % (Auto) 2.5 % (0.0-4.3) 05/15/21 04:25 Baso % (Auto) 0.6 % (0.0-1.8) 05/15/21 04:25 Lymph # (Auto) 2.3 K/mm3 (1.2-5.4) 05/15/21 04:25 [place] # (Auto) 0.6 K/mm3 (0.0-0.8) 05/15/21 04:25 Eos # (Auto) 0.2 K/mm3 (0.0-0.4) 05/15/21 04:25 Baso # (Auto) 0.0 K/mm3 (0.0-0.1) 05/15/21 04:25 Seg Neutrophils % 55.3 % (40.0-70.0) 05/15/21 04:25 Seg Neutrophils # 4.0 K/mm3 (1.8-7.7) 05/15/21 04:25 PT 15.0 Sec. (12.2-14.9) H 05/15/21 04:25 INR 1.13 (0.87-1.13) 05/15/21 04:25 APTT 53.7 Sec. (24.2-36.6) H 05/13/21 23:23 Sodium 139 mmol/L (137-145) 05/15/21 04:25 Potassium 3.6 mmol/L (3.6-5.0) 05/15/21 04:25 Chloride 104.3 mmol/L (98-107) 05/15/21 04:25 Carbon Dioxide 27 mmol/L (22-30) 05/15/21 04:25 Anion Gap 11 mmol/L 05/15/21 04:25 BUN 13 mg/dL (7-17) 05/15/21 04:25 Creatinine 0.8 mg/dL (0.6-1.2) 05/15/21 04:25 Estimated GFR > 60 ml/min 05/15/21 04:25 BUN/Creatinine Ratio 16 % 05/15/21 04:25 Glucose 125 mg/dL (65-100) H 05/15/21 04:25 POC Glucose 131 mg/dL (70-105) H 05/17/21 10:59 Lactic Acid 1.30 mmol/L (0.7-2.0) 05/13/21 23:23 Calcium 8.7 mg/dL (8.4-10.2) 05/15/21 04:25 Magnesium 1.70 mg/dL (1.7-2.3) 05/13/21 23:23 Total Bilirubin 0.60 mg/dL (0.1-1.2) 05/13/21 23:23 AST 14 units/L (5-40) 05/13/21 23:23 ALT 15 units/L (7-56) 05/13/21 23:23 Alkaline Phosphatase 64 units/L (35-129) 05/13/21 23:23 Ammonia 15.0 umol/L (25-60) L 05/13/21 23:23 Total Creatine Kinase 95 units/L (30-135) 05/13/21 23:23 Troponin T 0.011 ng/mL (0.00-0.029) 05/13/21 23:23 Total Protein 5.8 g/dL (6.3-8.2) L 05/13/21 23:23 Albumin 3.1 g/dL (3.9-5) L 05/13/21 23:23 Albumin/Globulin Ratio 1.1 % 05/13/21 23:23 TSH 1.920 mlU/mL (0.270-4.200) 05/13/21 23:23 Urine Color Yellow (Yellow) 05/13/21 Unknown Urine Turbidity Slightly-cloudy (Clear) 05/13/21 Unknown Urine pH 6.0 (5.0-7.0) 05/13/21 Unknown Ur Specific [place] 1.017 (1.003-1.030) 05/13/21 Unknown Urine Protein 30 mg/dl mg/dL (Negative) 05/13/21 Unknown Urine Glucose (UA) >=500 mg/dL (Negative) 05/13/21 Unknown Urine Ketones Tr mg/dL (Negative) 05/13/21 Unknown Urine Blood Mod (Negative) 05/13/21 Unknown Urine Nitrite Neg (Negative) 05/13/21 Unknown Urine Bilirubin Neg (Negative) 05/13/21 Unknown Urine Urobilinogen 2.0 mg/dL (<2.0) 05/13/21 Unknown Ur Leukocyte Esterase Mod (Negative) 05/13/21 Unknown Urine WBC (Auto) 20.0 /HPF (0.0-6.0) H 05/13/21 Unknown Urine RBC (Auto) 9.0 /HPF (0.0-6.0) 05/13/21 Unknown U Epithel Cells (Auto) 8.0 /HPF (0-13.0) 05/13/21 Unknown Urine Bacteria (Auto) 2+ /HPF (Negative) 05/13/21 Unknown Urine Mucus Few /HPF 05/13/21 Unknown Urine Yeast (Budding) Few /HPF 05/13/21 Unknown Valproic Acid < 2.8 ug/mL (50-100) L 05/13/21 23:23 Microbiology: Microbiology 05/13/21 23:24 Peripheral/Venous Blood Culture - Preliminary NO GROWTH AFTER 72 HOURS 05/13/21 23:23 Peripheral/Venous Blood Culture - Preliminary NO GROWTH AFTER 72 HOURS 05/13/21 Unknown Urine,Catheterized - Straight Catheter Urine Culture - Final Wiseman/IV: Voiding Method External Female Catheter Active Medications - Current Medications Current Medications: Generic Name Dose Route Start Last Admin Trade Name Freq PRN Reason Stop Dose Admin Acetaminophen 650 mg 05/14/21 00:26 Acetaminophen 325 Mg Tab PO Q4H PRN Pain MILD(1-3)/Fever >100.5/MAZARIEGOS Hydrocodone Bitart/Acetaminophen 2 each 05/14/21 00:26 05/16/21 10:57 Hydrocodone/Acetaminophen 5-325 Mg Tab PO 2 each Q6H PRN Administration Pain, Moderate (4-6) Dextrose 50 ml 05/14/21 00:26 Dextrose 50% In Water (25gm) 50 Ml Syringe IV Q30MIN PRN Hypoglycemia Protocol Divalproex Sodium 500 mg 05/14/21 10:00 05/16/21 21:[address] 500 Mg Tab PO 500 mg BID NANCY Administration Enoxaparin Sodium 40 mg 05/14/21 22:00 05/16/21 21:23 Enoxaparin 40 Mg/0.4 Ml Inj SUB-Q 40 mg QDAY@2200 NANCY Administration Protocol Sodium Chloride 1,000 mls @ 125 mls/hr 05/14/21 00:30 05/16/21 03:13 Nacl 0.9% 1000 Ml IV 100 mls/hr DIRECT NANCY Administration Ceftriaxone Sodium 1 gm in 50 mls @ 100 mls/hr 05/15/21 14:00 05/16/21 16:32 Rocephin/Ns 1 Gm/50 Ml IV 05/19/21 15:59 100 mls/hr Q24H NANCY Administration Insulin Human Regular 0 units 05/14/21 07:30 05/17/21 06:06 Insulin Regular, Human 100 Units/1 Ml SUB-Q Not Given ACHS NANCY Protocol Magnesium Hydroxide 30 ml 05/14/21 00:26 Magnesium Hydroxide (Mom) Oral Liqd Udc PO Q4H PRN Constipation Morphine Sulfate 4 mg 05/14/21 00:26 Morphine 4 Mg/1 Ml Inj IV Q4H PRN Pain , Severe (7-10) Olanzapine 5 mg 05/14/21 22:00 05/16/21 21:26 Olanzapine 5 Mg Tab PO 5 mg QHS NANCY Administration Ondansetron HCl 4 mg 05/14/21 00:26 Ondansetron 4 Mg/2 Ml Inj IV Q8H PRN Nausea And Vomiting Risperidone 2 mg 05/14/21 10:00 05/16/21 10:45 Risperidone 1 Mg Tab PO 2 mg QAM NANCY Administration Risperidone 3 mg 05/14/21 22:00 05/16/21 21:24 Risperidone 3 Mg Tab PO 3 mg QHS NANCY Administration Sodium Chloride 10 ml 05/14/21 10:00 05/16/21 21:27 Sodium Chloride 0.9% 10 Ml Flush Syringe IV 10 ml BID NANCY Administration Sodium Chloride 10 ml 05/14/21 00:26 Sodium Chloride 0.9% 10 Ml Flush Syringe IV PRN PRN LINE FLUSH Trazodone HCl 50 mg 05/14/21 04:07 Trazodone 50 Mg Tab PO QHS PRN Insomnia Nutrition/Malnutrition Assess - Dietary Evaluation Nutrition/Malnutrition Findings: Nutrition Notes Start: 05/14/21 12:06 Freq: Status: Active Protocol: Document 05/14/21 12:06 SIMON (Rec: 05/14/21 12:07 SIMON [id number]) Nutrition Notes Need for Assessment generated from: MD Order,Education Initial or Follow up Brief Note Current Diet Cardiac/Consistent CHO Subjective/Other Information RD consulted for diet education. Pt in ED at this time. Minimum of two criteria No Nutrition Intervention Follow-Up By: 05/17/21 Additional Comments F/U: diet education needs
[2021-05-17] MEDS: risperiDONE 1 MG TAB PO SCH (12:00)
[2021-05-17] MEDS: DIVALPROEX DR 500 MG TAB PO SCH ×2 (12:00→23:30)
[2021-05-17] MEDS: HYDROcodone/ACETAMINOPHEN 5-325 MG TAB PO PRN (14:22)
[2021-05-17] MEDS: cefTRIAXone/NS 1 GM/50 ML 1 GM/50 ML BAG IV SCH (14:27)
[2021-05-17] MEDS: ENOXAPARIN 40 MG/0.4 ML INJ SUB-Q SCH (23:30)
[2021-05-17] MEDS: risperiDONE 3 MG TAB PO SCH (23:31)
[2021-05-18] MEDS: risperiDONE 1 MG TAB PO SCH ×2 (08:23→12:28)
[2021-05-18] MEDS: DIVALPROEX DR 500 MG TAB PO SCH ×2 (08:23→12:27)
[2021-05-18] MEDS: INSULIN REGULAR, HUMAN 100 UNITS/1 ML SUB-Q SCH ×2 (08:26→12:26)
[2021-05-18 08:39] VITALS: BP 130/57
--- NOTE | 2021-05-18 08:50 | Discharge Summary ---
Providers - Providers Date of Admission: 05/14/21 12:00 Date of discharge: 05/18/21 Attending physician: CORA JENKINS 05/14/21 00:30 Consult to Dietitian/Nutrition [CONS] Routine Physician Instructions: Reason For Exam: Reason for Consult: Diet education 05/14/21 04:13 Consult to Wound/ET Nurse [CONS] Routine Reason For Exam: wound eval- sacral decubitus 05/14/21 04:14 Physical Therapy Evaluation and Treat [CONS] Routine Comment: Reason For Exam: physical deconditioning 05/16/21 17:05 Occupational Therapy Evaluate and Treat [CONS] Routine Comment: Reason For Exam: EVALUATION Primary care physician: [employer] Hospitalization Condition: Fair Hospital course: -- Urinary tract infection Current Visit: Yes Status: Acute Improved -- Acute encephalopathy Current Visit: Yes Status: Acute Improved -- Diabetes mellitus Current Visit: Yes Status: Acute We will monitor Accu-Cheks closely. --Hypertension Current Visit: Yes Status: Acute Moderate control, continue current antihypertensives --History of schizophrenia Current Visit: Yes Status: Acute Stable --Physical deconditioning Current Visit: Yes Status: Acute PT OT recommend subacute rehab versus SNF CM processing the paperwork --Obesity BMI 39.9 Disposition: DC/[place]-03 SNF W [facility] CERT Final Discharge Diagnosis (Prints w/discharge instructions): Urinary tract infection. Acute metabolic encephalopathy. Diabetes mellitus. Hypertension. History of schizophrenia. Physical deconditioning. Obesity BMI 39.9 Time spent for discharge: 35 min Core Measure Documentation - Palliative Care Palliative Care/ Comfort Measures: Not Applicable - Core Measures Any of the following diagnoses?: none Exam - Constitutional Vitals: Temp Pulse Resp BP Pulse Ox 97.9 F 91 H 19 130/57 93 05/18/21 08:34 05/18/21 08:34 05/18/21 08:34 05/18/21 08:34 05/18/21 08:34 General appearance: Present: no acute distress, well-nourished, obese (Morbidly obese) - EENT Eyes: Present: PERRL, EOM intact - Neck Neck: Present: supple, normal ROM - Respiratory Respiratory effort: normal Respiratory: bilateral: diminished, negative: rales, rhonchi, wheezing - Cardiovascular Rhythm: regular Heart Sounds: Present: S1 & S2 - Extremities Extremities: no ischemia, No edema - Abdominal General gastrointestinal: Present: soft, non-tender, non-distended, normal bowel sounds - Integumentary Integumentary: Present: clear, warm - Musculoskeletal Musculoskeletal: strength equal bilaterally, generalized weakness - Psychiatric Psychiatric: appropriate mood/affect, cooperative - Neurologic Neurologic: moves all extremities Plan Activity: advance as tolerated, fall precautions Diet: diabetic, other (Cardiac diet) Special Instructions: physical therapy, occupational therapy Additional Instructions: Fall precautions. If you have worsening symptoms contact MD or go to the emergency room as needed. Physical therapy occupational therapy as tolerated Follow up with: PRIMARY CARE,MD [Primary Care Provider] - 3-5 Days
[2021-05-18] MEDS: cefTRIAXone/NS 1 GM/50 ML 1 GM/50 ML BAG IV SCH (14:09)
--- NOTE | 2021-05-18 16:13 | Progress Note ---
Assessment and Plan Assessment and plan: -- Urinary tract infection Current Visit: Yes Status: Acute Improved -- Acute encephalopathy Current Visit: Yes Status: Acute Improved -- Diabetes mellitus Current Visit: Yes Status: Acute We will monitor Accu-Cheks closely. --Hypertension Current Visit: Yes Status: Acute Moderate control, continue current antihypertensives --History of schizophrenia Current Visit: Yes Status: Acute Stable --Physical deconditioning Current Visit: Yes Status: Acute PT OT recommend subacute rehab versus SNF CM processing the paperwork --Obesity BMI 39.9 --DVT prophylaxis Current Visit: Yes Status: Acute Patient placed on subcutaneous lovenox. Hospitalist Physical - Constitutional Vitals: Temp Pulse Resp BP Pulse Ox 97.9 F 91 H 19 130/57 93 05/18/21 08:34 05/18/21 08:34 05/18/21 08:34 05/18/21 08:34 05/18/21 08:34 General appearance: Present: no acute distress, well-nourished HEART Score - HEART Score Troponin: Troponin T 0.011 ng/mL (0.00-0.029) 05/13/21 23:23 Results - Labs CBC & Chem 7: 05/15/21 04:25 05/15/21 04:25 Labs: Laboratory Last Values WBC 7.2 K/mm3 (4.5-11.0) 05/15/21 04:25 RBC 3.79 M/mm3 (3.65-5.03) 05/15/21 04:25 Hgb 12.1 gm/dl (10.1-14.3) 05/15/21 04:25 Hct 35.2 % (30.3-42.9) 05/15/21 04:25 MCV 93 fl (79-97) 05/15/21 04:25 MCH 32 pg (28-32) 05/15/21 04:25 MCHC 34 % (30-34) 05/15/21 04:25 RDW 14.0 % (13.2-15.2) 05/15/21 04:25 Plt Count 197 K/mm3 (140-440) 05/15/21 04:25 Lymph % (Auto) 32.6 % (13.4-35.0) 05/15/21 04:25 [place] % (Auto) 9.0 % (0.0-7.3) H 08/04/21 04:25 Eos % (Auto) 2.5 % (0.0-4.3) 05/15/21 04:25 Baso % (Auto) 0.6 % (0.0-1.8) 05/15/21 04:25 Lymph # (Auto) 2.3 K/mm3 (1.2-5.4) 05/15/21 04:25 [place] # (Auto) 0.6 K/mm3 (0.0-0.8) 05/15/21 04:25 Eos # (Auto) 0.2 K/mm3 (0.0-0.4) 05/15/21 04:25 Baso # (Auto) 0.0 K/mm3 (0.0-0.1) 05/15/21 04:25 Seg Neutrophils % 55.3 % (40.0-70.0) 05/15/21 04:25 Seg Neutrophils # 4.0 K/mm3 (1.8-7.7) 05/15/21 04:25 PT 15.0 Sec. (12.2-14.9) H 05/15/21 04:25 INR 1.13 (0.87-1.13) 05/15/21 04:25 APTT 53.7 Sec. (24.2-36.6) H 05/13/21 23:23 Sodium 139 mmol/L (137-145) 05/15/21 04:25 Potassium 3.6 mmol/L (3.6-5.0) 05/15/21 04:25 Chloride 104.3 mmol/L (98-107) 05/15/21 04:25 Carbon Dioxide 27 mmol/L (22-30) 05/15/21 04:25 Anion Gap 11 mmol/L 05/15/21 04:25 BUN 13 mg/dL (7-17) 05/15/21 04:25 Creatinine 0.8 mg/dL (0.6-1.2) 05/15/21 04:25 Estimated GFR > 60 ml/min 05/15/21 04:25 BUN/Creatinine Ratio 16 % 05/15/21 04:25 Glucose 125 mg/dL (65-100) H 05/15/21 04:25 POC Glucose 84 mg/dL (70-105) 05/18/21 12:25 Lactic Acid 1.30 mmol/L (0.7-2.0) 05/13/21 23:23 Calcium 8.7 mg/dL (8.4-10.2) 05/15/21 04:25 Magnesium 1.70 mg/dL (1.7-2.3) 05/13/21 23:23 Total Bilirubin 0.60 mg/dL (0.1-1.2) 05/13/21 23:23 AST 14 units/L (5-40) 05/13/21 23:23 ALT 15 units/L (7-56) 05/13/21 23:23 Alkaline Phosphatase 64 units/L (35-129) 05/13/21 23:23 Ammonia 15.0 umol/L (25-60) L 05/13/21 23:23 Total Creatine Kinase 95 units/L (30-135) 05/13/21 23:23 Troponin T 0.011 ng/mL (0.00-0.029) 05/13/21 23:23 Total Protein 5.8 g/dL (6.3-8.2) L 05/13/21 23:23 Albumin 3.1 g/dL (3.9-5) L 05/13/21 23:23 Albumin/Globulin Ratio 1.1 % 05/13/21 23:23 TSH 1.920 mlU/mL (0.270-4.200) 05/13/21 23:23 Urine Color Yellow (Yellow) 05/13/21 Unknown Urine Turbidity Slightly-cloudy (Clear) 05/13/21 Unknown Urine pH 6.0 (5.0-7.0) 05/13/21 Unknown Ur Specific [place] 1.017 (1.003-1.030) 05/13/21 Unknown Urine Protein 30 mg/dl mg/dL (Negative) 05/13/21 Unknown Urine Glucose (UA) >=500 mg/dL (Negative) 05/13/21 Unknown Urine Ketones Tr mg/dL (Negative) 05/13/21 Unknown Urine Blood Mod (Negative) 05/13/21 Unknown Urine Nitrite Neg (Negative) 05/13/21 Unknown Urine Bilirubin Neg (Negative) 05/13/21 Unknown Urine Urobilinogen 2.0 mg/dL (<2.0) 05/13/21 Unknown Ur Leukocyte Esterase Mod (Negative) 05/13/21 Unknown Urine WBC (Auto) 20.0 /HPF (0.0-6.0) H 05/13/21 Unknown Urine RBC (Auto) 9.0 /HPF (0.0-6.0) 05/13/21 Unknown U Epithel Cells (Auto) 8.0 /HPF (0-13.0) 05/13/21 Unknown Urine Bacteria (Auto) 2+ /HPF (Negative) 05/13/21 Unknown Urine Mucus Few /HPF 05/13/21 Unknown Urine Yeast (Budding) Few /HPF 05/13/21 Unknown Valproic Acid < 2.8 ug/mL (50-100) L 05/13/21 23:23 Coronavirus (PCR) Negative (Negative) 05/17/21 09:30 Microbiology: Microbiology 05/13/21 23:24 Peripheral/Venous Blood Culture - Preliminary NO GROWTH AFTER 4 DAYS 05/13/21 23:23 Peripheral/Venous Blood Culture - Preliminary NO GROWTH AFTER 4 DAYS Wiseman/IV: Voiding Method External Female Catheter Active Medications - Current Medications Current Medications: Generic Name Dose Route Start Last Admin Trade Name Freq PRN Reason Stop Dose Admin Acetaminophen 650 mg 05/14/21 00:26 Acetaminophen 325 Mg Tab PO Q4H PRN Pain MILD(1-3)/Fever >100.5/MAZARIEGOS Hydrocodone Bitart/Acetaminophen 2 each 05/14/21 00:26 05/17/21 14:22 Hydrocodone/Acetaminophen 5-325 Mg Tab PO 2 each Q6H PRN Administration Pain, Moderate (4-6) Dextrose 50 ml 05/14/21 00:26 Dextrose 50% In Water (25gm) 50 Ml Syringe IV Q30MIN PRN Hypoglycemia Protocol Divalproex Sodium 500 mg 05/14/21 10:00 05/18/21 12:[address] 500 Mg Tab PO Not Given BID NANCY Enoxaparin Sodium 40 mg 05/14/21 22:00 05/17/21 23:30 Enoxaparin 40 Mg/0.4 Ml Inj SUB-Q 40 mg QDAY@2200 NANCY Administration Protocol Sodium Chloride 1,000 mls @ 125 mls/hr 05/14/21 00:30 05/16/21 03:13 Nacl 0.9% 1000 Ml IV 100 mls/hr DIRECT NANCY Administration Ceftriaxone Sodium 1 gm in 50 mls @ 100 mls/hr 05/15/21 14:00 05/18/21 14:09 Rocephin/Ns 1 Gm/50 Ml IV 05/19/21 15:59 Not Given Q24H NANCY Insulin Human Regular 0 units 05/14/21 07:30 05/18/21 12:26 Insulin Regular, Human 100 Units/1 Ml SUB-Q Not Given ACHS [facility] Protocol Magnesium Hydroxide 30 ml 05/14/21 00:26 Magnesium Hydroxide (Mom) Oral Liqd Udc PO Q4H PRN Constipation Morphine Sulfate 4 mg 05/14/21 00:26 Morphine 4 Mg/1 Ml Inj IV Q4H PRN Pain , Severe (7-10) Olanzapine 5 mg 05/14/21 22:00 05/17/21 23:31 Olanzapine 5 Mg Tab PO 5 mg QHS NANCY Administration Ondansetron HCl 4 mg 05/14/21 00:26 Ondansetron 4 Mg/2 Ml Inj IV Q8H PRN Nausea And Vomiting Risperidone 2 mg 05/14/21 10:00 05/18/21 12:28 Risperidone 1 Mg Tab PO Not Given QAM NANCY Risperidone 3 mg 05/14/21 22:00 05/17/21 23:31 Risperidone 3 Mg Tab PO 3 mg QHS NANCY Administration Sodium Chloride 10 ml 05/14/21 10:00 05/18/21 12:29 Sodium Chloride 0.9% 10 Ml Flush Syringe IV 10 ml BID NANCY Administration Sodium Chloride 10 ml 05/14/21 00:26 Sodium Chloride 0.9% 10 Ml Flush Syringe IV PRN PRN LINE FLUSH Trazodone HCl 50 mg 05/14/21 04:07 Trazodone 50 Mg Tab PO QHS PRN Insomnia Nutrition/Malnutrition Assess - Dietary Evaluation Nutrition/Malnutrition Findings: Nutrition Notes Start: 05/14/21 12:06 Freq: Status: Active Protocol: Document 05/17/21 11:35 BRODERICK (Rec: 05/17/21 11:38 BRODERICK [id number]) Nutrition Notes Need for Assessment generated from: Education Initial or Follow up Brief Note Subjective/Other Information Pt states she cooks and her son shops for her. She does not use salt. Encouraged low Na food choices. Pt had no desire for DM education. Encouraged pt to give handout to son. #1 Nutrition Diagnosis Limited adherence to nutrition -related recommendations Etiology son grocery shops for her As Evidenced by Signs and Symptoms pt eating high sodium deli meats and canned goods Nutrition Intervention Teaching Recipient Patient Learning Readiness Good Teaching Methods Discussion,Handout Response to Teaching Verbalize understanding Education Handouts Provided HTN Nutrition Therapy Barriers to Learning No Barriers RD phone number provided Yes Patient aware of follow up options Yes Revisit per MD consult or patient Sign Off request:
== END 2021-05-18 17:03 | DRG 689 ==
LOC: ED 18:11 → 3A 05-14 00:13 → OBSVTOIN 05-14 12:00 → 3B-SURG 05-14 20:22
PROVIDERS: ADMIT Internal Medicine Geriatric Medicine; ATTEND Internal Medicine
DX: N39.0 Urinary tract infection, site not specified (principal); G93.41 Metabolic encephalopathy; F05 Delirium due to known physiological condition; Z86.59 Personal history of other mental and behavioral disorders; R53.81 Other malaise; M79.606 Pain in leg, unspecified; I10 Essential (primary) hypertension; Z20.822 Contact with and (suspected) exposure to COVID-19; Z90.49 Acquired absence of other specified parts of digestive tract; E11.9 Type 2 diabetes mellitus without complications; Z79.899 Other long term (current) drug therapy; Z79.84 Long term (current) use of oral hypoglycemic drugs; F41.9 Anxiety disorder, unspecified; F20.9 Schizophrenia, unspecified; E11.42 Type 2 diabetes mellitus with diabetic polyneuropathy; E66.9 Obesity, unspecified; Z68.39 Body mass index [BMI] 39.0-39.9, adult; Z71.3 Dietary counseling and surveillance
CPT/HCPCS: 36415; 70450; 71045; 72125; 72170; 74176; 80048; 80053; 80164; 81001; 82140; 82550; 82962; 83735; 84443; 84484; 85025; 85610; 85730; 87040; 87086; 93005; G0378; J0696; J1630; J1650; J1815; J2060; J7030; U0003

== ENCOUNTER 2021-06-30 12:47 | Inpatient (IN) | payer MEDICARE ==
[2021-06-30] MEDS ORDERED: SODIUM CHLORIDE 0.9% 1000 ML IV SOLN IV ONE (13:06)
[2021-06-30] MEDS ORDERED: ACETAMINOPHEN 325 MG TAB PO PRN ×2 (13:06→16:02)
[2021-06-30] MEDS ORDERED: CEFEPIME/NS 2 GM/100 ML 2 GM/100 ML BAG IV ONE (13:06)
--- NOTE | 2021-06-30 13:06 | Emergency Department Report ---
ED General Adult HPI - General Stated complaint: AMS /SEPSIS Time Seen by Provider: 06/30/21 13:05 - History of Present Illness Initial comments: [facility] secondary to reports of altered mental status and difficulty breathing. EMS states that they were called for altered mental status. 3 hours prior to the call, the patient was eating. She then started to have trouble breathing with a cough and congestion. She was also altered. The [facility] staff did not report that she had aspirated or choked. EMS reports that the patient has coarse breath sounds. She seems to be hypoxic and in respiratory distress. They believe that she could be septic from pneumonia. Patient has had no reports of vomiting or diarrhea. She has no history of trauma. Patient states that she does feel like she is short of breath. She has had a cough. She states that she is not having any pain. There is no chest pain. S he denies nausea or vomiting. She has had no dysuria or frequency. - Related Data Previous Rx's Medication Instructions Recorded Last Taken Type Divalproex Dr [Rudy Henry] 500 mg PO BID 30 Days #60 tablet 05/18/21 Unknown Rx HYDROcodone/APAP 5-325 [[place] 1 each PO Q6H PRN #20 tablet 05/18/21 Unknown Rx 5-325 mg TAB] Insulin Regular, Human [HumuLIN R] 0 units SUB-Q ACHS units 05/18/21 Unknown Rx OLANzapine [ZyPREXA] 5 mg PO QHS #30 tablet 05/18/21 Unknown Rx risperiDONE [RisperDAL] 2 mg PO QAM #60 tablet 05/18/21 Unknown Rx risperiDONE [RisperDAL] 3 mg PO QHS #30 tablet 05/18/21 Unknown Rx Allergies Allergy/AdvReac Type Severity Reaction Status Date / Time No Known Allergies Allergy Verified 06/30/21 13:13 ED Review of Systems ROS: Stated complaint: AMS /SEPSIS Other details as noted in HPI Comment: All other systems reviewed and negative Constitutional: weakness (Generalized) Eyes: denies: eye pain ENT: denies: throat pain Respiratory: see HPI Cardiovascular: denies: chest pain Endocrine: denies: unexplained weight loss Gastrointestinal: denies: vomiting Genitourinary: denies: dysuria Musculoskeletal: denies: back pain Skin: denies: rash Neurological: denies: headache Hematological/Lymphatic: denies: easy bruising ED Past Medical Hx - Past Medical History Hx Hypertension: Yes Hx Heart Attack/AMI: No Hx Congestive Heart Failure: No Hx Diabetes: Yes Hx Deep Vein Thrombosis: No Hx Renal Disease: No Hx Sickle Cell Disease: No Hx Arthritis: No Hx Seizures: No Hx Psychiatric Treatment: Yes (anxiety, schizophrenia) Hx Asthma: No Hx COPD: No Hx Dementia: Yes Hx HIV: No Additional medical history: peripheral neuropathy - Surgical History Hx Open Heart Surgery: No Hx Cholecystectomy: Yes Hx Appendectomy: Yes Hx Breast Surgery: No - Family History Family history: hypertension - Social History Smoking Status: Never Smoker - Medications Home Medications: Home Medications Medication Instructions Recorded Confirmed Last Taken Type Divalproex Dr [Depakote Dr] 500 mg PO BID 30 Days #60 tablet 05/18/21 Unknown Rx HYDROcodone/APAP 5-325 [[place] 1 each PO Q6H PRN #20 tablet 05/18/21 Unknown Rx 5-325 mg TAB] Insulin Regular, Human [HumuLIN R] 0 units SUB-Q ACHS units 05/18/21 Unknown Rx OLANzapine [ZyPREXA] 5 mg PO QHS #30 tablet 05/18/21 Unknown Rx risperiDONE [RisperDAL] 2 mg PO QAM #60 tablet 05/18/21 Unknown Rx risperiDONE [RisperDAL] 3 mg PO QHS #30 tablet 05/18/21 Unknown Rx ED Physical Exam - General Limitations: Altered Mental Status, Other (Hypoxic. Pulse ox has been noted.) General appearance: alert, in distress (Mild) - Head Head exam: Present: atraumatic, normocephalic, normal inspection - Eye Eye exam: Present: normal appearance, EOMI. Absent: scleral icterus - ENT ENT exam: Present: mucous membranes dry, normal external ear exam - Neck Neck exam: Present: normal inspection. Absent: meningismus - Respiratory Respiratory exam: Present: respiratory distress (Mild), other (Rhonchi bilaterally) - Cardiovascular Cardiovascular Exam: Present: normal rhythm, tachycardia - GI/Abdominal GI/Abdominal exam: Present: soft. Absent: distended, tenderness - Extremities Exam Extremities exam: Present: normal capillary refill - Back Exam Back exam: Absent: CVA tenderness (R), CVA tenderness (L) - Neurological Exam Neurological exam: Present: alert, oriented X3, reflexes normal - Psychiatric Psychiatric exam: Present: normal affect, normal mood - Skin Skin exam: Present: warm, dry ED Course Vital Signs 06/30/21 06/30/21 06/30/21 13:14 14:14 14:35 Temperature 97.8 F Pulse Rate 97 H 85 Respiratory 30 H 37 H Rate Blood Pressure 81/45 86/41 [Left] O2 Sat by Pulse 95 94 Oximetry 06/30/21 15:41 Temperature 98.1 F Pulse Rate 77 Respiratory 20 Rate Blood Pressure 99/43 [Left] O2 Sat by Pulse 97 Oximetry - Reevaluation(s) Reevaluation #1: 06/30/21 13:05 [id number] was met upon arrival. Patient was seen at the ambulance bay. Orders were placed. Old records reviewed. Reevaluation #2: 06/30/21 15:56 Labs have been reviewed. We will proceed with admission. Patient's mean arterial pressures have still been on the low side. This despite having a normal lactate. We will proceed with admission. Antibiotics have been ordered. Cultures had already been ordered. Patient does have criteria for sepsis at this time she does not have organ failure suggestive of severe sepsis. ED Medical Decision Making - Lab Data Result diagrams: 06/30/21 14:24 06/30/21 14:24 - EKG Data 06/30/21 13:11 Rhythm strip: Monitor shows a normal sinus rhythm that is tachycardic. There is no ectopy. Monitor observed in seconds. - Medical Decision Making Patient presents with reports of altered mental status and difficulty breathing. There was some concern she may have pneumonia. She does have evidence of urinary tract infection with criteria for sepsis. Mean arterial pressures have been low. She does not have lactic acidosis. We will proceed with admission and ongoing management. There was no radiographic evidence of pneumonia. She did not have radiographic evidence suggestive of coronavirus. Patient did not have confusion. She had good respirations. She did not appear to be toxic although she did require admission. Critical Care Time: Yes Critical care attestation.: If time is entered above; I have spent that time in minutes in the direct care of this critically ill patient, excluding procedure time. Critical Care Time: Critical care time of 45 minutes exclusive of all procedures based on persistently low blood pressures consistent with sepsis and a urinary tract infection. ED Disposition Clinical Impression: SIRS (systemic inflammatory response syndrome) Sepsis Qualifiers: Sepsis type: sepsis due to unspecified organism Sepsis acute organ dysfunction status: without acute organ dysfunction Qualified Code(s): A41.9 - Sepsis, unspecified organism UTI (urinary tract infection) Qualifiers: Urinary tract infection type: acute cystitis Hematuria presence: without hematuria Qualified Code(s): N30.00 - Acute cystitis without hematuria Disposition: 09 ADMITTED INPATIENT Is pt being admited?: Yes Does the pt Need Aspirin: No Condition: Stable Referrals: FOREST DU DO [Primary Care Provider] - 3-5 Days
--- NOTE | 2021-06-30 14:08 | XRay Report ---
CHEST 1 VIEW 06/30/2021 12:50 PM INDICATION / CLINICAL INFORMATION: Hypoxia/cough. COMPARISON: 05/13/21. FINDINGS: SUPPORT DEVICES: None. HEART / MEDIASTINUM: No significant abnormality. LUNGS / PLEURA: The patient is rotated to the right. No acute pulmonary or pleural abnormality is see n. No pneumothorax. ADDITIONAL FINDINGS: No significant additional findings. IMPRESSION: No acute findings. Signer Name: Azael Perdue MD Signed: 06/30/2021 2:03 PM Workstation Name: [id number]
[2021-06-30 14:43] LABS: Basophils % (Auto) 0.1 % (0.0-1.8); Eosinophils % (Auto) 0.1 % (0.0-4.3); Hematocrit 31.6 % (30.3-42.9); Hemoglobin 9.8 gm/dl (10.1-14.3); Lymphocytes # (Auto) 1.6 K/mm3 (1.2-5.4); Lymphocytes % (Auto) 11.8 % (13.4-35.0); Mean Corpuscular HGB Conc 31 % (30-34); Mean Corpuscular Volume 98 fl (79-97); Monocytes % (Auto) 14.8 % (0.0-7.3); Platelet Count 195 K/mm3 (140-440); Red Blood Count 3.23 M/mm3 (3.65-5.03); Red Cell Distribution Width 16.3 % (13.2-15.2)
[2021-06-30 15:03] LABS: Albumin 2.6 g/dL (3.9-5); Calcium 8.2 mg/dL (8.4-10.2)
[2021-06-30 15:15] LABS: Chol/HDL Ratio 2.72 %
[2021-06-30 15:20] LABS: Bilirubin,Urine SM (Negative); Blood,Urine NEG (Negative); Color,Urine Amber (Yellow); Hyaline Casts,Urine 27 /LPF; Mucus,Urine 3+ /HPF
[2021-06-30 15:40] LABS: Ictotest,Urine Negative (Negative)
--- NOTE | 2021-06-30 15:48 | History and Physical Report ---
History of Present Illness Chief complaint: She is weak and more confused History of present illness: 75 YO Female [facility] Facility Resident at [facility] with HTN, DM, Schizophrenia, CHANELL, Vascular Dementia, Cerebral Atherosclerosis presents to ED for evaluation. Patient has diminished cognition and provides minimal history. Patient history taken from EMS staff, ED staff, as well as group home facility staff. As per staff the patient has experienced increased confusion today. Patient was found to be hypotensive with a systolic blood pressure in the 80s. EMS was notified and upon arrival the patient was found to be in distress and subsequent transported to [facility] for [facility] er care and evaluation of the aforementioned symptoms. The patient was seen and evaluated in the emergency department. All lab and imaging studies reviewed. The patient was found to have a systolic blood pressure in the 80s. The patient was found to have a urinary tract infection complicated by sepsis. The patient was admitted to medical floor and initiated on sepsis protocol. No reports of fever, chills, chest pain, palpitation, productive cough, skin rash, recent ill contacts, or known exposure to COVID-19. Prior admission on 05/14/2021 reviewed. All medication listed at time of admission has been reconciled. Advanced care planning conducted in ED. Past History Past Medical History: diabetes, hypertension Past Surgical History: appendectomy, cholecystectomy Social history: single Family history: diabetes, hypertension Medications and Allergies Allergies Allergy/AdvReac Type Severity Reaction Status Date / Time No Known Allergies Allergy Verified 06/30/21 13:13 Home Medications Medication Instructions Recorded Confirmed Last Taken Type Divalproex [Rudy Henry] 500 mg PO BID 30 Days #60 tablet 05/18/21 Unknown Rx HYDROcodone/APAP 5-325 [[place] 1 each PO Q6H PRN #20 tablet 05/18/21 Unknown Rx 5-325 mg TAB] Insulin Regular, Human [HumuLIN R] 0 units SUB-Q ACHS units 05/18/21 Unknown Rx OLANzapine [ZyPREXA] 5 mg PO QHS #30 tablet 05/18/21 Unknown Rx risperiDONE [RisperDAL] 2 mg PO QAM #60 tablet 05/18/21 Unknown Rx risperiDONE [RisperDAL] 3 mg PO QHS #30 tablet 05/18/21 Unknown Rx Active Meds: Active Medications Acetaminophen (Acetaminophen 325 Mg Tab) 650 mg PO Q6H PRN PRN Reason: Pain, Mild (1-3) Review of Systems ROS unobtainable: due to mental status Exam - Constitutional Vitals: Temp Pulse Resp BP Pulse Ox 98.1 F 77 20 99/43 97 06/30/21 15:41 06/30/21 15:41 06/30/21 15:41 06/30/21 15:41 06/30/21 15:41 General appearance: Present: mild distress - EENT Eyes: Present: PERRL ENT: clear oral mucosa, hearing decreased - Neck Neck: Present: supple, normal ROM - Respiratory Respiratory effort: normal Respiratory: bilateral: CTA - Cardiovascular Heart Sounds: Present: S1 & S2. Absent: rub, click - Extremities Extremities: pulses symmetrical, No edema Peripheral Pulses: abnormal (Capillary refill greater than 3.5 seconds) - Abdominal General gastrointestinal: Present: soft, non-tender, non-distended, normal bowel sounds Female genitourinary: Present: normal - Integumentary Integumentary: Present: clear, warm, dry - Musculoskeletal Musculoskeletal: generalized weakness - Psychiatric Psychiatric: no appropriate mood/affect, no intact judgment & insight, no memory intact - Neurologic Neurologic: CNII-XII intact, moves all extremities, no gait normal HEART Score - HEART Score Troponin: Troponin T 0.054 ng/mL (0.00-0.029) H 06/30/21 14:24 Results - Labs CBC & Chem 7: 06/30/21 14:24 06/30/21 14:24 Labs: Abnormal lab results 06/30/21 06/30/21 06/30/21 Range/Units 14:24 14:24 Unknown WBC 13.5 H (4.5-11.0) K/mm3 RBC 3.23 L (3.65-5.03) M/mm3 Hgb 9.8 L (10.1-14.3) gm/dl MCV 98 H (79-97) fl RDW 16.3 H (13.2-15.2) % Lymph % (Auto) 11.8 L (13.4-35.0) % [place] % (Auto) 14.8 H (0.0-7.3) % [place] # (Auto) 2.0 H (0.0-0.8) K/mm3 Seg Neutrophils % 73.2 H (40.0-70.0) % Seg Neutrophils # 9.9 H (1.8-7.7) K/mm3 Potassium 5.1 H (3.6-5.0) mmol/L Carbon Dioxide 31 H (22-30) mmol/L BUN 25 H (7-17) mg/dL Glucose 126 H (65-100) mg/dL Calcium 8.2 L (8.4-10.2) mg/dL ALT 6 L (7-56) units/L Troponin T 0.054 H (0.00-0.029) ng/mL Total Protein 5.6 L (6.3-8.2) g/dL Albumin 2.6 L (3.9-5) g/dL LDL Cholesterol Direct 47 L (50-130) mg/dL HDL Cholesterol 37 L (40-59) mg/dL Urine WBC (Auto) 32.0 H (0.0-6.0) /HPF U Epithel Cells (Auto) 37.0 H (0-13.0) /HPF Assessment and Plan - Patient Problems (1) Sepsis Current Visit: Yes Status: Acute Plan to address problem: Sepsis protocol: CBC, CMP, chest x-ray, urinalysis, IV antibiotic therapy, IV fluid resuscitation therapy, monitor urine output every shift, serial lactic acid level, maintain mean arterial pressure greater than or equal to 65. (2) Vascular dementia Current Visit: Yes Status: Acute Qualifiers: Dementia behavioral disturbance: without behavioral disturbance Qualified Code(s): F01.50 - Vascular dementia without behavioral disturbance Plan to address problem: Verbal prompting, verbal redirection, benzodiazepine therapy as clinically indicated. (3) Cerebral atherosclerosis Current Visit: Yes Status: Acute Plan to address problem: Antiplatelet therapy as clinically indicated, supportive care, risk factor reduction. (4) Diastolic CHF Current Visit: Yes Status: Acute Qualifiers: Heart failure chronicity: chronic Qualified Code(s): I50.32 - Chronic diastolic (congestive) heart failure Plan to address problem: Strict I's/O, monitor urine output every shift, daily weight, afterload reduction, supportive care. (5) UTI (urinary tract infection) Current Visit: Yes Status: Acute Qualifiers: Encounter type: initial encounter Plan to address problem: CBC, CMP, urinalysis, IV antibiotic therapy, (6) DVT prophylaxis Current Visit: Yes Status: Acute Plan to address problem: SCD to bilateral lower extremities while in bed (7) Advance care planning Current Visit: Yes Status: Acute Plan to address problem: Disease education conducted, care plan discussed, diagnosis discussed, patient is full code, +30 minutes.
[2021-06-30] MEDS ORDERED: ONDANSETRON 4 MG/2 ML INJ IV PRN (16:02)
[2021-06-30] MEDS ORDERED: HYDROmorphone 1 MG/1 ML INJ IV PRN (16:02)
[2021-06-30] MEDS ORDERED: ALBUTEROL 2.5 MG/3 ML NEBU IH PRN (16:02)
[2021-06-30] MEDS ORDERED: oxyCODONE /ACETAMINOPHEN 5-325MG TAB PO PRN (16:02)
[2021-06-30] MEDS ORDERED: DEXTROSE 50% IN WATER (25GM) 50 ML SYRINGE IV PRN (16:07)
[2021-06-30] MEDS: INSULIN LISPRO 100 UNIT/ML SUB-Q SCH (23:01)
[2021-06-30] MEDS: risperiDONE 3 MG TAB PO SCH (23:02)
[2021-06-30] MEDS: DIVALPROEX DR 500 MG TAB PO SCH (23:02)
[2021-07-01] MEDS: INSULIN LISPRO 100 UNIT/ML SUB-Q SCH ×4 (00:32→19:51)
[2021-07-01 05:16] LABS: Basophils % (Auto) 0.2 % (0.0-1.8); Eosinophils % (Auto) 0.3 % (0.0-4.3); Hemoglobin 9.5 gm/dl (10.1-14.3); Lymphocytes # (Auto) 0.9 K/mm3 (1.2-5.4); Lymphocytes % (Auto) 8.6 % (13.4-35.0); Mean Corpuscular HGB Conc 33 % (30-34); Mean Corpuscular Volume 97 fl (79-97); Monocytes # (Auto) 1.4 K/mm3 (0.0-0.8); Monocytes % (Auto) 13.4 % (0.0-7.3); Platelet Count 167 K/mm3 (140-440); Red Blood Count 2.97 M/mm3 (3.65-5.03); Red Cell Distribution Width 16.4 % (13.2-15.2)
[2021-07-01 06:06] LABS: Albumin 2.1 g/dL (3.9-5); Calcium 8.3 mg/dL (8.4-10.2)
--- NOTE | 2021-07-01 07:20 | Progress Note ---
Assessment and Plan Assessment and plan: 75-year-old woman history of schizophrenia, hypertension, and diabetes who presented from halfway facility with altered mentation and hypotension. Admitted for sepsis. Patient is a status has improved. Awaiting Covid test for transfer back to halfway facility. #Sepsis -Elevated WBC count, RR, HR on admission -Chest x-ray negative -Covid PCR pending -Status post 1 dose cefepime -UA negative, blood cultures collected -lactic acid ordered -unclear etiology at this time #Hypotension -BP 81/45 on admission -No records of hypertensive meds -maintain MAP > 65 -Patient with borderline to low blood pressures while inpatient -will give 1 L fluids #Acute encephalopathy -Improved, patient alert to self and time -History of vascular dementia -could be secondary to hypotension #Type 2 diabetes -Glucose within normal limits -Continue sliding scale Disposition Plan: snf facility Total Time Spent with Patient (Minutes): 20 minutes History Interval history: No acute events overnight. Patient alert to person and time but not place. Denies any complaints. Hospitalist Physical - Physical exam Narrative exam: GENERAL: Well-developed well-nourished. Lying in bed. HEENT: Normocephalic. Atraumatic. CHEST/LUNGS: CTAB on room air HEART/CARDIOVASCULAR: RRR. No murmur, rubs or gallops appreciated. ABDOMEN: +BS. NT/ND. NEURO: No focal motor deficit. Follows all commands. EXTREMITIES: No cyanosis, clubbing or edema. PSYCH: Cooperative. - Constitutional Vitals: Temp Pulse Resp BP Pulse Ox 98.4 F 73 16 90/35 97 07/01/21 04:45 07/01/21 04:45 07/01/21 04:45 07/01/21 04:45 07/01/21 04:45 General appearance: Present: mild distress - Allied Health Allied health notes reviewed: nursing HEART Score - HEART Score Troponin: Troponin T 0.054 ng/mL (0.00-0.029) H 06/30/21 14:24 Results - Labs CBC & Chem 7: 07/01/21 04:48 07/01/21 04:48 Labs: Laboratory Last Values WBC 10.8 K/mm3 (4.5-11.0) 07/01/21 04:48 RBC 2.97 M/mm3 (3.65-5.03) L 07/01/21 04:48 Hgb 9.5 gm/dl (10.1-14.3) L 07/01/21 04:48 Hct 29.0 % (30.3-42.9) L 07/01/21 04:48 MCV 97 fl (79-97) 07/01/21 04:48 MCH 32 pg (28-32) 07/01/21 04:48 MCHC 33 % (30-34) 07/01/21 04:48 RDW 16.4 % (13.2-15.2) H 07/01/21 04:48 Plt Count 167 K/mm3 (140-440) 07/01/21 04:48 Lymph % (Auto) 8.6 % (13.4-35.0) L 07/01/21 04:48 [place] % (Auto) 13.4 % (0.0-7.3) H 07/01/21 04:48 Eos % (Auto) 0.3 % (0.0-4.3) 07/01/21 04:48 Baso % (Auto) 0.2 % (0.0-1.8) 07/01/21 04:48 Lymph # (Auto) 0.9 K/mm3 (1.2-5.4) L 07/01/21 04:48 [place] # (Auto) 1.4 K/mm3 (0.0-0.8) H 07/01/21 04:48 Eos # (Auto) 0.0 K/mm3 (0.0-0.4) 07/01/21 04:48 Baso # (Auto) 0.0 K/mm3 (0.0-0.1) 07/01/21 04:48 Seg Neutrophils % 77.5 % (40.0-70.0) H 07/01/21 04:48 Seg Neutrophils # 8.4 K/mm3 (1.8-7.7) H 07/01/21 04:48 Sodium 139 mmol/L (137-145) 07/01/21 04:48 Potassium 5.1 mmol/L (3.6-5.0) H 07/01/21 04:48 Chloride 106.7 mmol/L (98-107) 07/01/21 04:48 Carbon Dioxide 24 mmol/L (22-30) D 07/01/21 04:48 Anion Gap 13 mmol/L 07/01/21 04:48 BUN 32 mg/dL (7-17) H 07/01/21 04:48 Creatinine 1.0 mg/dL (0.6-1.2) 07/01/21 04:48 Estimated GFR 54 ml/min 07/01/21 04:48 BUN/Creatinine Ratio 32 % 07/01/21 04:48 Glucose 110 mg/dL (65-100) H 07/01/21 04:48 POC Glucose 92 mg/dL (70-105) 07/01/21 06:18 Lactic Acid 1.30 mmol/L (0.7-2.0) 06/30/21 15:55 Calcium 8.3 mg/dL (8.4-10.2) L 07/01/21 04:48 Total Bilirubin 0.30 mg/dL (0.1-1.2) 07/01/21 04:48 AST 12 units/L (5-40) 07/01/21 04:48 ALT 7 units/L (7-56) 07/01/21 04:48 Alkaline Phosphatase 56 units/L (35-129) 07/01/21 04:48 Troponin T 0.054 ng/mL (0.00-0.029) H 06/30/21 14:24 Total Protein 6.0 g/dL (6.3-8.2) L 07/01/21 04:48 Albumin 2.1 g/dL (3.9-5) L 07/01/21 04:48 Albumin/Globulin Ratio 0.5 % 07/01/21 04:48 Triglycerides 64 mg/dL (2-149) 06/30/21 14:24 Cholesterol 101 mg/dL (50-199) 06/30/21 14:24 LDL Cholesterol Direct 47 mg/dL (50-130) L 06/30/21 14:24 HDL Cholesterol 37 mg/dL (40-59) L 06/30/21 14:24 Cholesterol/HDL Ratio 2.72 % 06/30/21 14:24 Urine Color [place] (Yellow) 06/30/21 Unknown Urine Turbidity Slightly-cloudy (Clear) 06/30/21 Unknown Urine pH 5.0 (5.0-7.0) 06/30/21 Unknown Ur Specific [place] 1.023 (1.003-1.030) 06/30/21 Unknown Urine Protein 100 mg/dl mg/dL (Negative) 06/30/21 Unknown Urine Glucose (UA) Neg mg/dL (Negative) 06/30/21 Unknown Urine Ketones Tr mg/dL (Negative) 06/30/21 Unknown Urine Blood Neg (Negative) 06/30/21 Unknown Urine Nitrite Neg (Negative) 06/30/21 Unknown Urine Bilirubin Sm (Negative) 06/30/21 Unknown Urine Ictotest Negative (Negative) 06/30/21 Unknown Urine Urobilinogen 4.0 mg/dL (<2.0) 06/30/21 Unknown Ur Leukocyte Esterase Neg (Negative) 06/30/21 Unknown Urine WBC (Auto) 32.0 /HPF (0.0-6.0) H 06/30/21 Unknown Urine RBC (Auto) 11.0 /HPF (0.0-6.0) 06/30/21 Unknown U Epithel Cells (Auto) 37.0 /HPF (0-13.0) H 06/30/21 Unknown Hyaline Casts 27 /LPF 06/30/21 Unknown Urine Mucus 3+ /HPF 06/30/21 Unknown Microbiology: Microbiology 06/30/21 14:24 Peripheral/Venous Blood Culture - Preliminary Culture in Progress 06/30/21 14:24 Peripheral/Venous Blood Culture - Preliminary Culture in Progress Wiseman/IV: Voiding Method Incontinent Active Medications - Current Medications Current Medications: Generic Name Dose Route Start Last Admin Trade Name Freq PRN Reason Stop Dose Admin Acetaminophen 650 mg 06/30/21 16:02 Acetaminophen 325 Mg Tab PO Q4H PRN Pain MILD(1-3)/Fever >100.5/MAZARIEOGS Albuterol 2.5 mg 06/30/21 16:02 Albuterol 2.5 Mg/3 Ml Nebu IH Q4HRT PRN Shortness Of Breath Dextrose 50 ml 06/30/21 16:07 Dextrose 50% In Water (25gm) 50 Ml Syringe IV Q30MIN PRN Hypoglycemia Protocol Divalproex Sodium 500 mg 06/30/21 22:00 06/30/21 23:[address] 500 Mg Tab PO Not Given BID NANCY Hydromorphone HCl 0.5 mg 06/30/21 16:02 Hydromorphone 1 Mg/1 Ml Inj IV Q24H PRN Pain , Severe (7-10) Insulin Human Lispro 0 unit 06/30/21 18:00 07/01/21 06:31 Insulin Lispro 100 Unit/Ml SUB-Q Not Given Q6HR [facility] Protocol Olanzapine 5 mg 06/30/21 22:00 06/30/21 23:02 Olanzapine 5 Mg Tab PO Not Given QHS NANCY Ondansetron HCl 4 mg 06/30/21 16:02 Ondansetron 4 Mg/2 Ml Inj IV Q8H PRN Nausea And Vomiting Oxycodone/Acetaminophen 1 tab 06/30/21 16:02 Oxycodone /Acetaminophen 5-325mg Tab PO Q12H PRN Pain, Moderate (4-6) Risperidone 2 mg 07/01/21 10:00 Risperidone 1 Mg Tab PO QAM NANCY Risperidone 3 mg 06/30/21 22:00 06/30/21 23:02 Risperidone 3 Mg Tab PO Not Given QHS NANCY Sodium Chloride 10 ml 06/30/21 22:00 06/30/21 23:04 Sodium Chloride 0.9% 10 Ml Flush Syringe IV 10 ml BID NANCY Administration Sodium Chloride 10 ml 06/30/21 16:02 Sodium Chloride 0.9% 10 Ml Flush Syringe IV PRN PRN LINE FLUSH
[2021-07-01] MEDS: DIVALPROEX DR 500 MG TAB PO SCH ×2 (09:46→21:06)
[2021-07-01] MEDS: risperiDONE 1 MG TAB PO SCH (09:46)
[2021-07-01] MEDS ORDERED: LACTATED RINGERS 1,000 ML IV ONE (14:46)
[2021-07-01] MEDS ORDERED: guaiFENesin/CODEINE 100-10MG ORAL LIQD 5 ML PO PRN (20:09)
[2021-07-01] MEDS: risperiDONE 3 MG TAB PO SCH (21:06)
[2021-07-02 05:18] LABS: Hematocrit 29.1 % (30.3-42.9); Hemoglobin 9.6 gm/dl (10.1-14.3); Mean Corpuscular HGB Conc 33 % (30-34); Mean Corpuscular Volume 96 fl (79-97); Platelet Count 191 K/mm3 (140-440); Red Blood Count 3.03 M/mm3 (3.65-5.03); Red Cell Distribution Width 16.2 % (13.2-15.2)
[2021-07-02 05:36] LABS: Calcium 8.2 mg/dL (8.4-10.2)
[2021-07-02] MEDS: INSULIN LISPRO 100 UNIT/ML SUB-Q SCH ×3 (07:01→17:03)
[2021-07-02] MEDS: DIVALPROEX DR 500 MG TAB PO SCH ×2 (11:11→21:13)
[2021-07-02] MEDS: risperiDONE 1 MG TAB PO SCH (11:11)
--- NOTE | 2021-07-02 16:12 | Discharge Summary ---
Providers - Providers Date of Admission: 06/30/21 16:02 Date of discharge: 07/02/21 Attending physician: KIA BRITT MD 07/02/21 08:41 Speech Therapy Evaluation and Treat [CONS] Urgent Reason For Exam: Difficulty with speech- Pending discharge Primary care physician: FOREST DU Hospitalization Condition: Stable Pertinent studies: Blood cultures- negative growth to date Procedures: None. Hospital course: 75 YO Female Long Term Facility Resident at [facility] with HTN, DM, Schizophrenia, CHANELL, Vascular Dementia, Cerebral Atherosclerosis presents to ED for evaluation. Patient has diminished cognition and provides minimal history. Patient history taken from EMS staff, ED staff, as well as senior living facility staff. As per staff the patient has experienced increased confusion today. Patient was found to be hypotensive with a systolic blood pressure in the 80s. EMS was notified and upon arrival the patient was found to be in distress and subsequent transported to [facility] for further care and evaluation of the aforementioned symptoms. The patient was seen and evaluated in the emergency department. All lab and imaging studies reviewed. The patient was found to have a systolic blood pressure in the 80s. The patient was found to have a urinary tract infection complicated by sepsis. The patient was admitted to medical floor and initiated on sepsis protocol. In the ED the patient received 1 dose of cefepime. Urinalysis was negative for UTI and antibiotics were discontinued. Blood cultures have had no growth to date x3 days. The patient received a Covid test that was found to be negative, and she was approved for discharge back to her nursing facility on 07/02/2021. Disposition: 30 STILL A PATIENT Final Discharge Diagnosis (Prints w/discharge instructions): Hypotension with altered mental status Time spent for discharge: 30 min Core Measure Documentation - Palliative Care Palliative Care/ Comfort Measures: Not Applicable - Core Measures Any of the following diagnoses?: none - VTE Discharge Requirements Deep Vein Thrombosis/Pulmonary Embolism Present on Admission: No Has pt received <5 days of overlap therapy or INR<2.0: No Anticoagulant overlap therapy prescribed at discharge: No Contraindication No Overlap Therapy order at DC: Not Indicated Exam - Constitutional Vitals: Temp Pulse Resp BP Pulse Ox 99.1 F 78 20 117/45 92 07/02/21 03:38 07/02/21 12:40 07/02/21 12:40 07/02/21 12:40 07/02/21 12:40 General appearance: Present: no acute distress, cachectic - EENT Eyes: Present: PERRL, EOM intact ENT: hearing intact, clear oral mucosa - Neck Neck: Present: supple, normal ROM - Respiratory Respiratory effort: normal Respiratory: bilateral: rhonchi, negative: CTA, diminished, rales, wheezing - Cardiovascular Rhythm: regular Heart Sounds: Present: S1 & S2 - Extremities Extremities: no ischemia, pulses intact, pulses symmetrical, No edema - Abdominal General gastrointestinal: Present: soft, non-tender, non-distended Female genitourinary: Present: deferred - Rectal Rectal Exam: deferred - Integumentary Integumentary: Present: clear, warm, dry - Musculoskeletal Musculoskeletal: strength equal bilaterally - Psychiatric Psychiatric: other (Dementia at baseline) - Neurologic Neurologic: moves all extremities - Allied Health Allied health notes reviewed: nursing Plan Weight Bearing Status: Weight Bear as Tolerated Diet: diabetic Care Plan Goals: Continue to monitor patient regarding respiratory needs. Health Concerns: Please return to the hospital if patient experiences worsening shortness of breath, altered mentation, weakness, or worsening decline in overall status. Follow up with: FOREST DU DO [Primary Care Provider] - 3-5 Days Prescriptions: risperiDONE [RisperDAL] 0.5 mg PO QAM #30 tablet risperiDONE [RisperDAL ORAL LIQD] 1 mg PO QPM #30 ml
[2021-07-02] MEDS: risperiDONE 3 MG TAB PO SCH (21:12)
[2021-07-02 22:40] VITALS: BP 135/54
== END 2021-07-02 22:56 | DRG 871 ==
LOC: ED 12:47 → 4A 16:02
PROVIDERS: ADMIT Internal Medicine; ATTEND Student in an Organized Health Care Education/Training Program
DX: A41.9 Sepsis, unspecified organism (principal); G93.41 Metabolic encephalopathy; N39.0 Urinary tract infection, site not specified; I50.42 Chronic combined systolic (congestive) and diastolic (congestive) heart failure; F01.50 Vascular dementia, unspecified severity, without behavioral disturbance, psychotic disturbance, mood disturbance, and anxiety; I67.2 Cerebral atherosclerosis; Z20.822 Contact with and (suspected) exposure to COVID-19; I11.0 Hypertensive heart disease with heart failure; F41.1 Generalized anxiety disorder; F20.9 Schizophrenia, unspecified; E11.42 Type 2 diabetes mellitus with diabetic polyneuropathy; Z90.49 Acquired absence of other specified parts of digestive tract; Z83.3 Family history of diabetes mellitus; Z79.4 Long term (current) use of insulin; Z82.49 Family history of ischemic heart disease and other diseases of the circulatory system
CPT/HCPCS: 36415; 71045; 80048; 80053; 80061; 81001; 82140; 82962; 84484; 85025; 85027; 87040; 87086; 94640; 94760; G0378; J0692; J7030; J7120; U0003